=== PATIENT | female | born 1950 | race Caucasian/White ===

== ENCOUNTER 2017-11-25 16:44 | Inpatient (IN) | payer MEDICARE, SELFPAY ==
[2017-11-25] VITALS (12 sets, daily range): BP systolic 96–139; BP diastolic 40–98; PULSE 100–158; RESP 16–20; TEMP 36.6–36.9; O2SAT 94–100; BMI 34.4
[2017-11-25] MEDS: dilTIAZem 25 MG/5 ML SDV 10 MG IV (17:13)
--- NOTE | 2017-11-25 17:24 | DI.RAD.S_ITS ---
PROCEDURE: XR CHEST 1V INDICATIONS: chest pain TECHNIQUE: One view of the chest was acquired. COMPARISON: [facility], , CHEST 1 VIEW, 11/07/2014, 2:26. FINDINGS: Surgical changes and devices: None. Lungs and pleura: No pleural effusions or pneumothorax. Lungs are clear. Mediastinum: Mediastinal contours appear normal. Heart size is normal. Bones and chest wall: No suspicious bony lesions. Overlying soft tissues appear unremarkable. IMPRESSION: No acute process. Dictated by: Amira Dutta M.D. on 11/25/2017 at 17:48 Approved by: Amira Dutta M.D. on 11/25/2017 at 17:48
[2017-11-25 17:38] LABS: Add Manual Diff / Slide Review NO; Basophils Percent Auto 0.8 % (0-2); Eosinophils Percent Auto 1.9 % (2-4); Hemoglobin 13.6 g/dL (12.0-16.0); Lymphocytes Percent Auto 24.7 % (25-40); Mean Corpuscular HGB Conc 33.9 % (30-36); Mean Corpuscular Hemoglobin 35.2 PG (26-34); Mean Corpuscular Volume 103.8 fL (80-100); Monocytes Percent Auto 7.8 % (3-14); Neutrophils Absolute Auto 5100 /uL (3000-5900); Neutrophils Percent Auto 64.8 % (50-75); Platelet Count 304 X10^3/uL (150-400); Red Blood Cell Count 3.85 X10^6/uL (4.0-5.2); Red Cell Distribution Width 14.4 % (11.6-14.8); White Blood Cell Count 7.9 X10^3/uL (4.5-11.0)
[2017-11-25 17:39] LABS: Prothrombin Time 10.9 SECONDS (10.1-12.7)
[2017-11-25 17:41] LABS: PTT Partial Thromboplastin Tim 23 SECONDS (26.4-36.2)
[2017-11-25 17:44] LABS: Alanine Aminotransferase 37 IU/L (9-52); Albumin 4.6 g/dL (3.5-5.0); Albumin Globulin Ratio 1.4 (1.0-2.8); Alkaline Phosphatase 74 U/L (38-126); Aspartate Aminotransferase 37 IU/L (14-36); Bilirubin Total 0.6 mg/dL (0.2-1.3); Blood Urea Nitrogen 39 mg/dL (7-17); Carbon Dioxide 23 mmol/L (22-32); Chloride 104 mmol/L (98-107); Creatine Kinase 123 U/L (30-135); Estimated Glomerular Filt Rate 34.9 mL/min (>60); Globulin 3.3 g/dL (1.7-4.1); Glucose 101 mg/dL (80-110); HEMOLYSIS 32 (0-50); Potassium 4.4 mmol/L (3.4-5.1); Sodium 140 mmol/L (137-145); Total Protein 7.9 g/dL (6.3-8.2)
[2017-11-25 17:56] LABS: Troponin I 0.057 ng/mL (0.01-0.034)
--- NOTE | 2017-11-25 17:56 | PC.NURSE ---
Patient reports history of episodes of rapid heart rate and fluttering in chest over the last couple of years. She states it has always gone away on its own or gone away before I got to the doctor's office. Has never had an EKG showing what rhythm it is but knows it is rapid as she takes her pulse rate at home when it has happened. Today noted as she stepped onto her exercise bike that her heart rate was reading 150bpm. She did not exercise and came directly to the ER. No symptoms, states she does not know when it began but that yesterday when she was on her exercise bike her heart rate was normal.
[2017-11-25 17:59] LABS: CKMB % Relative Index 2.7 % (1.5-5.0); Creatine Kinase MB 3.36 ng/mL (<2.37)
--- NOTE | 2017-11-25 19:18 | PC.NURSE ---
Munira RN Offshore Diver sending Diltiazem drip to ICU after it is mixed.
--- NOTE | 2017-11-25 19:52 | PC.NURSE ---
Pt admitted to ICU with rapid a-fib at rate of 148 bpm. Diltiazem drip. ALert and oriented. VSS. Calm and cooperative.
--- NOTE | 2017-11-25 19:54 | ED_ITS ---
HPI - Arrhythmia/Palpitations General Chief Complaint: Arrhythmia/Palpitations Stated Complaint: BAD EKG Time Seen by Provider: 11/25/17 16:45 Source: patient and family Mode of arrival: ambulatory Limitations: no limitations History of Present Illness HPI narrative: Patient presents to the emergency department at the request of the walk-in clinic for evaluation of an abnormal EKG. Patient was getting on an exercise machine and it registered an elevated heart rate, at which point she went for evaluation. This had happened once before a few months ago and she was told to present for evaluation if it happened again. She denies other symptoms such as chest pain, shortness of breath, palpitations or other. Related Data Home Medications Medication Instructions Recorded Confirmed gabapentin 100 mg capsule 100 mg PO BID cap 11/25/17 11/25/17 levothyroxine 11/25/17 lisinopril 20 1 tab PO DAILY 11/25/17 11/25/17 mg-hydrochlorothiazide 12.5 mg tablet lisinopril-hydrochlorothiazide PO BID 11/25/17 simvastatin 40 mg tablet 40 mg PO QPM 11/25/17 11/25/17 Allergies Allergy/AdvReac Type Severity Reaction Status Date / Time ceftriaxone [CEFTRIAXONE] Allergy Unknown Verified 11/25/17 17:12 spironolactone Allergy Unknown Verified 11/25/17 17:12 [SPIRONOLACTONE] venom-honey bee Allergy Unknown Verified 11/25/17 17:12 [BEE VENOM (HONEY BEE)] Review of Systems Review of Systems All systems reviewed & are unremarkable except as noted in HPI and below Constitutional Denies chills, Denies fever(s), Denies lethargy and Denies weakness Eyes Denies change in vision, Denies eye discharge, Denies irritation and Denies loss of vision ENT Ears, Nose, Mouth, and Throat: Denies change in voice, Denies neck pain and Denies sore throat Cardiovascular Denies chest pain, Denies irregular heart rhythm, Denies lightheadedness, Denies palpitations, Denies dyspnea, Denies dyspnea on exertion and Denies orthopnea Respiratory Denies cough, Denies dyspnea, Denies dyspnea on exertion and Denies wheezing Gastrointestinal Gastrointestinal: Denies abdominal pain, Denies change in bowel habits, Denies diarrhea, Denies nausea and Denies vomiting Genitourinary Denies hematuria, Denies flank pain, Denies urinary incontinence and Denies urinary urgency Musculoskeletal Denies neck pain Integumentary/Breasts Denies pruritus, Denies erythema, Denies rash and Denies wounds Neurologic Denies confusion, Denies loss of vision and Denies weakness Psychiatric Denies anxiety, Denies confusion, Denies depression, Denies homicidal ideation and Denies suicidal ideation Endocrine Denies palpitations Hematologic/Lymphatic Denies easy bruising Allergic/Immunologic Denies wheezing PFSH Medical History Hypertension (Acute) Surgical History H/O total hysterectomy with bilateral salpingo-oophorectomy (BSO) (Acute) History of mastectomy (Acute) Social History household members: spouse Smoking Status: Never smoker alcohol intake: current Exam Narrative Exam Narrative: GENERAL: This is a well-nourished, well-developed patient, in mild distress. HEAD: Atraumatic. Normocephalic. No temporal or scalp tenderness. EYES: Pupils equal round and reactive. Extraocular motions intact. No scleral icterus. No injection or drainage. ENT: Nose without bleeding, purulent drainage or septal hematoma. Throat without erythema, tonsillar hypertrophy or exudate. Uvula midline. Airway patent. NECK: Trachea midline. No JVD or lymphadenopathy. Supple, nontender, no meningeal signs. CARDIOVASCULAR: regular tachycardic rhythm without murmurs, gallops, or rubs. RESPIRATORY: Clear to auscultation. Breath sounds equal bilaterally. No wheezes , rales, or rhonchi. GASTROINTESTINAL: Abdomen soft, non-tender, nondistended. No hepato-splenomegaly , or palpable masses. No guarding. EXTREMITIES: No clubbing, cyanosis, or edema. No joint tenderness, effusion, or edema noted. BACK: Nontender without deformity or crepitance. No flank tenderness. NEURO: AOx3. SKIN: No rash or erythema. Initial Vital Signs Initial Vital Signs: Vital Signs Temperature 98.4 F 11/25/17 16:56 Pulse Rate 158 H 11/25/17 16:56 Respiratory Rate 16 11/25/17 16:56 Blood Pressure 126/97 H 11/25/17 16:56 Pulse Oximetry 100 11/25/17 16:56 Course Orders Ordered: ED Orders 11/25/17 17:00 Complete Blood Count AUTO DIFF Stat Comprehensive Metabolic Panel Stat Partial Thromboplastin Time Stat Prothrombin Time INR Stat Troponin & CK Cardiac Panel Stat 11/25/17 17:24 XR chest 1V Stat EKG-12 Lead Stat 11/25/17 19:24 MRSA PCR Urgent Diltiazem HCl 125 mg/ Dextrose 125 mls @ 5 mls/hr IV TITRATE VENANCIO; Protocol Discontinued Medications Diltiazem HCl (Cardizem) 10 mg IV NOW ONE Stop: 11/25/17 17:06 Last Admin: 11/25/17 17:13 Dose: 10 mg Vital Signs - 8 hr 11/25/17 16:56 11/25/17 17:00 11/25/17 17:13 Temperature 98.4 F Pulse Rate 158 H 156 H 156 H Respiratory Rate 16 16 Blood Pressure 126/97 H 126/97 H Blood Pressure [Left Arm] 106/65 Pulse Oximetry 100 99 11/25/17 17:20 11/25/17 17:51 11/25/17 18:00 Temperature Pulse Rate 104 H 133 H 152 H Respiratory Rate 16 16 16 Blood Pressure Blood Pressure [Left Arm] 106/70 111/75 111/75 Pulse Oximetry 97 97 98 11/25/17 18:29 11/25/17 19:09 Temperature Pulse Rate 156 H 155 H Respiratory Rate 20 16 Blood Pressure 118/86 H Blood Pressure [Left Arm] 117/98 H Pulse Oximetry 96 99 MDM - Arrhythmia/Palpitations Differential Diagnosis Differential diagnosis: Likely palpitations, anxiety, sinus tachycardia, artial fibrillation, artial flutter, ventricular premature beats, supraventricular tachycardia and ventricular tachycardia Lab Data Result diagrams: 11/25/17 17:00 11/25/17 17:00 Lab Results 11/25/17 11/25/17 11/25/17 Range/Units 17:00 17:00 17:00 WBC 7.9 (4.5-11.0) X10^3/uL RBC 3.85 L (4.0-5.2) X10^6/uL Hgb 13.6 (12.0-16.0) g/dL Hct 40.0 (36-46) % MCV 103.8 H (80-100) fL MCH 35.2 H (26-34) PG MCHC 33.9 (30-36) % RDW 14.4 (11.6-14.8) % Plt Count 304 (150-400) X10^3/uL Neut % (Auto) 64.8 (50-75) % Lymph % (Auto) 24.7 L (25-40) % [place] % (Auto) 7.8 (3-14) % Eos % (Auto) 1.9 L (2-4) % Baso % (Auto) 0.8 (0-2) % Neut # (Auto) 5100 (9577-1420) /uL PT 10.9 (10.1-12.7) SECONDS INR 1.0 (0.9-1.3) APTT 23 L (26.4-36.2) SECONDS Sodium 140 (137-145) mmol/L Potassium 4.4 (3.4-5.1) mmol/L Chloride 104 (98-107) mmol/L Carbon Dioxide 23 (22-32) mmol/L BUN 39 H (7-17) mg/dL Creatinine 1.50 H (0.52-1.04) mg/dL Estimated GFR 34.9 L (>60) mL/min BUN/Creatinine Ratio 26.0 H (6-22) Glucose 101 (80-110) mg/dL Calcium 10.0 (8.4-10.2) mg/dL Total Bilirubin 0.6 (0.2-1.3) mg/dL AST 37 H (14-36) IU/L ALT 37 (9-52) IU/L Alkaline Phosphatase 74 (38-126) U/L Total Creatine Kinase 123 (30-135) U/L CK-MB (CK-2) 3.36 H (<2.37) ng/mL CK-MB (CK-2) Rel Index 2.7 (1.5-5.0) % Troponin I 0.057 H (0.01-0.034) ng/mL Total Protein 7.9 (6.3-8.2) g/dL Albumin 4.6 (3.5-5.0) g/dL Globulin 3.3 (1.7-4.1) g/dL Albumin/Globulin Ratio 1.4 (1.0-2.8) ABG Data Attestation: I personally reviewed and interpreted this ABG as follows: ECG Data Attestation: I personally reviewed and interpreted this ECG as follows: Discharge Plan Departure Patient Disposition: Admitted As Inpatient Clinical Impression: Atrial flutter with rapid ventricular response Discharge Date/Time: 11/25/17 19:18 Interventions: ED Discharge Assessment Last Done: 11/25/17 19:09 Admit Date/Time: 11/25/17 18:36 Admit Provider: Gilberto Quintero
[2017-11-25] MEDS: dilTIAZem 25 MG/5 ML SDV 15 MG IV (20:16)
[2017-11-25] MEDS: dilTIAZem 125 MG in DEXTROSE 5 % IN WATER 100 ML IV (20:33)
--- NOTE | 2017-11-25 20:52 | P.HP_ITS ---
History of Present Illness Date Patient Seen: 11/25/17 Time Patient Seen: 18:41 Chief complaint: BAD EKG Narrative: History of present illness Patient is a very pleasant 66 years of age female that notes before getting on her exercise machine she she noticed her pulse rate was running in the 150s on the monitoring device. Patient came to the emergency room for further evaluation. Patient has prior history of tachycardia episode such as this but by the time she gets seen by a physician she is back in a sinus rhythm. The causation of the arrhythmia was not identified. In this case however, patient has noted in rapid AFib by ER physician. Patient was not experiencing any palpitations prior to realizing her heart rate was 150 when getting on the exercise machine. She was having no associated shortness of breath nor chest pain at that time. No nausea. Patient History Medical History Hypertension (Acute) Surgical History H/O total hysterectomy with bilateral salpingo-oophorectomy (BSO) (Acute) History of mastectomy (Acute) Comment: History of hypertension Patient with history of breast cancer in 1993 status post mastectomy History of stem cell transplant and myelo dysplasia History of Graves disease with thyroid replacement therapy History of tachycardia with unclear etiology No history of the following: no history of CHF, diabetes, TIA or CVA, diagnosis of atrial fibrillation atrial fibrillation, congestive heart failure Family & Social History Family History: Reviewed 11/25/17 by Gilberto Quintero MD Family history unavailable: Yes (No history of cancer in first-degree relatives) Social History: household members spouse Prior Living Arrangements Patient is she is a nonsmoker nonalcohol abuser House Safety & Behavioral: Feels Safe in Current Yes Environment Been Physically Hurt or No Threatened By a Person Suicidal Ideation Description None Suicide Plan Description No Plan Tobacco & Substance use: Smoking Status Never smoker alcohol intake current alcohol intake frequency a few times a week Substance Use Type does not use Meds Home Medications Medication Instructions Recorded Confirmed Type allopurinol 300 mg PO QAM 11/25/17 11/25/17 History bupropion HCl 300 mg PO QAM 11/25/17 11/25/17 History gabapentin 100 mg capsule 100 mg PO BID cap 11/25/17 11/25/17 History lansoprazole 15 mg PO QAM 11/25/17 11/25/17 History levothyroxine 112 mcg PO QPM 11/25/17 11/25/17 History lisinopril 20 2 tab PO QAM 11/25/17 11/25/17 History mg-hydrochlorothiazide 12.5 mg tablet simvastatin 40 mg tablet 40 mg PO QPM 11/25/17 11/25/17 History Allergies Allergy/AdvReac Type Severity Reaction Status Date / Time ceftriaxone [CEFTRIAXONE] Allergy Unknown Verified 11/25/17 17:12 spironolactone Allergy Unknown Verified 11/25/17 17:12 [SPIRONOLACTONE] venom-honey bee Allergy Unknown Verified 11/25/17 17:12 [BEE VENOM (HONEY BEE)] Review of Systems Review of Systems All systems reviewed & are unremarkable except as noted in HPI and below Exam Vital Signs (past 8 hours): - 11/25/17 16:56 11/25/17 17:00 11/25/17 17:13 Temperature 98.4 F Pulse Rate 158 H 156 H 156 H Respiratory Rate 16 16 Blood Pressure 126/97 H 126/97 H Blood Pressure [Left Arm] 106/65 Pulse Oximetry 100 99 11/25/17 17:20 11/25/17 17:51 11/25/17 18:00 Temperature Pulse Rate 104 H 133 H 152 H Respiratory Rate 16 16 16 Blood Pressure Blood Pressure [Left Arm] 106/70 111/75 111/75 Pulse Oximetry 97 97 98 11/25/17 18:29 11/25/17 19:09 Temperature Pulse Rate 156 H 155 H Respiratory Rate 20 16 Blood Pressure 118/86 H Blood Pressure [Left Arm] 117/98 H Pulse Oximetry 96 99 Oxygen Delivery Method Room Air Narrative Exam Narrative: General appearance patient is not awake and alert no apparent distress at rest Psychiatric Patient is well oriented to time place and person. Mood is pleasant and cooperative. Affect is appropriate. Skin No rashes or lesions identified Respiratory No wheezes no crackles clear to auscultation with good air flow Eyes Pupils are equal round and reactive to light Ears nose and throat Hearing is intact nose septum to midline no bleeding no oropharyngeal lesions noted Cardiovascular Irregular regular rhythm rate of about 130 per minute. No murmurs noted. PMI nondisplaced. Pulses +3 to extremities Gastrointestinal Soft nontender positive bowel sounds no masses no distention no bruits Neurologic no focal neurologic changes cranial nerves 2-12 grossly intact Motor skeletal Motor strength 5/5 range of motion normal no clubbing noted Objective Labs Result Diagrams: 11/25/17 17:00 11/25/17 17:00 Labs: Laboratory Results - last 24 hr 11/25/17 11/25/17 11/25/17 17:00 17:00 17:00 WBC 7.9 RBC 3.85 L Hgb 13.6 Hct 40.0 MCV 103.8 H MCH 35.2 H MCHC 33.9 RDW 14.4 Plt Count 304 Neut % (Auto) 64.8 Lymph % (Auto) 24.7 L [place] % (Auto) 7.8 Eos % (Auto) 1.9 L Baso % (Auto) 0.8 Neut # (Auto) 5100 PT 10.9 INR 1.0 APTT 23 L Sodium 140 Potassium 4.4 Chloride 104 Carbon Dioxide 23 BUN 39 H Creatinine 1.50 H Estimated GFR 34.9 L BUN/Creatinine Ratio 26.0 H Glucose 101 Calcium 10.0 Total Bilirubin 0.6 AST 37 H ALT 37 Alkaline Phosphatase 74 Total Creatine Kinase 123 CK-MB (CK-2) 3.36 H CK-MB (CK-2) Rel Index 2.7 Troponin I 0.057 H Total Protein 7.9 Albumin 4.6 Globulin 3.3 Albumin/Globulin Ratio 1.4 Assessment & Plan Plan: Assessment/Plan Narrative: 1. Newly diagnosed atrial fibrillation with rapid ventricular response Patient was given a 10 mg IV bolus of diltiazem in the ER. Patient was started on a diltiazem IV infusion at 5 milligrams/hour to start titration for pulse less than 110. Patient still running are fairly notable ventricular response of 139 in the ICU. I requested for the ICU nurse to give the patient an additional 15 mg of diltiazem is an IV bolus. Her blood pressure is stable to permit such bolus. This diltiazem IV infusion to be continue and titrated upward as necessary to maintain pulse less than 110. Note patient has history of Graves disease and treated with Synthroid will check a TSH. Will also request for an Aqua echocardiogram 2D to evaluate for evidence of mitral valve disease also to identify the presence of atrial thrombus if present. A more definitive study would of course be the transesophageal echocardiogram. Patient with a chads Vasc score of 3/9 possible. This puts the puts the patient at risk with an unadjusted ischemic stroke rate of 3.2% per year. Please note the term unadjusted refers to whether the patient was on aspirin. Patient will be started on a anticoagulant medication by tomorrow morning that will be continued in outpatient setting. In the meantime will give patient a dose of Lovenox at 85 mg subcu b.i.d. as therapeutic treatment for the AFib. 2. History of Graves disease status post ablation therapy Continue patient's Synthroid medication. Note will be checking a TSH with a reflex T4 if indicated. 3. Elevated troponin level Will continue to monitor patient's troponin level and obtain a 12 lead EKG if she goes into a sinus rhythm to establish what her baseline EKG is. Time Spent With Patient Time with patient: Greater than 35 minutes (65 min)
[2017-11-25] MEDS: GABAPENTIN 100 MG CAPSULE PO (21:47)
[2017-11-25] MEDS: ENOXAPARIN 100 MG/ML SYRINGE 85 MG SUBCUT (21:47)
[2017-11-25 21:50] LABS: TSH w/ Reflex to FT4 0.39 uIU/mL (0.47-4.68)
[2017-11-25 22:25] LABS: Free T4, Direct Thyroxine 1.22 ng/dL (0.78-2.19)
[2017-11-26] VITALS (17 sets, daily range): BP systolic 78–116; BP diastolic 49–68; PULSE 70–99; RESP 13–19; TEMP 36.5–37.2; O2SAT 94–98
--- NOTE | 2017-11-26 00:55 | PC.NURSE ---
Addendum entered by Arlet Bowie R.N. 11/26/17 06:43: BP has remained somewhat low overnight. Pt remains asymptomatic. MAPs > 65. SR with HR in the 70's. No acute changes this shift. Original Note: Pt converted to SB with HR 54-60's. BP 82/46 (58) - pt asymptomatic without complaints. Remains A/O X 3. Diltiazem GTT turned off. Pt remains in SR currently at 71. Will monitor.
[2017-11-26] MEDS: PANTOPRAZOLE 40 MG TABLET PO (06:39)
[2017-11-26 07:53] LABS: Add Manual Diff / Slide Review NO; Basophils Percent Auto 0.8 % (0-2); Eosinophils Percent Auto 2.1 % (2-4); Hematocrit 33.8 % (36-46); Hemoglobin 11.5 g/dL (12.0-16.0); Lymphocytes Percent Auto 22.9 % (25-40); Mean Corpuscular HGB Conc 33.9 % (30-36); Mean Corpuscular Hemoglobin 35.3 PG (26-34); Mean Corpuscular Volume 104.2 fL (80-100); Monocytes Percent Auto 8.3 % (3-14); Neutrophils Absolute Auto 4800 /uL (3000-5900); Neutrophils Percent Auto 65.9 % (50-75); Platelet Count 234 X10^3/uL (150-400); Red Blood Cell Count 3.24 X10^6/uL (4.0-5.2); Red Cell Distribution Width 14.7 % (11.6-14.8); White Blood Cell Count 7.2 X10^3/uL (4.5-11.0)
[2017-11-26 08:02] LABS: Alanine Aminotransferase 32 IU/L (9-52); Albumin 3.6 g/dL (3.5-5.0); Albumin Globulin Ratio 1.4 (1.0-2.8); Alkaline Phosphatase 60 U/L (38-126); Aspartate Aminotransferase 25 IU/L (14-36); BUN Creatinine Ratio 27.3 (6-22); Bilirubin Total 0.4 mg/dL (0.2-1.3); Blood Urea Nitrogen 41 mg/dL (7-17); Calcium 9.2 mg/dL (8.4-10.2); Carbon Dioxide 26 mmol/L (22-32); Chloride 106 mmol/L (98-107); Creatine Kinase 71 U/L (30-135); Estimated Glomerular Filt Rate 34.9 mL/min (>60); Globulin 2.5 g/dL (1.7-4.1); Glucose 107 mg/dL (80-110); HEMOLYSIS < 15 (0-50); Potassium 4.4 mmol/L (3.4-5.1); Sodium 140 mmol/L (137-145); Total Protein 6.1 g/dL (6.3-8.2)
[2017-11-26 08:13] LABS: Troponin I 0.041 ng/mL (0.01-0.034)
[2017-11-26] MEDS: ENOXAPARIN 100 MG/ML SYRINGE 85 MG SUBCUT (08:46)
[2017-11-26] MEDS: dilTIAZem 30 MG TABLET 60 MG PO (08:46)
[2017-11-26] MEDS: ALLOPURINOL 300 MG TABLET PO (08:48)
[2017-11-26] MEDS: GABAPENTIN 100 MG CAPSULE PO (08:48)
[2017-11-26] MEDS: hydroCHLOROthiazide 25 MG TABLET PO (08:48)
[2017-11-26] MEDS: buPROPion XL 150 MG TAB 300 MG PO (08:51)
--- NOTE | 2017-11-26 13:18 | DI.ECHO.S_ITS ---
Echocardiogram Report + + :Name: ONEIL DE LOS SANTOS Study Date: 11/26/2017 Height: 61 in : :[facility] Weight: 182 lb: : Gender: Female BSA: 1.8 m2 : :: 1950 Age: 66 yrs BP: 95/37 mmHg: :Reason For Study: AFIB : : Performed By: Ami Andino : :Referring: UNSPECIFIED : + + Interpretation Summary Patient was in normal sinus rhythm during the study. Left ventricular wall thickness is mildly increased. The ejection fraction is estimated to be 60-65%. There is moderate mitral regurgitation, directly posteriorly secondary to restricted motion of the posterior mitral valve leaflet. The right ventricle is normal in size and function. Procedure: A two-dimensional transthoracic echocardiogram with color flow and Doppler was performed. The study quality was technically adequate. There is no prior echocardiogram noted for this patient. The heart rate ranged between 75-80 bpm during the study. Left Ventricle: Left ventricular wall thickness is mildly increased. The left ventricle is normal in size. A false chord is noted (normal variant). The ejection fraction is estimated to be 60-65%. Septal motion is consistent with conduction abnormality. Diastolic function could not be accurately assessed due to contradictory data. Right Ventricle: The right ventricle is normal in size and function. TAPSE 1.9 cm. Atria: Both atria are normal in size. There is no Doppler evidence for an interatrial shunt. The thickening of interatrial septum suggests lipomatous hypertrophy. Mitral Valve: There is mild to moderate mitral annular calcification. The mitral valve leaflets appear thickened, but open well. The mitral valve mean gradient is 3 mmHg. There is moderate mitral regurgitation. Aortic Valve: The aortic valve is not well visualized. The aortic valve opens well. Probably trileaflet. There is no hemodynamically significant valvular aortic stenosis. There is mild aortic regurgitation. Tricuspid Valve: The tricuspid valve is normal in structure and function. There is mild tricuspid regurgitation. The right ventricular systolic pressure is estimated at 30 mmHg assuming a right atrial pressure of 3 mm Hg. Pulmonic Valve: The pulmonic valve is normal in structure and function. There is a trace or physiologic amount of pulmonic regurgitation. Great Vessels: The aortic root is normal size. The ascending aorta is normal in size. The aortic arch is normal in size. The pulmonary artery is normal size. The IVC is of normal diameter and collapses greater than 50% with a sniff. This suggests a low right atrial pressure of 3 mm Hg. Pericardium/ Pleura There is a trivial pericardial effusion noted. There is no pleural effusion. MMode/2D Measurements & Calculations LVIDd: 3.7 cm LVOT diam: 1.9 cm LVIDs: 2.3 cm Ao root diam: 2.8 cm FS: 37.8 % asc Aorta Diam: 3.3 cm EPSS: 0.23 cm Ao Arch Diam (Prox Trans): 2.8 cm IVSd: 1.0 cm LVPWd: 1.2 cm LV babcock. diameter/BSA (cm/m^2): 2.0 LV sys. diameter/BSA (cm/m^2): 1.3 LA A2 area: 18.5 cm2 RA long axis: 3.7 cm LA A4 area: 20.2 cm2 RA area: 8.6 cm2 LA length (vol): 5.7 cm RA vol: 17.2 ml LA vol: 55.8 ml RA : 9.5 ml/m2 LA vol index: 30.8 ml/m2 IVC diam: 1.9 cm RVD1 (basal): 2.9 cm TAPSE: 1.9 cm Doppler Measurements & Calculations Ao V2 max: 187.2 cm/sec LVOT Max [place]: 107.3 cm/sec Ao V2 mean: 134.5 cm/sec LV V1 max P.6 mmHg Ao max P.0 mmHg LV V1 VTI: 21.9 cm Ao mean P.1 mmHg ALTAGRACIA(I,D): 1.8 cm2 Ao V2 VTI: 36.6 cm ALTAGRACIA(V,D): 1.7 cm2 sev ratio: 0.60 ALTAGRACIA indexed to BSA (cm^2/m^2): 0.97 MV E max rio: 133.4 cm/sec TR max rio: 258.4 cm/sec MV A max rio: 89.4 cm/sec TR max P.7 mmHg MV E/A: 1.5 Med Peak E' Rio: 6.0 cm/sec E/E' med: 22.2 Lat Peak E' Rio: 9.6 cm/sec E/E' lat: 13.9 E/e' average: 18.1 MV dec time: 0.26 sec MVA(VTI): 1.6 cm2 MV V2 mean: 82.3 cm/sec MV mean P.0 mmHg MV V2 VTI: 39.7 cm _ Reading Physician:01:18 PM
--- NOTE | 2017-11-26 13:25 | CM.DANOTE ---
Discharge Planning/Care Management CM Discharge Assessment Start: 11/26/17 13:22 Freq: Status: Active Protocol: Document 11/26/17 13:22 (Rec: 11/26/17 13:25 [id number]) Discharge Planning Assessment Assigned Naval Architect Specialist SIGNAL TESTER Advance Directives? Yes Advance Directives on File No History Provided By Patient Medical Record Has Patient been admitted in last 30 No days? Prior Living Arrangements House Household Members spouse Type of transporation used prior to Drives own vehicle admit Independent with ADL's Yes Is patient alert and oriented? Yes Caregiver for Another No Discharge Plan Home Referrals Initiated None needed Review Status In Process Met with patient: Notified patient of CM team role and patient understood. Patient does not have any concerns or discharge needs at this time. Patient currently researching medication options that fall under her Medicare Part D coverage. Patient to decide and notify MD of selection prior to discharge. Patient is hopeful to discharge today. Spouse/Umair to provide transportation home.
--- NOTE | 2017-11-26 14:08 | PC.NURSE ---
Called to Dr. Quintero [phone] to clarify medication orders for pt. Pts BP has ranged 80-110s systolic. Although she is asymptomatic of low blood pressure, she has not received her lisinopril this morning as per her home routine. She is scheduled to have diltiazem PO at 1200. Her BP is 100/66. Additionally she is concerned because diltiazem is not covered under her prescription formulary making this a very expensive medication for her to fill. The patient is wondering if there is a different medication that can be prescribed. I spoke with Dr. Quintero via telephone at [phone] who stated he would be down here to round soon and address these concerns.
[2017-11-26] MEDS: WARFARIN 2 MG TABLET 4 MG PO (17:03)
[2017-11-26] MEDS: LISINOPRIL 10 MG TABLET PO (17:03)
[2017-11-26] MEDS: CHLORTHALIDONE 25 MG TABLET PO (17:03)
[2017-11-26] MEDS: METOPROLOL 25 MG TABLET PO (17:17)
--- NOTE | 2017-11-26 18:21 | PC.NURSE ---
joe note pt denies chest discomfort, palpitations, SOB. Pt independent in room and with all ADLs. Dr. Quintero did extensive med teaching with pt and . IV removed, tele removed, pt taken to car in wheelchair.
--- NOTE | 2017-11-26 22:32 | PM.DS.1 ---
History of Present Illness Date Patient Seen: 11/26/17 Time Patient Seen: 12:32 Chief complaint: Rapid heart rate Narrative: History of present illness Patient is a very pleasant 66 years of age female that notes before getting on her exercise machine she she noticed her pulse rate was running in the 150s on the monitoring device. Patient came to the emergency room for further evaluation. Patient has prior history of tachycardia episode such as this but by the time she gets seen by a physician she is back in a sinus rhythm. The causation of the arrhythmia was not identified. In this case however, patient has noted in rapid AFib by ER physician. Patient was not experiencing any palpitations prior to realizing her heart rate was 150 when getting on the exercise machine. She was having no associated shortness of breath nor chest pain at that time. No nausea. Discharge Providers Date of admission: 11/25/17 18:36 Discharge provider: Gilberto Quintero MD Summary Discharge Diagnosis: 1. rapid atrial fibrillation 2. Hypertension 3. History of breast cancer with treatment 4. Myelodysplastic disorder Hospital Course: Patient was admitted to the hospital with rapid AFib initially. She was placed on a diltiazem IV infusion. The serum troponin was checked and negative. Patient notes in questioning that she has had episodes of tachycardia in the past but they were never identified for the arrhythmia that was causing the tachycardia. In this case the AFib was identified. Patient was noted to have a chads Vasc score of 3/9. Anticoagulant therapy is recommended for score of 2 or greater. Patient was in agreement to start on anticoagulant as we discussed. After checking with her insurance company she preferred Coumadin. Following morning the patient was in sinus rhythm. Patient notes that diltiazem was not covered by her insurance in the outpatient setting. Metoprolol was covered. I spoke to the patient's primary care physician Dr. Soni Lucas and she agreed to manage patient's coumdin in outpatient setting. Patient will be discharged today and her next INR will be in a.m. on MondayNovember 29. Patient to call her primary care physician's office to find where to have her blood drawn on Monday morning. Her PCP will direct her on her dosing of her Coumadin. In the meantime patient to be discharged on 2 mg tablets of Coumadin and taking 2 tablets daily equally 4 mg. In view of patient starting on metoprolol at 25 mg t.i.d. will reduce the dose of lisinopril from 40 mg daily down to 10 mg daily. Patient will check her blood pressure later in the day. She will take metoprolol tartrate 25 mg in the morning 1 after lunch and then check her blood pressure and her pulse in the evening. If her pulse rate is low less than 70 it may be prudent to hold the 3rd dose of the metoprolol. If the patient's blood pressure is elevated with a systolic greater than 170 for example or diastolic greater than 90 then she could take an additional dose of lisinopril 10 mg instead of metoprolol if her pulse is less than 70. This is directed on her prescription on discharge. The target INR for her AFib will be between 2 and 3. Will proceed to discharge Status at Discharge Functional status at discharge: independent ambulation Overall status at discharge: patient is back to baseline Time Spent with Patient Greater than 30 minutes (35 min) Exam Vital Signs (past 8 hours): - 11/26/17 15:16 Temperature 99.0 F Pulse Rate 76 Respiratory Rate 16 Blood Pressure 115/68 Oxygen Delivery Method Room Air Narrative Exam Narrative: General appearance Patient is awake and alert no apparent distress Psychiatric Well oriented mood is pleasant affect is appropriate Respiratory Clear to auscultation good airflow no wheezes crackles Cardiovascular Regular in rate and rhythm GI Soft benign nontender positive bowel sounds Objective Labs Result Diagrams: 11/26/17 07:45 11/26/17 07:45 Labs: Laboratory Results - last 24 hr 11/26/17 11/26/17 07:45 07:45 WBC 7.2 RBC 3.24 L Hgb 11.5 L Hct 33.8 L MCV 104.2 H MCH 35.3 H MCHC 33.9 RDW 14.7 Plt Count 234 Neut % (Auto) 65.9 Lymph % (Auto) 22.9 L [place] % (Auto) 8.3 Eos % (Auto) 2.1 Baso % (Auto) 0.8 Neut # (Auto) 4800 Sodium 140 Potassium 4.4 Chloride 106 Carbon Dioxide 26 BUN 41 H Creatinine 1.50 H Estimated GFR 34.9 L BUN/Creatinine Ratio 27.3 H Glucose 107 Calcium 9.2 Total Bilirubin 0.4 AST 25 ALT 32 Alkaline Phosphatase 60 Total Creatine Kinase 71 Troponin I 0.041 H Total Protein 6.1 L Albumin 3.6 Globulin 2.5 Albumin/Globulin Ratio 1.4 Discharge Plan Discharge Plan Patient Disposition: Home, Self-Care Discharge comment: patient's PCP Dr Soni Lucas [phone] will be managing patient's Coumadin dosing in outpatient setting. First INR might be in AM MondayNov 29 and will be designated by Dr Lucas's office early this week. Patient can call Dr Lucas's office to get instructions on where to go to have blood drawn for INR test. Provider Discharge Instructions Diet: Diet as Tolerated and Regular Activity: no exertion until cleared by your PCP. Skin/Wound/Dressing Care Report to your healthcare provider any signs of infection, such as:: chills, fever, increased pain and unusual drainage Discharge Data Attending Provider: Gilberto Quintero Admit Date/Time: 11/25/17 18:36 Discharges patient from system. Discharge Date/Time: 11/26/17 18:24
== END 2017-11-26 18:24 | disposition home or self-care (01) | DRG 309 ==
LOC: ED 18:17 → ICU 11-26 07:32
PROVIDERS: Admitting Provider Internal Medicine; Emergency Provider Emergency Medicine; Visit Provider Internal Medicine
DX: I48.91 Unspecified atrial fibrillation (principal); C94.6 Myelodysplastic disease, not elsewhere classified; I10 Essential (primary) hypertension; E05.00 Thyrotoxicosis with diffuse goiter without thyrotoxic crisis or storm
CPT/HCPCS: 36415; 36591; 71045; 80053; 82550; 82553; 84439; 84443; 84484; 85025; 85610; 85730; 87797; 93005; 93010; 93041; 93306; 96374; 99283; 99285; J1650

== ENCOUNTER → 2017-11-28 11:08 | Outpatient (CLI) | payer MEDICARE, SELFPAY ==
[2017-11-25 19:21] VITALS: BMI 34.4
[2017-11-28 12:27] LABS: INR 1.1 (0.9-1.3); Prothrombin Time 12.3 SECONDS (10.1-12.7)
== END ==
PROVIDERS: PCP Internal Medicine; Visit Provider Internal Medicine
DX: I48.91 Unspecified atrial fibrillation (principal); I48.92 Unspecified atrial flutter; Z79.01 Long term (current) use of anticoagulants
CPT/HCPCS: 36415; 85610

== ENCOUNTER → 2017-12-05 11:31 | Outpatient (CLI) | payer MEDICARE, SELFPAY ==
[2017-11-25 19:21] VITALS: BMI 34.4
[2017-12-05 12:08] LABS: INR 2.8 (0.9-1.3); Prothrombin Time 31.6 SECONDS (10.1-12.7)
== END ==
PROVIDERS: PCP Internal Medicine; Visit Provider Internal Medicine
DX: I48.91 Unspecified atrial fibrillation (principal); I48.92 Unspecified atrial flutter; Z79.01 Long term (current) use of anticoagulants
CPT/HCPCS: 36415; 85610

== ENCOUNTER → 2017-12-12 14:20 | Outpatient (CLI) | payer MEDICARE, SELFPAY ==
[2017-11-25 19:21] VITALS: BMI 34.4
[2017-12-12 14:48] LABS: INR 4.2 (0.9-1.3); Prothrombin Time 46.7 SECONDS (10.1-12.7)
== END ==
PROVIDERS: PCP Internal Medicine; Visit Provider Internal Medicine
DX: I48.91 Unspecified atrial fibrillation (principal); I48.92 Unspecified atrial flutter; Z79.01 Long term (current) use of anticoagulants
CPT/HCPCS: 36415; 85610

== ENCOUNTER → 2017-12-15 14:31 | Outpatient (CLI) | payer MEDICARE, SELFPAY ==
[2017-11-25 19:21] VITALS: BMI 34.4
[2017-12-15 14:54] LABS: Prothrombin Time 21.4 SECONDS (10.1-12.7)
== END ==
PROVIDERS: PCP Internal Medicine; Visit Provider Internal Medicine
DX: I48.92 Unspecified atrial flutter (principal); Z79.01 Long term (current) use of anticoagulants
CPT/HCPCS: 36415; 85610

== ENCOUNTER → 2017-12-21 08:41 | Outpatient (CLI) | payer MEDICARE, SELFPAY ==
[2017-11-25 19:21] VITALS: BMI 34.4
[2017-12-21 10:45] LABS: INR 1.8 (0.9-1.3); Prothrombin Time 19.9 SECONDS (10.1-12.7)
== END ==
PROVIDERS: PCP Internal Medicine; Visit Provider Internal Medicine
DX: I48.91 Unspecified atrial fibrillation (principal); I48.92 Unspecified atrial flutter; Z79.01 Long term (current) use of anticoagulants
CPT/HCPCS: 36415; 85610

== ENCOUNTER → 2017-12-28 08:30 | Outpatient (CLI) | payer MEDICARE, SELFPAY ==
[2017-11-25 19:21] VITALS: BMI 34.4
[2017-12-28 09:50] LABS: INR 3.1 (0.9-1.3); Prothrombin Time 34.5 SECONDS (10.1-12.7)
== END ==
PROVIDERS: PCP Internal Medicine; Visit Provider Internal Medicine
DX: I48.91 Unspecified atrial fibrillation (principal); I48.92 Unspecified atrial flutter; Z79.01 Long term (current) use of anticoagulants
CPT/HCPCS: 36415; 85610

== ENCOUNTER → 2018-01-17 12:15 | Outpatient (CLI) | payer MEDICARE, SELFPAY ==
[2017-11-25 19:21] VITALS: BMI 34.4
[2018-01-17 14:26] LABS: INR 3.3 (0.9-1.3); Prothrombin Time 36.3 SECONDS (10.1-12.7)
== END ==
PROVIDERS: PCP Internal Medicine; Visit Provider Internal Medicine
DX: I48.91 Unspecified atrial fibrillation (principal); I48.92 Unspecified atrial flutter; Z79.01 Long term (current) use of anticoagulants
CPT/HCPCS: 36415; 85610

== ENCOUNTER → 2018-01-22 09:00 | Outpatient (CLI) | payer MEDICARE, SELFPAY ==
[2017-11-25 19:21] VITALS: BMI 34.4
== END ==
PROVIDERS: PCP Internal Medicine
DX: Z23 Encounter for immunization (principal)
CPT/HCPCS: 90471; 90662

== ENCOUNTER → 2018-01-31 10:00 | Outpatient (CLI) | payer MEDICARE, SELFPAY ==
[2017-11-25 19:21] VITALS: BMI 34.4
[2018-01-31 10:53] LABS: INR 2.6 (0.9-1.3); Prothrombin Time 28.4 SECONDS (10.1-12.7)
== END ==
PROVIDERS: PCP Internal Medicine; Visit Provider Internal Medicine
DX: I48.91 Unspecified atrial fibrillation (principal); I48.92 Unspecified atrial flutter; Z79.01 Long term (current) use of anticoagulants
CPT/HCPCS: 36415; 85610

== ENCOUNTER → 2018-02-28 13:54 | Outpatient (CLI) | payer MEDICARE, SELFPAY ==
[2017-11-25 19:21] VITALS: BMI 34.4
[2018-02-28 15:07] LABS: INR 2.7 (0.9-1.3)
== END ==
PROVIDERS: PCP Internal Medicine; Visit Provider Internal Medicine
DX: I48.91 Unspecified atrial fibrillation (principal); I48.92 Unspecified atrial flutter; Z79.01 Long term (current) use of anticoagulants
CPT/HCPCS: 36415; 85610

== ENCOUNTER → 2018-04-02 08:36 | Outpatient (CLI) | payer MEDICARE, SELFPAY ==
[2017-11-25 19:21] VITALS: BMI 34.4
[2018-04-02 09:38] LABS: INR 2.8 (0.9-1.3); Prothrombin Time 33.7 SECONDS (10.1-12.7)
== END ==
PROVIDERS: PCP Internal Medicine; Visit Provider Internal Medicine
DX: I48.91 Unspecified atrial fibrillation (principal); I48.92 Unspecified atrial flutter; Z79.01 Long term (current) use of anticoagulants
CPT/HCPCS: 36415; 85610

== ENCOUNTER → 2018-05-30 12:46 | Outpatient (CLI) | payer MEDICARE, SELFPAY ==
[2017-11-25 19:21] VITALS: BMI 34.4
[2018-05-30 13:19] LABS: INR 2.9 (0.9-1.3); Prothrombin Time 34.2 SECONDS (10.1-12.7)
== END ==
PROVIDERS: PCP Internal Medicine; Visit Provider Internal Medicine
DX: I48.91 Unspecified atrial fibrillation (principal); I48.92 Unspecified atrial flutter; Z79.01 Long term (current) use of anticoagulants
CPT/HCPCS: 36415; 85610

== ENCOUNTER → 2018-07-02 11:23 | Outpatient (CLI) | payer MEDICARE, SELFPAY ==
[2017-11-25 19:21] VITALS: BMI 34.4
[2018-07-02 12:09] LABS: INR 2.7 (0.9-1.3); Prothrombin Time 31.3 SECONDS (10.1-12.7)
== END ==
PROVIDERS: PCP Internal Medicine; Visit Provider Internal Medicine
DX: I48.91 Unspecified atrial fibrillation (principal); I48.92 Unspecified atrial flutter; Z79.01 Long term (current) use of anticoagulants
CPT/HCPCS: 36415; 85610

== ENCOUNTER → 2018-08-01 10:24 | Outpatient (CLI) | payer MEDICARE, SELFPAY ==
[2017-11-25 19:21] VITALS: BMI 34.4
[2018-08-01 11:07] LABS: INR 1.5 (0.9-1.3)
== END ==
PROVIDERS: PCP Internal Medicine; Visit Provider Internal Medicine
DX: I48.91 Unspecified atrial fibrillation (principal); I48.92 Unspecified atrial flutter; Z79.01 Long term (current) use of anticoagulants
CPT/HCPCS: 36415; 85610

== ENCOUNTER → 2018-08-20 08:25 | Outpatient (CLI) | payer MEDICARE, SELFPAY ==
[2017-11-25 19:21] VITALS: BMI 34.4
[2018-08-20 10:28] LABS: INR 3.8 (0.9-1.3); Prothrombin Time 45.1 SECONDS (10.1-12.7)
== END ==
PROVIDERS: PCP Internal Medicine; Visit Provider Internal Medicine
DX: I48.91 Unspecified atrial fibrillation (principal); I48.92 Unspecified atrial flutter; Z79.01 Long term (current) use of anticoagulants
CPT/HCPCS: 36415; 85610

== ENCOUNTER → 2018-08-24 10:27 | Outpatient (CLI) | payer MEDICARE, SELFPAY ==
[2017-11-25 19:21] VITALS: BMI 34.4
[2018-08-24 11:58] LABS: Prothrombin Time 23.6 SECONDS (10.1-12.7)
== END ==
PROVIDERS: PCP Internal Medicine; Visit Provider Internal Medicine
DX: I48.91 Unspecified atrial fibrillation (principal); I48.92 Unspecified atrial flutter; Z79.01 Long term (current) use of anticoagulants
CPT/HCPCS: 36415; 85610

== ENCOUNTER → 2018-09-06 12:46 | Outpatient (CLI) | payer MEDICARE, SELFPAY ==
[2017-11-25 19:21] VITALS: BMI 34.4
[2018-09-06 13:16] LABS: INR 2.5 (0.9-1.3); Prothrombin Time 29.5 SECONDS (10.1-12.7)
== END ==
PROVIDERS: PCP Internal Medicine; Visit Provider Internal Medicine
DX: I48.91 Unspecified atrial fibrillation (principal); I48.92 Unspecified atrial flutter; Z79.01 Long term (current) use of anticoagulants
CPT/HCPCS: 36415; 85610

== ENCOUNTER → 2018-09-20 12:44 | Outpatient (CLI) | payer MEDICARE, SELFPAY ==
[2017-11-25 19:21] VITALS: BMI 34.4
[2018-09-20 13:19] LABS: INR 3.1 (0.9-1.3); Prothrombin Time 36.8 SECONDS (10.1-12.7)
== END ==
PROVIDERS: PCP Internal Medicine; Visit Provider Internal Medicine
DX: I48.91 Unspecified atrial fibrillation (principal); I48.92 Unspecified atrial flutter; Z79.01 Long term (current) use of anticoagulants
CPT/HCPCS: 36415; 85610

== ENCOUNTER → 2018-10-25 12:24 | Outpatient (CLI) | payer MEDICARE, SELFPAY ==
[2017-11-25 19:21] VITALS: BMI 34.4
[2018-10-25 13:24] LABS: Prothrombin Time 23.2 SECONDS (10.1-12.7)
== END ==
PROVIDERS: PCP Internal Medicine; Visit Provider Internal Medicine
DX: I48.91 Unspecified atrial fibrillation (principal); I48.92 Unspecified atrial flutter; Z79.01 Long term (current) use of anticoagulants
CPT/HCPCS: 36415; 85610

== ENCOUNTER → 2018-12-05 10:51 | Outpatient (CLI) | payer MEDICARE, SELFPAY ==
[2017-11-25 19:21] VITALS: BMI 34.4
[2018-12-05 11:42] LABS: INR 3.9 (0.9-1.3); Prothrombin Time 45.8 SECONDS (10.1-12.7)
== END ==
PROVIDERS: PCP Internal Medicine; Visit Provider Internal Medicine
DX: I48.91 Unspecified atrial fibrillation (principal); I48.92 Unspecified atrial flutter; Z79.01 Long term (current) use of anticoagulants
CPT/HCPCS: 36415; 85610

== ENCOUNTER → 2019-03-29 11:55 | Outpatient (CLI) | payer MEDICARE, SELFPAY ==
[2017-11-25 19:21] VITALS: BMI 34.4
[2019-03-29 12:28] LABS: INR 2.1 (0.9-1.3); Prothrombin Time 24.1 SECONDS (10.1-12.7)
== END ==
PROVIDERS: PCP Internal Medicine; Visit Provider Internal Medicine
DX: I48.91 Unspecified atrial fibrillation (principal); I48.92 Unspecified atrial flutter; Z79.01 Long term (current) use of anticoagulants
CPT/HCPCS: 36415; 85610

== ENCOUNTER → 2020-09-21 13:12 | Outpatient (CLI) | payer MEDICARE, SELFPAY ==
[2017-11-25 19:21] VITALS: BMI 34.4
[2020-09-21 16:17] LABS: COVID-19 CEPHEID PCR (VTM/NP) Negative (Negative)
== END ==
PROVIDERS: PCP Internal Medicine; Visit Provider Physician Assistant
DX: Z20.822 Contact with and (suspected) exposure to COVID-19 (principal); Z01.812 Encounter for preprocedural laboratory examination
CPT/HCPCS: C9803; U0003

== ENCOUNTER 2023-07-17 14:00 | Outpatient (RCR) | payer MEDICARE, SELFPAY ==
[2017-11-25 19:21] VITALS: BMI 34.4
--- NOTE | 2023-06-13 14:06 | PT.OIE ---
Current Diagnoses Parkinsonism, unspecified (06/13/23) Other specified disorders of brain (06/13/23) Unspecified disorder of binocular movement (06/13/23) Other abnormalities of gait and mobility (06/13/23) Apraxia (06/13/23) Unspecified fall, sequela (06/13/23) Dependence on wheelchair (06/13/23) Past Medical History (Last Reviewed 11/25/17 @ 20:37 by Gilberto Quintero MD) Hypertension Past Surgical History (Last Reviewed 11/25/17 @ 20:37 by Gilberto Quintero MD) H/O total hysterectomy with bilateral salpingo-oophorectomy (BSO) History of mastectomy Visit Care Team Role Provider Type Soni Lucas MD Family Provider Non-Staff Primary Care Provider Specialty: Internal Medicine Address: [address] [place] [address] [address], [place], [address] Email: Beka Marx MD Attending Provider Non-Staff Referring Provider Specialty: Psychiatry Address: [address] [place] [address], [address], [place], [place], [facility] Email: Physical Therapy Initial Evaluation PT-OP-A Visit Information Start: 06/13/23 10:44 Freq: Status: Active Protocol: Document 06/13/23 10:54 MB (Rec: 06/13/23 11:44 MB [id number]) Out-Patient Physical Therapy Visit Information Visit Information Visit Type Initial Evaluation Visit Note 04/26 before progress note Visit Start Time 11:00 Visit Stop Time 12:00 Visit Number 1 Number of FINISHED GARMENT INSPECTOR Visits 0 Evaluation Information Evaluation Date 06/13/23 PT-OP-B Current Condition Start: 06/13/23 10:44 Freq: Status: Active Protocol: Document 06/13/23 10:54 MB (Rec: 06/13/23 11:44 MB [id number]) Current Condition History of Current Condition Onset Date 2018 Current Complaints Weakness and unsteady walking History of Current Condition Pt, Farhana, and spouse, Donavan, arrive to the appointment and pt transported in the w/c. Pt was diagnosed with supranuclear palsy in April of 2023. Pt saw neurologist in 2019 d/t trouble with walking. She had a small tremor at the time. The movement specialist did a test with her eyes and did not see any tracking/a normal response with an eye exam and she sees neuro opthalmologist in August of 2023. Pt is a furniture walker at home. She uses transfer walker chair in the house as well as as pushes it. She uses a power chair for longer walks. She has a ramp to enter her home and they are starting to use it. She is showering I. She is standing in the shower and has does not have grab bars. She is interested in the OT who does home assessments. She is sitting to do her dressing. Pt has been doing a lot of rigorous exercises in the bed with weights. Kvng states that pt does get more challenged with fatigue. A little bit of extra stress increases the freezing. Treatment Goals Patient/Caregiver Goals To do better with her walking and to slow the progression PT-OP-C Subjective Start: 06/13/23 10:44 Freq: Status: Active Protocol: Document 06/13/23 10:54 MB (Rec: 06/13/23 11:44 MB [id number]) OP-PT Subjective Patient Comments Patient Comments See above Patient Questionnaires Other Questionnaire Name and Score FES score is 55/69 reflecting high concern for falling PT-OP-D Balance Start: 06/13/23 10:44 Freq: Status: Active Protocol: Document 06/13/23 10:54 MB (Rec: 06/13/23 14:03 MB [id number]) OP-PT Balance Assessment Sitting Balance Static Sitting Balance Ability Good Dynamic Sitting Balance Ability Fair Standing Balance Static Standing Balance Ability Fair Dynamic Standing Balance Ability Poor Device Used CGA from PT or wall or w/c walker Balance Tests Other Other Balance Tests Performed Pt must use wall and requires increased time to get into Romberg and she holds position for 20 sec. LOB with Romberg with EC. 3 sec SLS on right leg and 0 sec on left leg. Pinto Fall Scale Copyright Permission PT-OP-G Mobility & Gait Start: 06/13/23 10:44 Freq: Status: Active Protocol: Document 06/13/23 10:54 MB (Rec: 06/13/23 14:03 MB [id number]) OP Gait Assessment Comments Gait Comments Pt requires CGA to gait train with her w/c walker and she requires cues to step closer to it. It is too tall for her and her states it is at that height so that he can use it to push her when it is being used as a w/c. Ed pt and in benefits of a rollator from [employer] to allow a smaller AD for gait at home and in the PT clinic and they are open to going to look for a device PT-OP-H Neuro Start: 06/13/23 10:44 Freq: Status: Active Protocol: Document 06/13/23 10:54 MB (Rec: 06/13/23 14:03 MB [id number]) Coordination Evaluation Upper Extremity Tests Left Finger to Nose Test Minimal Impairment Pronation/Supination Test Minimal Impairment Right Finger to Nose Test Minimal Impairment Pronation/Supination Test Minimal Impairment Lower Extremity Tests Left Alternate Heel to Knee; Heel to Toe Test Minimal Impairment Foot Tapping Test Moderate Impairment Right Alternate Heel to Knee; Heel to Toe Test Minimal Impairment Foot Tapping Test Minimal Impairment Vital Signs Comments Vital Signs Comments Pt denies light-headedness when getting up and so did not check orthostatics PT-OP-J Posture/Palpation/Skin Start: 06/13/23 10:44 Freq: Status: Active Protocol: Document 06/13/23 10:54 MB (Rec: 06/13/23 14:03 MB [id number]) Posture Evaluation Comments Posture Comments Severe scoliotic posture in standing with flexed posture at hips and SB and rotation to the right PT-OP-K Range of Motion Start: 06/13/23 10:44 Freq: Status: Active Protocol: Document 06/13/23 10:54 MB (Rec: 06/13/23 14:03 MB [id number]) Shoulder Goniometric Range of Motion Shoulder Left Shoulder ROM WFL No Testing Position Sitting Flexion 120 Right Shoulder ROM WFL Yes Testing Position Sitting PT-OP-M Strength Start: 06/13/23 10:44 Freq: Status: Active Protocol: Document 06/13/23 10:54 MB (Rec: 06/13/23 14:03 MB [id number]) Shoulder Strength Shoulder Manual Muscle Testing Left Flexion 4 Good Abduction (C5) 4 Good Right Flexion 4+ Good+ Abduction (C5) 4+ Good+ Hip Strength Hip Manual Muscle Testing Bilateral Flexion (L2) 4+ Good+ Knee Strength Knee Manual Muscle Testing Bilateral Flexion (S2) 4+ Good+ Extension (L3) 4+ Good+ Ankle/Foot Strength Ankle and Foot Manual Muscle Testing Bilateral Dorsiflexion (L4) 4+ Good+ PT-OP-Q Treatments Start: 06/13/23 10:44 Freq: Status: Active Protocol: Document 06/13/23 10:54 MB (Rec: 06/13/23 14:03 MB [id number]) Neuro Re-Education Treatment Balance Activities Balance testing Comments Romberg, Romberg EC and SLS all performed and see findings above 30 sec STS Comments Tried twice: once from gold soft chair with arms and pt cannot perform one rep. Second trial from BIG chair and pt can perform 5 reps in 30 sec with decreased controlled descent TUG Comments 26 sec with use of her w/c walker Self-Care/Home Management Treatment Education Other Education Ed pt and in dosage and structure of LSVT, ed in functional task hiearchy form and how to pick activities that she would like to work on with PT, ed in benefits of a small LRAD to use for gait in the home rather than the w/c walker or furniture cruising and for the benefit of gait in the clinic and they are agreeable to go to [employer] to look at ADs/DME PT-OP-T Assessment and Plan Start: 06/13/23 10:44 Freq: Status: Active Protocol: Document 06/13/23 10:54 MB (Rec: 06/13/23 11:44 MB [id number]) Physical Therapy Assessment Rehab Potential Rehabilitation Potential Fair Evaluation Complexity Number of Personal Factors/Comorbidities 1-2 Number of Body Systems Impaired 3 Clinical Presentation at Evaluation Evolving Impairments Impairments Activity Tolerance,Balance, Coordination,Functional Activities,Functional Mobility ,Gait,Posture,ROM,Strength, Transfers Goals 4 Impairment FES score is 55/69 Intermediate Goal (LTG) Pt will present with score of no more than 45/64 on Falls Efficacy Scale to decrease perception of falls and fall risk. LTG Duration 5 weeks 3 Impairment Lack of PD specific HEP Intermediate Goal (LTG) Pt will perform BIG exercises and functional activities with no more than cues from to improve amplitude of movement, balance and strength. LTG Duration 5 weeks 2 Impairment TUG in 26 sec with use of her w/c walker [employer] Goal (LTG) Pt will perform TUG in no more than 15 sec with use of LRAD to decrease fall risk. LTG Duration 5 weeks 1 Impairment 5 reps STS in 30 sec in BIG chair Intermediate Goal (LTG) Pt will perform at least 12 reps STS in BIG chair in 30 sec to improve functional balance with transfers. LTG Duration 5 weeks Assessment Summary Assessment Pt is a 72 y/o female presenting to the clinic via use of w/c and support of her , Kvng. They report she has a working diagnosis of supranuclear palsy and that she has one more dopamine uptake test and a neuro opthamologist visit that will confirm diagnosis versus corticobasilar syndrome. Pt has mild coordination changes, greater on the left, with testing. She has decreased left shoulder range and strength compared to the right . She has significant scoliosis which alters standing posture and this may affect shoulder range as well as balance. Transfers, balance and gait seem to be pt's biggest challenges during PT assessment and she also verbalizes these as her biggest challenges. Her is very supportive and appears in good health and so LSVT BIG trial to improve transfers, gait and balance in a patient with neurodegenerative disease is appropriate. Physical Therapy Plan Frequency and Duration Frequency of Treatment 4x/Week Duration of treatment (weeks) 5 Plan of Care Start Date 06/13/23 Plan of Care End Date 07/24/23 Therapeutic Interventions Therapeutic Interventions Balance Training,Canalithic Repositioning,Coordination Training,Gait Training,Home Exercise Program,Neuromuscular Re-education,Patient/ Caregiver Education,Self-Care/ Home Management,Therapeutic Activities,Therapeutic Exercises Modalities Cold Pack/Ice Massage,Hot Packs Other Referrals/Consults Referrals/Consults Recommended [facility] for home assessment per pt request Next Visit Focus/Plan Next Note Type Treatment Note Next Visit Plan Initiate BIG exercises. Funtional tasks to include buttoning, handwriting and getting in and out of the car.
--- NOTE | 2023-06-13 14:06 | PT.OPPOC ---
Physical, Occupational & Speech Therapy At [facility] Current Diagnoses Parkinsonism, unspecified (06/13/23) Other specified disorders of brain (06/13/23) Unspecified disorder of binocular movement (06/13/23) Other abnormalities of gait and mobility (06/13/23) Apraxia (06/13/23) Unspecified fall, sequela (06/13/23) Dependence on wheelchair (06/13/23) Visit Care Team Role Provider Type Soni Lucas MD Family Provider Non-Staff Primary Care Provider Specialty: Internal Medicine Address: [address] [place] [address] [address], [place], [address] Email: Beka Marx MD Attending Provider Non-Staff Referring Provider Specialty: Psychiatry Address: [address] [place] [address], [address], [place], [address] Email: Plan Of Care PT-OP-T Assessment and Plan Start: 06/13/23 10:44 Freq: Status: Active Protocol: Document 06/13/23 10:54 MB (Rec: 06/13/23 11:44 MB [id number]) Physical Therapy Assessment Rehab Potential Rehabilitation Potential Fair Evaluation Complexity Number of Personal Factors/Comorbidities 1-2 Number of Body Systems Impaired 3 Clinical Presentation at Evaluation Evolving Impairments Impairments Activity Tolerance,Balance, Coordination,Functional Activities,Functional Mobility ,Gait,Posture,ROM,Strength, Transfers Goals 4 Impairment FES score is 55/69 Senior Care Goal (LTG) Pt will present with score of no more than 45/64 on Falls Efficacy Scale to decrease perception of falls and fall risk. LTG Duration 5 weeks 3 Impairment Lack of PD specific HEP Senior Care Goal (LTG) Pt will perform BIG exercises and functional activities with no more than cues from to improve amplitude of movement, balance and strength. LTG Duration 5 weeks 2 Impairment TUG in 26 sec with use of her w/c walker Sports Psychologist Goal (LTG) Pt will perform TUG in no more than 15 sec with use of LRAD to decrease fall risk. LTG Duration 5 weeks 1 Impairment 5 reps STS in 30 sec in BIG chair Sports Psychologist Goal (LTG) Pt will perform at least 12 reps STS in BIG chair in 30 sec to improve functional balance with transfers. LTG Duration 5 weeks Assessment Summary Assessment Pt is a 72 y/o female presenting to the clinic via use of w/c and support of her , Kvng. They report she has a working diagnosis of supranuclear palsy and that she has one more dopamine uptake test and a neuro opthamologist visit that will confirm diagnosis versus corticobasilar syndrome. Pt has mild coordination changes, greater on the left, with testing. She has decreased left shoulder range and strength compared to the right . She has significant scoliosis which alters standing posture and this may affect shoulder range as well as balance. Transfers, balance and gait seem to be pt's biggest challenges during PT assessment and she also verbalizes these as her biggest challenges. Her is very supportive and appears in good health and so LSVT BIG trial to improve transfers, gait and balance in a patient with neurodegenerative disease is appropriate. Physical Therapy Plan Frequency and Duration Frequency of Treatment 4x/Week Duration of treatment (weeks) 5 Plan of Care Start Date 06/13/23 Plan of Care End Date 07/24/23 Therapeutic Interventions Therapeutic Interventions Balance Training,Canalithic Repositioning,Coordination Training,Gait Training,Home Exercise Program,Neuromuscular Re-education,Patient/ Caregiver Education,Self-Care/ Home Management,Therapeutic Activities,Therapeutic Exercises Modalities Cold Pack/Ice Massage,Hot Packs Other Referrals/Consults Referrals/Consults Recommended [facility] for home assessment per pt request Next Visit Focus/Plan Next Note Type Treatment Note Next Visit Plan Initiate BIG exercises. Funtional tasks to include buttoning, handwriting and getting in and out of the car. Plan of Care Dates Plan of Care Start Date 06/13/23 Plan of Care End Date 07/24/23 Electronically Signed by: Samina James, PT 06/13/23 4239 If you are in agreement with this Plan of Care, please return a signed and dated copy. I have reviewed this Plan of Care and certify that the skilled therapy services above are required to meet the patient?s needs. Physician Signature Date Printed Name and Credentials Clinical Instructor Signature Printed Name and Credentials
--- NOTE | 2023-06-20 13:38 | PT.OTN ---
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) Other abnormalities of gait and mobility (06/20/23) Apraxia (06/20/23) Unspecified fall, sequela (06/20/23) Dependence on wheelchair (06/20/23) Physical Therapy Treatment Note PT-OP-A Visit Information Start: 06/13/23 10:44 Freq: Status: Active Protocol: Document 06/20/23 11:18 MB (Rec: 06/20/23 13:38 MB [id number]) Out-Patient Physical Therapy Visit Information Visit Information Visit Type Treatment Note Visit Note 05/27 before progress note Visit Start Time 11:18 Visit Stop Time 12:15 Visit Number 2 Number of CALL CENTER RECRUITER Visits 0 PT-OP-B Current Condition Start: 06/13/23 10:44 Freq: Status: Active Protocol: Document 06/13/23 10:54 MB (Rec: 06/13/23 11:44 MB [id number]) Current Condition History of Current Condition Onset Date 2018 Current Complaints Weakness and unsteady walking History of Current Condition Pt, Farhana, and spouse, Donavan, arrive to the appointment and pt transported in the w/c. Pt was diagnosed with supranuclear palsy in April of 2023. Pt saw neurologist in 2019 d/t trouble with walking. She had a small tremor at the time. The movement specialist did a test with her eyes and did not see any tracking/a normal response with an eye exam and she sees neuro opthalmologist in August of 2023. Pt is a furniture walker at home. She uses transfer walker chair in the house as well as as pushes it. She uses a power chair for longer walks. She has a ramp to enter her home and they are starting to use it. She is showering I. She is standing in the shower and has does not have grab bars. She is interested in the OT who does home assessments. She is sitting to do her dressing. Pt has been doing a lot of rigorous exercises in the bed with weights. Kvng states that pt does get more challenged with fatigue. A little bit of extra stress increases the freezing. Treatment Goals Patient/Caregiver Goals To do better with her walking and to slow the progression PT-OP-C Subjective Start: 06/13/23 10:44 Freq: Status: Active Protocol: Document 06/20/23 11:18 MB (Rec: 06/20/23 13:38 MB [id number]) OP-PT Subjective Patient Comments Patient Comments Pt and , Kvng, reviewed the functional task sheet and a lot of the activities are similar. She would like to work on hand writing, buttoning, pill mobility, getting in and out of low and deep seats and would like to work on car transfer. PT-OP-D Balance Start: 06/13/23 10:44 Freq: Status: Active Protocol: Document 06/13/23 10:54 MB (Rec: 06/13/23 14:03 MB [id number]) OP-PT Balance Assessment Sitting Balance Static Sitting Balance Ability Good Dynamic Sitting Balance Ability Fair Standing Balance Static Standing Balance Ability Fair Dynamic Standing Balance Ability Poor Device Used CGA from PT or wall or w/c walker Balance Tests Other Other Balance Tests Performed Pt must use wall and requires increased time to get into Romberg and she holds position for 20 sec. LOB with Romberg with EC. 3 sec SLS on right leg and 0 sec on left leg. Pinto Fall Scale Copyright Permission PT-OP-G Mobility & Gait Start: 06/13/23 10:44 Freq: Status: Active Protocol: Document 06/13/23 10:54 MB (Rec: 06/13/23 14:03 MB [id number]) OP Gait Assessment Comments Gait Comments Pt requires CGA to gait train with her w/c walker and she requires cues to step closer to it. It is too tall for her and her states it is at that height so that he can use it to push her when it is being used as a w/c. Ed pt and in benefits of a rollator from [employer] to allow a smaller AD for gait at home and in the PT clinic and they are open to going to look for a device PT-OP-H Neuro Start: 06/13/23 10:44 Freq: Status: Active Protocol: Document 06/13/23 10:54 MB (Rec: 06/13/23 14:03 MB [id number]) Coordination Evaluation Upper Extremity Tests Left Finger to Nose Test Minimal Impairment Pronation/Supination Test Minimal Impairment Right Finger to Nose Test Minimal Impairment Pronation/Supination Test Minimal Impairment Lower Extremity Tests Left Alternate Heel to Knee; Heel to Toe Test Minimal Impairment Foot Tapping Test Moderate Impairment Right Alternate Heel to Knee; Heel to Toe Test Minimal Impairment Foot Tapping Test Minimal Impairment Vital Signs Comments Vital Signs Comments Pt denies light-headedness when getting up and so did not check orthostatics PT-OP-J Posture/Palpation/Skin Start: 06/13/23 10:44 Freq: Status: Active Protocol: Document 06/13/23 10:54 MB (Rec: 06/13/23 14:03 MB [id number]) Posture Evaluation Comments Posture Comments Severe scoliotic posture in standing with flexed posture at hips and SB and rotation to the right PT-OP-K Range of Motion Start: 06/13/23 10:44 Freq: Status: Active Protocol: Document 06/13/23 10:54 MB (Rec: 06/13/23 14:03 MB [id number]) Shoulder Goniometric Range of Motion Shoulder Left Shoulder ROM WFL No Testing Position Sitting Flexion 120 Right Shoulder ROM WFL Yes Testing Position Sitting PT-OP-M Strength Start: 06/13/23 10:44 Freq: Status: Active Protocol: Document 06/13/23 10:54 MB (Rec: 06/13/23 14:03 MB [id number]) Shoulder Strength Shoulder Manual Muscle Testing Left Flexion 4 Good Abduction (C5) 4 Good Right Flexion 4+ Good+ Abduction (C5) 4+ Good+ Hip Strength Hip Manual Muscle Testing Bilateral Flexion (L2) 4+ Good+ Knee Strength Knee Manual Muscle Testing Bilateral Flexion (S2) 4+ Good+ Extension (L3) 4+ Good+ Ankle/Foot Strength Ankle and Foot Manual Muscle Testing Bilateral Dorsiflexion (L4) 4+ Good+ PT-OP-Q Treatments Start: 06/13/23 10:44 Freq: Status: Active Protocol: Document 06/20/23 11:18 MB (Rec: 06/20/23 13:38 MB [id number]) Therapeutic Exercises Sitting Exercises Side to side Equipment Used BIG chair Reps/Minutes 5 to each side Comments Cues for form, counting, BIG movement and arm and leg movement Floor to ceiling Equipment Used BIG chair Reps/Minutes 5 Comments Cues for moving BIG, making and effort, for counting and arm movement Standing Exercises Adapted side rock and reach Equipment Used BIG chair in front Reps/Minutes 10 Comments Cues to start in start position, palm up, pivot on back toe and reach Adapted forward rock and reach Equipment Used BIG chair at side Reps/Minutes 10 Comments Cues and demo for foot stagger , BIG front toe and BIG back heel Adapted backwards step Equipment Used BIG chair at side Reps/Minutes 10 each side Comments Cues for BIG hand, BIG step back, BIG front toe, weigh shift Adapted side step Equipment Used BIG chair in front Reps/Minutes 10 each side Comments Cues to look to side as stepping to side and to step foot back Adapted forward stepping Equipment Used BIG chair at side Reps/Minutes 10 each side Comments Cues for form and especially to step fully back and to increase effort Therapeutic Activity Therapeutic Activity BIG transfer into passenger seat Comments First training to back up to seat, lock rollator, to sit back BIG and then to bring one leg in BIG and then the other leg in BIG BIG STS Reps/Minutes 5 Comments Cues to shift weight forward using arms to unweight hips and then cues for final hand position with palms forward and arms lower and at side Gait Training Gait Activity Gait training with rollator Comments Pt and got rollator from [employer]. PT raises arms 1 hole height. Ed pt in BIG stepping and stepping closer to the walker, ed pt in proper STS using rollator, backing up with it, locking it and then reaching back for the seat and cues to push up from the seat. Also practiced transfers from locked rollator with it backed against the wall. Gait inside clinic and out to car with ongoing cues to walk BIG, step close, walk younger PT-OP-T Assessment and Plan Start: 06/13/23 10:44 Freq: Status: Active Protocol: Document 06/20/23 11:18 MB (Rec: 06/20/23 13:38 MB [id number]) Physical Therapy Assessment Rehab Potential Rehabilitation Potential Fair Evaluation Complexity Number of Personal Factors/Comorbidities 1-2 Number of Body Systems Impaired 3 Clinical Presentation at Evaluation Evolving Impairments Impairments Activity Tolerance,Balance, Coordination,Functional Activities,Functional Mobility ,Gait,Posture,ROM,Strength, Transfers Goals 4 Impairment FES score is 55/69 Long-Term Goal (LTG) Pt will present with score of no more than 45/64 on Falls Efficacy Scale to decrease perception of falls and fall risk. LTG Duration 5 weeks 3 Impairment Lack of PD specific HEP Almond Pan Finisher Goal (LTG) Pt will perform BIG exercises and functional activities with no more than cues from to improve amplitude of movement, balance and strength. LTG Duration 5 weeks 2 Impairment TUG in 26 sec with use of her w/c walker Long-Term Goal (LTG) Pt will perform TUG in no more than 15 sec with use of LRAD to decrease fall risk. LTG Duration 5 weeks 1 Impairment 5 reps STS in 30 sec in BIG chair Almond Pan Finisher Goal (LTG) Pt will perform at least 12 reps STS in BIG chair in 30 sec to improve functional balance with transfers. LTG Duration 5 weeks Assessment Summary Assessment Initiated BIG exercises today and pt tends to make smaller movements and occ questionable effort vs very poor endurance . Ongoing cues to increase effort and to make movement BIG, cues to shift weight for stepping and to bring foot back. Also initiated BIG gait training with rollator today. Spouse, Kvng, is very supportive. Physical Therapy Plan Frequency and Duration Frequency of Treatment 4x/Week Duration of treatment (weeks) 5 Plan of Care Start Date 06/13/23 Plan of Care End Date 07/24/23 Therapeutic Interventions Therapeutic Interventions Balance Training,Canalithic Repositioning,Coordination Training,Gait Training,Home Exercise Program,Neuromuscular Re-education,Patient/ Caregiver Education,Self-Care/ Home Management,Therapeutic Activities,Therapeutic Exercises Modalities Cold Pack/Ice Massage,Hot Packs Other Referrals/Consults Referrals/Consults Recommended [facility] for home assessment per pt request Next Visit Focus/Plan Next Note Type Treatment Note Next Visit Plan Review adapted BIG exercises. Funtional tasks to include buttoning, handwriting, pill moving, getting in and out of low and deep seats and getting in and out of the car.
--- NOTE | 2023-06-21 11:42 | PT.OTN ---
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) Other abnormalities of gait and mobility (06/21/23) Apraxia (06/21/23) Unspecified fall, sequela (06/21/23) Dependence on wheelchair (06/21/23) Physical Therapy Treatment Note PT-OP-A Visit Information Start: 06/13/23 10:44 Freq: Status: Active Protocol: Document 06/21/23 10:34 MB (Rec: 06/21/23 11:42 MB [id number]) Out-Patient Physical Therapy Visit Information Visit Information Visit Type Treatment Note Visit Note 06/24 before progress note Visit Start Time 10:34 Visit Stop Time 11:30 Visit Number 3 Number of MARKETING OPERATIONS CONSULTANT Visits 0 PT-OP-B Current Condition Start: 06/13/23 10:44 Freq: Status: Active Protocol: Document 06/13/23 10:54 MB (Rec: 06/13/23 11:44 MB [id number]) Current Condition History of Current Condition Onset Date 2018 Current Complaints Weakness and unsteady walking History of Current Condition Pt, Farhana, and spouse, Donavan, arrive to the appointment and pt transported in the w/c. Pt was diagnosed with supranuclear palsy in April of 2023. Pt saw neurologist in 2019 d/t trouble with walking. She had a small tremor at the time. The movement specialist did a test with her eyes and did not see any tracking/a normal response with an eye exam and she sees neuro opthalmologist in August of 2023. Pt is a furniture walker at home. She uses transfer walker chair in the house as well as as pushes it. She uses a power chair for longer walks. She has a ramp to enter her home and they are starting to use it. She is showering I. She is standing in the shower and has does not have grab bars. She is interested in the OT who does home assessments. She is sitting to do her dressing. Pt has been doing a lot of rigorous exercises in the bed with weights. Kvng states that pt does get more challenged with fatigue. A little bit of extra stress increases the freezing. Treatment Goals Patient/Caregiver Goals To do better with her walking and to slow the progression PT-OP-C Subjective Start: 06/13/23 10:44 Freq: Status: Active Protocol: Document 06/21/23 10:34 MB (Rec: 06/21/23 11:42 MB [id number]) OP-PT Subjective Patient Comments Patient Comments Pt asks if the exercises have an order and she reports being tired at the end of exercises at home. They would like a video of the PT performing exercises. PT-OP-D Balance Start: 06/13/23 10:44 Freq: Status: Active Protocol: Document 06/13/23 10:54 MB (Rec: 06/13/23 14:03 MB [id number]) OP-PT Balance Assessment Sitting Balance Static Sitting Balance Ability Good Dynamic Sitting Balance Ability Fair Standing Balance Static Standing Balance Ability Fair Dynamic Standing Balance Ability Poor Device Used CGA from PT or wall or w/c walker Balance Tests Other Other Balance Tests Performed Pt must use wall and requires increased time to get into Romberg and she holds position for 20 sec. LOB with Romberg with EC. 3 sec SLS on right leg and 0 sec on left leg. Pinto Fall Scale Copyright Permission PT-OP-G Mobility & Gait Start: 06/13/23 10:44 Freq: Status: Active Protocol: Document 06/13/23 10:54 MB (Rec: 06/13/23 14:03 MB [id number]) OP Gait Assessment Comments Gait Comments Pt requires CGA to gait train with her w/c walker and she requires cues to step closer to it. It is too tall for her and her states it is at that height so that he can use it to push her when it is being used as a w/c. Ed pt and in benefits of a rollator from [employer] to allow a smaller AD for gait at home and in the PT clinic and they are open to going to look for a device PT-OP-H Neuro Start: 06/13/23 10:44 Freq: Status: Active Protocol: Document 06/13/23 10:54 MB (Rec: 06/13/23 14:03 MB [id number]) Coordination Evaluation Upper Extremity Tests Left Finger to Nose Test Minimal Impairment Pronation/Supination Test Minimal Impairment Right Finger to Nose Test Minimal Impairment Pronation/Supination Test Minimal Impairment Lower Extremity Tests Left Alternate Heel to Knee; Heel to Toe Test Minimal Impairment Foot Tapping Test Moderate Impairment Right Alternate Heel to Knee; Heel to Toe Test Minimal Impairment Foot Tapping Test Minimal Impairment Vital Signs Comments Vital Signs Comments Pt denies light-headedness when getting up and so did not check orthostatics PT-OP-J Posture/Palpation/Skin Start: 06/13/23 10:44 Freq: Status: Active Protocol: Document 06/13/23 10:54 MB (Rec: 06/13/23 14:03 MB [id number]) Posture Evaluation Comments Posture Comments Severe scoliotic posture in standing with flexed posture at hips and SB and rotation to the right PT-OP-K Range of Motion Start: 06/13/23 10:44 Freq: Status: Active Protocol: Document 06/13/23 10:54 MB (Rec: 06/13/23 14:03 MB [id number]) Shoulder Goniometric Range of Motion Shoulder Left Shoulder ROM WFL No Testing Position Sitting Flexion 120 Right Shoulder ROM WFL Yes Testing Position Sitting PT-OP-M Strength Start: 06/13/23 10:44 Freq: Status: Active Protocol: Document 06/13/23 10:54 MB (Rec: 06/13/23 14:03 MB [id number]) Shoulder Strength Shoulder Manual Muscle Testing Left Flexion 4 Good Abduction (C5) 4 Good Right Flexion 4+ Good+ Abduction (C5) 4+ Good+ Hip Strength Hip Manual Muscle Testing Bilateral Flexion (L2) 4+ Good+ Knee Strength Knee Manual Muscle Testing Bilateral Flexion (S2) 4+ Good+ Extension (L3) 4+ Good+ Ankle/Foot Strength Ankle and Foot Manual Muscle Testing Bilateral Dorsiflexion (L4) 4+ Good+ PT-OP-Q Treatments Start: 06/13/23 10:44 Freq: Status: Active Protocol: Document 06/21/23 10:34 MB (Rec: 06/21/23 11:42 MB [id number]) Therapeutic Exercises Sitting Exercises Side to side Sitting Exercise Name Trouble moving moving leg back back and forth Equipment Used BIG chair Reps/Minutes 5 to each side Comments Cues for form, counting, BIG movement and arm and leg movement Floor to ceiling Equipment Used BIG chair Reps/Minutes 5 Comments Cues for moving BIG, making and effort, for counting and arm movement Standing Exercises Adapted side rock and reach Equipment Used BIG chair in front Reps/Minutes 10 Comments Cues to pivot on the toe to get arm and spine to move, slap leg at end Adapted forward rock and reach Equipment Used BIG chair at side Reps/Minutes 10 Comments Cues for counting and better weight shift today Adapted backwards step Equipment Used BIG chair at side Reps/Minutes 10 each side Comments Cues to count Adapted side step Equipment Used BIG chair in front Reps/Minutes 10 each side Comments Cues to look to side as stepping to side and to step foot back Adapted forward stepping Standing Exercise Name Keep and eye on pt bringing her foot back Equipment Used BIG chair at side Reps/Minutes 10 each side Comments Cues for form and especially to step fully back and to increase effort Therapeutic Activity Therapeutic Activity BIG transfer into passenger seat Comments Performed this as well as STS from five varied surfaces in the gym area with use of rollator BIG STS Reps/Minutes 5 Comments Cues to count and for hand placement, PT demo Gait Training Gait Activity Gait training with rollator Comments BIG walking with cues to step bigger and closer to walker for many minutes in gym and out of clinic to car today PT-OP-T Assessment and Plan Start: 06/13/23 10:44 Freq: Status: Active Protocol: Document 06/21/23 10:34 MB (Rec: 06/21/23 11:42 MB [id number]) Physical Therapy Assessment Rehab Potential Rehabilitation Potential Fair Evaluation Complexity Number of Personal Factors/Comorbidities 1-2 Number of Body Systems Impaired 3 Clinical Presentation at Evaluation Evolving Impairments Impairments Activity Tolerance,Balance, Coordination,Functional Activities,Functional Mobility ,Gait,Posture,ROM,Strength, Transfers Goals 4 Impairment FES score is 55/69 Dispatcher Service Chief Goal (LTG) Pt will present with score of no more than 45/64 on Falls Efficacy Scale to decrease perception of falls and fall risk. LTG Duration 5 weeks 3 Impairment Lack of PD specific HEP [facility] Goal (LTG) Pt will perform BIG exercises and functional activities with no more than cues from to improve amplitude of movement, balance and strength. LTG Duration 5 weeks 2 Impairment TUG in 26 sec with use of her w/c walker Dispatcher Service Chief Goal (LTG) Pt will perform TUG in no more than 15 sec with use of LRAD to decrease fall risk. LTG Duration 5 weeks 1 Impairment 5 reps STS in 30 sec in BIG chair Dispatcher Service Chief Goal (LTG) Pt will perform at least 12 reps STS in BIG chair in 30 sec to improve functional balance with transfers. LTG Duration 5 weeks Assessment Summary Assessment Improvement with exercises today. Physical Therapy Plan Frequency and Duration Frequency of Treatment 4x/Week Duration of treatment (weeks) 5 Plan of Care Start Date 06/13/23 Plan of Care End Date 07/24/23 Therapeutic Interventions Therapeutic Interventions Balance Training,Canalithic Repositioning,Coordination Training,Gait Training,Home Exercise Program,Neuromuscular Re-education,Patient/ Caregiver Education,Self-Care/ Home Management,Therapeutic Activities,Therapeutic Exercises Modalities Cold Pack/Ice Massage,Hot Packs Other Referrals/Consults Referrals/Consults Recommended [facility] for home assessment per pt request Next Visit Focus/Plan Next Note Type Treatment Note Next Visit Plan Review adapted BIG exercises. Funtional tasks to include buttoning, handwriting, pill moving, getting in and out of low and deep seats and getting in and out of the car.
--- NOTE | 2023-06-22 12:18 | PT.OTN ---
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) Other abnormalities of gait and mobility (06/22/23) Apraxia (06/22/23) Unspecified fall, sequela (06/22/23) Dependence on wheelchair (06/22/23) Physical Therapy Treatment Note PT-OP-A Visit Information Start: 06/13/23 10:44 Freq: Status: Active Protocol: Document 06/22/23 11:18 SP (Rec: 06/22/23 12:44 SP [id number]) Out-Patient Physical Therapy Visit Information Visit Information Visit Type Treatment Note Visit Note 07/25 before progress note Visit Start Time 11:18 Visit Stop Time 1218 Visit Number 3 Number of DATA SECURITY ADMINISTRATOR Visits 1 Evaluation Information Evaluation Date 06/13/23 PT-OP-B Current Condition Start: 06/13/23 10:44 Freq: Status: Active Protocol: Document 06/13/23 10:54 MB (Rec: 06/13/23 11:44 MB [id number]) Current Condition History of Current Condition Onset Date 2018 Current Complaints Weakness and unsteady walking History of Current Condition Pt, Farhana, and spouse, Donavan, arrive to the appointment and pt transported in the w/c. Pt was diagnosed with supranuclear palsy in April of 2023. Pt saw neurologist in 2019 d/t trouble with walking. She had a small tremor at the time. The movement specialist did a test with her eyes and did not see any tracking/a normal response with an eye exam and she sees neuro opthalmologist in August of 2023. Pt is a furniture walker at home. She uses transfer walker chair in the house as well as as pushes it. She uses a power chair for longer walks. She has a ramp to enter her home and they are starting to use it. She is showering I. She is standing in the shower and has does not have grab bars. She is interested in the OT who does home assessments. She is sitting to do her dressing. Pt has been doing a lot of rigorous exercises in the bed with weights. Kvng states that pt does get more challenged with fatigue. A little bit of extra stress increases the freezing. Treatment Goals Patient/Caregiver Goals To do better with her walking and to slow the progression PT-OP-C Subjective Start: 06/13/23 10:44 Freq: Status: Active Protocol: Document 06/22/23 11:18 SP (Rec: 06/22/23 12:44 SP [id number]) OP-PT Subjective Patient Comments Patient Comments Pt reports tired after last tx and did again in pm. PT-OP-D Balance Start: 06/13/23 10:44 Freq: Status: Active Protocol: Document 06/13/23 10:54 MB (Rec: 06/13/23 14:03 MB [id number]) OP-PT Balance Assessment Sitting Balance Static Sitting Balance Ability Good Dynamic Sitting Balance Ability Fair Standing Balance Static Standing Balance Ability Fair Dynamic Standing Balance Ability Poor Device Used CGA from PT or wall or w/c walker Balance Tests Other Other Balance Tests Performed Pt must use wall and requires increased time to get into Romberg and she holds position for 20 sec. LOB with Romberg with EC. 3 sec SLS on right leg and 0 sec on left leg. Pinto Fall Scale Copyright Permission PT-OP-G Mobility & Gait Start: 06/13/23 10:44 Freq: Status: Active Protocol: Document 06/13/23 10:54 MB (Rec: 06/13/23 14:03 MB [id number]) OP Gait Assessment Comments Gait Comments Pt requires CGA to gait train with her w/c walker and she requires cues to step closer to it. It is too tall for her and her states it is at that height so that he can use it to push her when it is being used as a w/c. Ed pt and in benefits of a rollator from [employer] to allow a smaller AD for gait at home and in the PT clinic and they are open to going to look for a device PT-OP-H Neuro Start: 06/13/23 10:44 Freq: Status: Active Protocol: Document 06/13/23 10:54 MB (Rec: 06/13/23 14:03 MB [id number]) Coordination Evaluation Upper Extremity Tests Left Finger to Nose Test Minimal Impairment Pronation/Supination Test Minimal Impairment Right Finger to Nose Test Minimal Impairment Pronation/Supination Test Minimal Impairment Lower Extremity Tests Left Alternate Heel to Knee; Heel to Toe Test Minimal Impairment Foot Tapping Test Moderate Impairment Right Alternate Heel to Knee; Heel to Toe Test Minimal Impairment Foot Tapping Test Minimal Impairment Vital Signs Comments Vital Signs Comments Pt denies light-headedness when getting up and so did not check orthostatics PT-OP-J Posture/Palpation/Skin Start: 06/13/23 10:44 Freq: Status: Active Protocol: Document 06/13/23 10:54 MB (Rec: 06/13/23 14:03 MB [id number]) Posture Evaluation Comments Posture Comments Severe scoliotic posture in standing with flexed posture at hips and SB and rotation to the right PT-OP-K Range of Motion Start: 06/13/23 10:44 Freq: Status: Active Protocol: Document 06/13/23 10:54 MB (Rec: 06/13/23 14:03 MB [id number]) Shoulder Goniometric Range of Motion Shoulder Left Shoulder ROM WFL No Testing Position Sitting Flexion 120 Right Shoulder ROM WFL Yes Testing Position Sitting PT-OP-M Strength Start: 06/13/23 10:44 Freq: Status: Active Protocol: Document 06/13/23 10:54 MB (Rec: 06/13/23 14:03 MB [id number]) Shoulder Strength Shoulder Manual Muscle Testing Left Flexion 4 Good Abduction (C5) 4 Good Right Flexion 4+ Good+ Abduction (C5) 4+ Good+ Hip Strength Hip Manual Muscle Testing Bilateral Flexion (L2) 4+ Good+ Knee Strength Knee Manual Muscle Testing Bilateral Flexion (S2) 4+ Good+ Extension (L3) 4+ Good+ Ankle/Foot Strength Ankle and Foot Manual Muscle Testing Bilateral Dorsiflexion (L4) 4+ Good+ PT-OP-Q Treatments Start: 06/13/23 10:44 Freq: Status: Active Protocol: Document 06/22/23 11:18 SP (Rec: 06/22/23 12:44 SP [id number]) Therapeutic Exercises Sitting Exercises Side to side Equipment Used BIG chair Reps/Minutes 5 to each side Comments Cues for form, counting, BIG movement leg back/occ arm lift Floor to ceiling Equipment Used BIG chair Reps/Minutes x10 Comments Cues for moving BIG, making and effort, occ counting, palm up Standing Exercises Adapted side rock and reach Equipment Used BIG chair in front Reps/Minutes 10 Comments Cues to pivot on the toe, ft return, slap leg at end Adapted forward rock and reach Equipment Used BIG chair at side Reps/Minutes 10 Comments Cues for counting weight shift tall fwd/bk foot Adapted backwards step Equipment Used BIG chair at side Reps/Minutes 10 each side Comments Cues to count and arm lift back, occ toe up front Adapted side step Equipment Used BIG chair in front Reps/Minutes 10 each side Comments Cues tall look to side as stepping to side and ft step return L more thanR Adapted forward stepping Standing Exercise Name Keep and eye on pt bringing her foot back Equipment Used BIG chair at side Reps/Minutes 10 each side Comments Cues for form UE elevated, posture, slap lap return Therapeutic Activity Therapeutic Activity hand writing. Name ABCs, signature, THINK BIG MOVE BIG Reps/Minutes 5 min Comments cued full top/bottom line capital letters then lower case middle/bottom line, maintaing spacing bwtn letters . BIG transfer into passenger seat Comments Improved carryover marching step pivot turns & back step to car /c 4WW. STS from five varied surfaces in the gym area with use of rollator BIG STS Reps/Minutes 10 Comments Cues to count and for hand placement, PT demo- improve rise with reps >5 Gait Training Gait Activity Gait training with rollator Device Used 4WW Distance/Duration 340 ft total: lap 1.5 before sit rest on 4WW, then .5 lap, clinic to car Comments BIG walking with cues to step bigger R passing L, center between back wheels, closer to walker in gym/clinic to car, self corrections when questioned how can look better when 4WW to fwd. PT-OP-T Assessment and Plan Start: 06/13/23 10:44 Freq: Status: Active Protocol: Document 06/22/23 11:18 SP (Rec: 06/22/23 12:44 SP [id number]) Physical Therapy Assessment Goals 4 Impairment FES score is 55/69 Panelboard Tank Pumper Goal (LTG) Pt will present with score of no more than 45/64 on Falls Efficacy Scale to decrease perception of falls and fall risk. LTG Duration 5 weeks 3 Impairment Lack of PD specific HEP Panelboard Tank Pumper Goal (LTG) Pt will perform BIG exercises and functional activities with no more than cues from to improve amplitude of movement, balance and strength. LTG Duration 5 weeks 2 Impairment TUG in 26 sec with use of her w/c walker Shelter Goal (LTG) Pt will perform TUG in no more than 15 sec with use of LRAD to decrease fall risk. LTG Duration 5 weeks 1 Impairment 5 reps STS in 30 sec in BIG chair Shelter Goal (LTG) Pt will perform at least 12 reps STS in BIG chair in 30 sec to improve functional balance with transfers. LTG Duration 5 weeks Assessment Summary Assessment Pt improved postural / proximity /c 4WW corrections during gait during 1/2 lap of gym, before start tires needing more cuing. Improved self correcting centering gait carryover to car. Improved progress back leg side reach mobility self correction during modeling awareness. Physical Therapy Plan Frequency and Duration Frequency of Treatment 4x/Week Duration of treatment (weeks) 5 Plan of Care Start Date 06/13/23 Plan of Care End Date 07/24/23 Therapeutic Interventions Therapeutic Interventions Balance Training,Canalithic Repositioning,Coordination Training,Gait Training,Home Exercise Program,Neuromuscular Re-education,Patient/ Caregiver Education,Self-Care/ Home Management,Therapeutic Activities,Therapeutic Exercises Modalities Cold Pack/Ice Massage,Hot Packs Other Referrals/Consults Referrals/Consults Recommended [facility] for home assessment per pt request Next Visit Focus/Plan Next Note Type Treatment Note Next Visit Plan HW BIG letters & spacing/gave 2 HO. Bring button shirt next. POC: Review adapted BIG exercises. Funtional tasks to include buttoning, handwriting , pill moving, getting in and out of low and deep seats and getting in and out of the car.
--- NOTE | 2023-06-26 12:24 | PT.OTN ---
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) Other abnormalities of gait and mobility (06/26/23) Apraxia (06/26/23) Unspecified fall, sequela (06/26/23) Dependence on wheelchair (06/26/23) Physical Therapy Treatment Note PT-OP-A Visit Information Start: 06/13/23 10:44 Freq: Status: Active Protocol: Document 06/26/23 11:24 SP (Rec: 06/26/23 12:38 SP [id number]) Out-Patient Physical Therapy Visit Information Visit Information Visit Type Treatment Note Visit Note 08/24 before progress note SURVEY RESEARCH MANAGER late getting pt Visit Start Time Visit Stop Time 12: Visit Number 4 Number of SURVEY RESEARCH MANAGER Visits 2 Evaluation Information Evaluation Date 06/13/23 PT-OP-B Current Condition Start: 06/13/23 10:44 Freq: Status: Active Protocol: Document 06/13/23 10:54 MB (Rec: 06/13/23 11:44 MB [id number]) Current Condition History of Current Condition Onset Date 2018 Current Complaints Weakness and unsteady walking History of Current Condition Pt, Farhana, and spouse, Donavan, arrive to the appointment and pt transported in the w/c. Pt was diagnosed with supranuclear palsy in April of 2023. Pt saw neurologist in 2019 d/t trouble with walking. She had a small tremor at the time. The movement specialist did a test with her eyes and did not see any tracking/a normal response with an eye exam and she sees neuro opthalmologist in August of 2023. Pt is a furniture walker at home. She uses transfer walker chair in the house as well as as pushes it. She uses a power chair for longer walks. She has a ramp to enter her home and they are starting to use it. She is showering I. She is standing in the shower and has does not have grab bars. She is interested in the OT who does home assessments. She is sitting to do her dressing. Pt has been doing a lot of rigorous exercises in the bed with weights. Kvng states that pt does get more challenged with fatigue. A little bit of extra stress increases the freezing. Treatment Goals Patient/Caregiver Goals To do better with her walking and to slow the progression PT-OP-C Subjective Start: 06/13/23 10:44 Freq: Status: Active Protocol: Document 06/26/23 11:24 SP (Rec: 06/26/23 12:38 SP [id number]) OP-PT Subjective Patient Comments Patient Comments Pt reports only did exercises 1xday Sat and Sun due to little grandkids visiting. She reports alot more tired today , may need more rest breaks btn exercises. PT-OP-D Balance Start: 06/13/23 10:44 Freq: Status: Active Protocol: Document 06/13/23 10:54 MB (Rec: 06/13/23 14:03 MB [id number]) OP-PT Balance Assessment Sitting Balance Static Sitting Balance Ability Good Dynamic Sitting Balance Ability Fair Standing Balance Static Standing Balance Ability Fair Dynamic Standing Balance Ability Poor Device Used CGA from PT or wall or w/c walker Balance Tests Other Other Balance Tests Performed Pt must use wall and requires increased time to get into Romberg and she holds position for 20 sec. LOB with Romberg with EC. 3 sec SLS on right leg and 0 sec on left leg. Pinto Fall Scale Copyright Permission PT-OP-G Mobility & Gait Start: 06/13/23 10:44 Freq: Status: Active Protocol: Document 06/13/23 10:54 MB (Rec: 06/13/23 14:03 MB [id number]) OP Gait Assessment Comments Gait Comments Pt requires CGA to gait train with her w/c walker and she requires cues to step closer to it. It is too tall for her and her states it is at that height so that he can use it to push her when it is being used as a w/c. Ed pt and in benefits of a rollator from [employer] to allow a smaller AD for gait at home and in the PT clinic and they are open to going to look for a device PT-OP-H Neuro Start: 06/13/23 10:44 Freq: Status: Active Protocol: Document 06/13/23 10:54 MB (Rec: 06/13/23 14:03 MB [id number]) Coordination Evaluation Upper Extremity Tests Left Finger to Nose Test Minimal Impairment Pronation/Supination Test Minimal Impairment Right Finger to Nose Test Minimal Impairment Pronation/Supination Test Minimal Impairment Lower Extremity Tests Left Alternate Heel to Knee; Heel to Toe Test Minimal Impairment Foot Tapping Test Moderate Impairment Right Alternate Heel to Knee; Heel to Toe Test Minimal Impairment Foot Tapping Test Minimal Impairment Vital Signs Comments Vital Signs Comments Pt denies light-headedness when getting up and so did not check orthostatics PT-OP-J Posture/Palpation/Skin Start: 06/13/23 10:44 Freq: Status: Active Protocol: Document 06/13/23 10:54 MB (Rec: 06/13/23 14:03 MB [id number]) Posture Evaluation Comments Posture Comments Severe scoliotic posture in standing with flexed posture at hips and SB and rotation to the right PT-OP-K Range of Motion Start: 06/13/23 10:44 Freq: Status: Active Protocol: Document 06/13/23 10:54 MB (Rec: 06/13/23 14:03 MB [id number]) Shoulder Goniometric Range of Motion Shoulder Left Shoulder ROM WFL No Testing Position Sitting Flexion 120 Right Shoulder ROM WFL Yes Testing Position Sitting PT-OP-M Strength Start: 06/13/23 10:44 Freq: Status: Active Protocol: Document 06/13/23 10:54 MB (Rec: 06/13/23 14:03 MB [id number]) Shoulder Strength Shoulder Manual Muscle Testing Left Flexion 4 Good Abduction (C5) 4 Good Right Flexion 4+ Good+ Abduction (C5) 4+ Good+ Hip Strength Hip Manual Muscle Testing Bilateral Flexion (L2) 4+ Good+ Knee Strength Knee Manual Muscle Testing Bilateral Flexion (S2) 4+ Good+ Extension (L3) 4+ Good+ Ankle/Foot Strength Ankle and Foot Manual Muscle Testing Bilateral Dorsiflexion (L4) 4+ Good+ PT-OP-Q Treatments Start: 06/13/23 10:44 Freq: Status: Active Protocol: Document 06/26/23 11:24 SP (Rec: 06/26/23 12:38 SP [id number]) Therapeutic Exercises Sitting Exercises Side to side Equipment Used BIG chair Reps/Minutes 5 to each side Comments Cued move legs back, BIG movement leg back/occ arm lift , added flicks Floor to ceiling Equipment Used BIG chair Reps/Minutes x10 Comments Cues for moving BIG, making and effort, occ counting, palm up, added flicks Standing Exercises Adapted side rock and reach Equipment Used BIG chair in front Reps/Minutes 10 Comments Cues to pivot on the back toe, ft return, slap leg at end, Adapted forward rock and reach Equipment Used BIG chair at side Reps/Minutes 10 Comments Cues for counting weight shift tall fwd LE/bk foot heel lift Adapted backwards step Equipment Used BIG chair at side Reps/Minutes 10 each side Comments Cues to count and arm lift back, occ toe up front Adapted side step Equipment Used BIG chair in front Reps/Minutes 10 each side Comments Cues tall look to side as stepping to side, ft return, slap leg Adapted forward stepping Standing Exercise Name Keep and eye on pt bringing her foot back Equipment Used BIG chair at side Reps/Minutes 10 each side Comments Cues for form UE elevated, posture, slap lap return Therapeutic Activity Therapeutic Activity hand writing. Name ABCs, signature, THINK BIG MOVE BIG, writing check Reps/Minutes 5 min Comments Improved full top/bottom line capital letters then lower case middle/bottom line, maintaining spacing bwtn letters. BIG transfer into passenger seat Name last activity Reps/Minutes 5- between chair 06/26/23 Comments Improved june then step over step during pivot turns & back step to chair /c 4WW post modeling. Ed encourage BIG STS from every surface. Tiriing needed UE support end tx BIG STS Reps/Minutes 10 Comments Cues to count and for hand placement, PT demo- improve rise and arms BIG side with reps last 2 Gait Training Gait Activity Gait training with rollator Device Used 4WW Distance/Duration 140 ft , 1 stop rest needed Comments BIG walking with cues to step bigger R passing L, closer to walker, self corrections when questioned how can look better . PT-OP-T Assessment and Plan Start: 06/13/23 10:44 Freq: Status: Active Protocol: Document 06/26/23 11:24 SP (Rec: 06/26/23 12:38 SP [id number]) Physical Therapy Assessment Goals 4 Impairment FES score is 55/69 Clinic Director Goal (LTG) Pt will present with score of no more than 45/64 on Falls Efficacy Scale to decrease perception of falls and fall risk. LTG Duration 5 weeks 3 Impairment Lack of PD specific HEP [facility] Goal (LTG) Pt will perform BIG exercises and functional activities with no more than cues from to improve amplitude of movement, balance and strength. LTG Duration 5 weeks 2 Impairment TUG in 26 sec with use of her w/c walker Clinic Director Goal (LTG) Pt will perform TUG in no more than 15 sec with use of LRAD to decrease fall risk. LTG Duration 5 weeks 1 Impairment 5 reps STS in 30 sec in BIG chair Clinic Director Goal (LTG) Pt will perform at least 12 reps STS in BIG chair in 30 sec to improve functional balance with transfers. LTG Duration 5 weeks Assessment Summary Assessment Pt tired quicker today, required seated rests between standing exercises and 3/4 lap around clinic on 4WW. Requires lessening of cues for proximity to 4WW and maintaining R step pass L by 50%. Provided crane element note card on 4WW for BIG step over step, closer, march step backing up to sit with noted improved only 1 small decrease clearance and no freezing with BIG transfer reps. Pt improved hand and arm positioning with added flicks during seated exercises today. BIG flowing letters with significant improvement in spacing and writing almost no shakiness this tx. Physical Therapy Plan Frequency and Duration Frequency of Treatment 4x/Week Duration of treatment (weeks) 5 Plan of Care Start Date 06/13/23 Plan of Care End Date 07/24/23 Therapeutic Interventions Therapeutic Interventions Balance Training,Canalithic Repositioning,Coordination Training,Gait Training,Home Exercise Program,Neuromuscular Re-education,Patient/ Caregiver Education,Self-Care/ Home Management,Therapeutic Activities,Therapeutic Exercises Modalities Cold Pack/Ice Massage,Hot Packs Other Referrals/Consults Referrals/Consults Recommended [facility] for home assessment per pt request Next Visit Focus/Plan Next Note Type Treatment Note Next Visit Plan HW BIG letters & flow BIG stepping during transfers. Start button shirt next. POC: Review adapted BIG exercises. Funtional tasks to include buttoning, handwriting , pill moving, getting in and out of low and deep seats and getting in and out of the car.
--- NOTE | 2023-06-27 12:38 | PT.OTN ---
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) Other abnormalities of gait and mobility (06/27/23) Apraxia (06/27/23) Unspecified fall, sequela (06/27/23) Dependence on wheelchair (06/27/23) Physical Therapy Treatment Note PT-OP-A Visit Information Start: 06/13/23 10:44 Freq: Status: Active Protocol: Document 06/27/23 11:16 MB (Rec: 06/27/23 12:37 MB [id number]) Out-Patient Physical Therapy Visit Information Visit Information Visit Type Treatment Note Visit Note 09/24 before progress note Visit Start Time 11:16 Visit Stop Time 12:15 Visit Number 5 Number of JUTE BAG CUTTING MACHINE OPERATOR Visits 0 PT-OP-B Current Condition Start: 06/13/23 10:44 Freq: Status: Active Protocol: Document 06/13/23 10:54 MB (Rec: 06/13/23 11:44 MB [id number]) Current Condition History of Current Condition Onset Date 2018 Current Complaints Weakness and unsteady walking History of Current Condition Pt, Farhana, and spouse, Donavan, arrive to the appointment and pt transported in the w/c. Pt was diagnosed with supranuclear palsy in April of 2023. Pt saw neurologist in 2019 d/t trouble with walking. She had a small tremor at the time. The movement specialist did a test with her eyes and did not see any tracking/a normal response with an eye exam and she sees neuro opthalmologist in August of 2023. Pt is a furniture walker at home. She uses transfer walker chair in the house as well as as pushes it. She uses a power chair for longer walks. She has a ramp to enter her home and they are starting to use it. She is showering I. She is standing in the shower and has does not have grab bars. She is interested in the OT who does home assessments. She is sitting to do her dressing. Pt has been doing a lot of rigorous exercises in the bed with weights. Kvng states that pt does get more challenged with fatigue. A little bit of extra stress increases the freezing. Treatment Goals Patient/Caregiver Goals To do better with her walking and to slow the progression PT-OP-C Subjective Start: 06/13/23 10:44 Freq: Status: Active Protocol: Document 06/27/23 11:16 MB (Rec: 06/27/23 12:37 MB [id number]) OP-PT Subjective Patient Comments Patient Comments Pt is feeling better today compared to yesterday. She is doing exercises twice a day except for the weekend when the grandkids were visiting. She reports that it is possible that she has multi- system atrophy rather than supranuclear palsy. PT-OP-D Balance Start: 06/13/23 10:44 Freq: Status: Active Protocol: Document 06/13/23 10:54 MB (Rec: 06/13/23 14:03 MB [id number]) OP-PT Balance Assessment Sitting Balance Static Sitting Balance Ability Good Dynamic Sitting Balance Ability Fair Standing Balance Static Standing Balance Ability Fair Dynamic Standing Balance Ability Poor Device Used CGA from PT or wall or w/c walker Balance Tests Other Other Balance Tests Performed Pt must use wall and requires increased time to get into Romberg and she holds position for 20 sec. LOB with Romberg with EC. 3 sec SLS on right leg and 0 sec on left leg. Pinto Fall Scale Copyright Permission PT-OP-G Mobility & Gait Start: 06/13/23 10:44 Freq: Status: Active Protocol: Document 06/13/23 10:54 MB (Rec: 06/13/23 14:03 MB [id number]) OP Gait Assessment Comments Gait Comments Pt requires CGA to gait train with her w/c walker and she requires cues to step closer to it. It is too tall for her and her states it is at that height so that he can use it to push her when it is being used as a w/c. Ed pt and in benefits of a rollator from [employer] to allow a smaller AD for gait at home and in the PT clinic and they are open to going to look for a device PT-OP-H Neuro Start: 06/13/23 10:44 Freq: Status: Active Protocol: Document 06/13/23 10:54 MB (Rec: 06/13/23 14:03 MB [id number]) Coordination Evaluation Upper Extremity Tests Left Finger to Nose Test Minimal Impairment Pronation/Supination Test Minimal Impairment Right Finger to Nose Test Minimal Impairment Pronation/Supination Test Minimal Impairment Lower Extremity Tests Left Alternate Heel to Knee; Heel to Toe Test Minimal Impairment Foot Tapping Test Moderate Impairment Right Alternate Heel to Knee; Heel to Toe Test Minimal Impairment Foot Tapping Test Minimal Impairment Vital Signs Comments Vital Signs Comments Pt denies light-headedness when getting up and so did not check orthostatics PT-OP-J Posture/Palpation/Skin Start: 06/13/23 10:44 Freq: Status: Active Protocol: Document 06/13/23 10:54 MB (Rec: 06/13/23 14:03 MB [id number]) Posture Evaluation Comments Posture Comments Severe scoliotic posture in standing with flexed posture at hips and SB and rotation to the right PT-OP-K Range of Motion Start: 06/13/23 10:44 Freq: Status: Active Protocol: Document 06/13/23 10:54 MB (Rec: 06/13/23 14:03 MB [id number]) Shoulder Goniometric Range of Motion Shoulder Left Shoulder ROM WFL No Testing Position Sitting Flexion 120 Right Shoulder ROM WFL Yes Testing Position Sitting PT-OP-M Strength Start: 06/13/23 10:44 Freq: Status: Active Protocol: Document 06/13/23 10:54 MB (Rec: 06/13/23 14:03 MB [id number]) Shoulder Strength Shoulder Manual Muscle Testing Left Flexion 4 Good Abduction (C5) 4 Good Right Flexion 4+ Good+ Abduction (C5) 4+ Good+ Hip Strength Hip Manual Muscle Testing Bilateral Flexion (L2) 4+ Good+ Knee Strength Knee Manual Muscle Testing Bilateral Flexion (S2) 4+ Good+ Extension (L3) 4+ Good+ Ankle/Foot Strength Ankle and Foot Manual Muscle Testing Bilateral Dorsiflexion (L4) 4+ Good+ PT-OP-Q Treatments Start: 06/13/23 10:44 Freq: Status: Active Protocol: Document 06/27/23 11:16 MB (Rec: 06/27/23 12:37 MB [id number]) Therapeutic Exercises Sitting Exercises Side to side Equipment Used BIG chair Reps/Minutes 5 to each side Comments Cues for hand position and flicks Floor to ceiling Equipment Used BIG chair Reps/Minutes 5 reps Comments Cues for hand position and flicks Standing Exercises Adapted side rock and reach Equipment Used BIG chair behind Reps/Minutes 10 Comments Cues for pivot Adapted forward rock and reach Equipment Used BIG chair at side Reps/Minutes 10 Comments Better performanc Adapted backwards step Equipment Used BIG chair at side Reps/Minutes 10 each side Comments Cues for big front toe Adapted side step Equipment Used BIG chair in front Reps/Minutes 10 each side Comments Cues to bring foot back Adapted forward stepping Equipment Used BIG chair at side Reps/Minutes 10 each side Comments Cues to bring foot all the way back Therapeutic Activity Therapeutic Activity BIG buttoning Comments Pt standing in front of chair and buttoning dress shirt don and button first rep 1:39; unbutton and take off: right arm sleeve caught on watch: 59 sec; 2nd don and button cues to put right arm in first 1:26 ; 2nd doff and button: 37 sec: pt fatigues with the standing and does a good effort. Final don and button: timer did not start, good movement; doff and unbutton: 29 sec BIG transfer into passenger seat Comments Cues to step big back with rollator, to sit back big, to move leg into car big BIG STS Reps/Minutes 10 Comments Pt occ tends to plop in the chair and she readjusts feet position Gait Training Gait Activity Gait training with rollator Comments Pt gait trains with rollator in clinic and outside to car and cues to step closer to the walker, to keep stepping through and stepping BIG PT-OP-T Assessment and Plan Start: 06/13/23 10:44 Freq: Status: Active Protocol: Document 06/27/23 11:16 MB (Rec: 06/27/23 12:37 MB [id number]) Physical Therapy Assessment Rehab Potential Rehabilitation Potential Fair Evaluation Complexity Number of Personal Factors/Comorbidities 1-2 Number of Body Systems Impaired 3 Clinical Presentation at Evaluation Evolving Impairments Impairments Activity Tolerance,Balance, Coordination,Functional Activities,Functional Mobility ,Gait,Posture,ROM,Strength, Transfers Goals 4 Impairment FES score is 55/69 [place] Burner Operator Goal (LTG) Pt will present with score of no more than 45/64 on Falls Efficacy Scale to decrease perception of falls and fall risk. LTG Duration 5 weeks 3 Impairment Lack of PD specific HEP Fpc Goal (LTG) Pt will perform BIG exercises and functional activities with no more than cues from to improve amplitude of movement, balance and strength. LTG Duration 5 weeks 2 Impairment TUG in 26 sec with use of her w/c walker [place] Burner Operator Goal (LTG) Pt will perform TUG in no more than 15 sec with use of LRAD to decrease fall risk. LTG Duration 5 weeks 1 Impairment 5 reps STS in 30 sec in BIG chair [place] Burner Operator Goal (LTG) Pt will perform at least 12 reps STS in BIG chair in 30 sec to improve functional balance with transfers. LTG Duration 5 weeks Assessment Summary Assessment Pt is slowly progressing with BIG exercises and con't to require sitting rest breaks with exercises and gait. Initiated buttoning today and pt performs in standing. Physical Therapy Plan Frequency and Duration Frequency of Treatment 4x/Week Duration of treatment (weeks) 5 Plan of Care Start Date 06/13/23 Plan of Care End Date 07/24/23 Therapeutic Interventions Therapeutic Interventions Balance Training,Canalithic Repositioning,Coordination Training,Gait Training,Home Exercise Program,Neuromuscular Re-education,Patient/ Caregiver Education,Self-Care/ Home Management,Therapeutic Activities,Therapeutic Exercises Modalities Cold Pack/Ice Massage,Hot Packs Next Visit Focus/Plan Next Note Type Treatment Note Next Visit Plan Encourage pt to add buttoning and handwriting into HEP for therapeutic activity Review adapted BIG exercises. Funtional tasks to include buttoning, handwriting, getting in and out of low and deep seats and getting in and out of the car.
--- NOTE | 2023-06-28 11:27 | PT.OTN ---
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) Other abnormalities of gait and mobility (06/28/23) Apraxia (06/28/23) Unspecified fall, sequela (06/28/23) Dependence on wheelchair (06/28/23) Physical Therapy Treatment Note PT-OP-A Visit Information Start: 06/13/23 10:44 Freq: Status: Active Protocol: Document 06/28/23 10:30 MB (Rec: 06/28/23 11:27 MB [id number]) Out-Patient Physical Therapy Visit Information Visit Information Visit Type Treatment Note Visit Note 10/24 before progress note Visit Start Time 10:30 Visit Stop Time 11:23 Visit Number 6 Number of POWER ORIGINATOR Visits 0 PT-OP-B Current Condition Start: 06/13/23 10:44 Freq: Status: Active Protocol: Document 06/13/23 10:54 MB (Rec: 06/13/23 11:44 MB [id number]) Current Condition History of Current Condition Onset Date 2018 Current Complaints Weakness and unsteady walking History of Current Condition Pt, Farhana, and spouse, Donavan, arrive to the appointment and pt transported in the w/c. Pt was diagnosed with supranuclear palsy in April of 2023. Pt saw neurologist in 2019 d/t trouble with walking. She had a small tremor at the time. The movement specialist did a test with her eyes and did not see any tracking/a normal response with an eye exam and she sees neuro opthalmologist in August of 2023. Pt is a furniture walker at home. She uses transfer walker chair in the house as well as as pushes it. She uses a power chair for longer walks. She has a ramp to enter her home and they are starting to use it. She is showering I. She is standing in the shower and has does not have grab bars. She is interested in the OT who does home assessments. She is sitting to do her dressing. Pt has been doing a lot of rigorous exercises in the bed with weights. Kvng states that pt does get more challenged with fatigue. A little bit of extra stress increases the freezing. Treatment Goals Patient/Caregiver Goals To do better with her walking and to slow the progression PT-OP-C Subjective Start: 06/13/23 10:44 Freq: Status: Active Protocol: Document 06/28/23 10:30 MB (Rec: 06/28/23 11:27 MB [id number]) OP-PT Subjective Patient Comments Patient Comments Pt had a cold nail her last night. She arrives in N-95 and states she will do what she can. PT-OP-D Balance Start: 06/13/23 10:44 Freq: Status: Active Protocol: Document 06/13/23 10:54 MB (Rec: 06/13/23 14:03 MB [id number]) OP-PT Balance Assessment Sitting Balance Static Sitting Balance Ability Good Dynamic Sitting Balance Ability Fair Standing Balance Static Standing Balance Ability Fair Dynamic Standing Balance Ability Poor Device Used CGA from PT or wall or w/c walker Balance Tests Other Other Balance Tests Performed Pt must use wall and requires increased time to get into Romberg and she holds position for 20 sec. LOB with Romberg with EC. 3 sec SLS on right leg and 0 sec on left leg. Pinto Fall Scale Copyright Permission PT-OP-G Mobility & Gait Start: 06/13/23 10:44 Freq: Status: Active Protocol: Document 06/13/23 10:54 MB (Rec: 06/13/23 14:03 MB [id number]) OP Gait Assessment Comments Gait Comments Pt requires CGA to gait train with her w/c walker and she requires cues to step closer to it. It is too tall for her and her states it is at that height so that he can use it to push her when it is being used as a w/c. Ed pt and in benefits of a rollator from [employer] to allow a smaller AD for gait at home and in the PT clinic and they are open to going to look for a device PT-OP-H Neuro Start: 06/13/23 10:44 Freq: Status: Active Protocol: Document 06/13/23 10:54 MB (Rec: 06/13/23 14:03 MB [id number]) Coordination Evaluation Upper Extremity Tests Left Finger to Nose Test Minimal Impairment Pronation/Supination Test Minimal Impairment Right Finger to Nose Test Minimal Impairment Pronation/Supination Test Minimal Impairment Lower Extremity Tests Left Alternate Heel to Knee; Heel to Toe Test Minimal Impairment Foot Tapping Test Moderate Impairment Right Alternate Heel to Knee; Heel to Toe Test Minimal Impairment Foot Tapping Test Minimal Impairment Vital Signs Comments Vital Signs Comments Pt denies light-headedness when getting up and so did not check orthostatics PT-OP-J Posture/Palpation/Skin Start: 06/13/23 10:44 Freq: Status: Active Protocol: Document 06/13/23 10:54 MB (Rec: 06/13/23 14:03 MB [id number]) Posture Evaluation Comments Posture Comments Severe scoliotic posture in standing with flexed posture at hips and SB and rotation to the right PT-OP-K Range of Motion Start: 06/13/23 10:44 Freq: Status: Active Protocol: Document 06/13/23 10:54 MB (Rec: 06/13/23 14:03 MB [id number]) Shoulder Goniometric Range of Motion Shoulder Left Shoulder ROM WFL No Testing Position Sitting Flexion 120 Right Shoulder ROM WFL Yes Testing Position Sitting PT-OP-M Strength Start: 06/13/23 10:44 Freq: Status: Active Protocol: Document 06/13/23 10:54 MB (Rec: 06/13/23 14:03 MB [id number]) Shoulder Strength Shoulder Manual Muscle Testing Left Flexion 4 Good Abduction (C5) 4 Good Right Flexion 4+ Good+ Abduction (C5) 4+ Good+ Hip Strength Hip Manual Muscle Testing Bilateral Flexion (L2) 4+ Good+ Knee Strength Knee Manual Muscle Testing Bilateral Flexion (S2) 4+ Good+ Extension (L3) 4+ Good+ Ankle/Foot Strength Ankle and Foot Manual Muscle Testing Bilateral Dorsiflexion (L4) 4+ Good+ PT-OP-Q Treatments Start: 06/13/23 10:44 Freq: Status: Active Protocol: Document 06/28/23 10:30 MB (Rec: 06/28/23 11:27 MB [id number]) Therapeutic Activity Therapeutic Activity BIG buttoning Comments Pt standing in front of chair: don and button: 2:43; doff and unbutton: 36 sec. Sitting break. 2nd rep: pt misses a button and has to start again: 3:48; doff and unbutton: 41 sec. Pt with WEISS with N-95 on today hand writing. Name ABCs, signature, THINK BIG MOVE BIG, writing check Reps/Minutes 15' Comments Improved full top/bottom line capital letters then lower case middle/bottom line, maintaining spacing bwtn letters. BIG transfer into passenger seat Comments Pt has trouble staying close to the rollator today and cues to step BIG, stay close and take BIG steps back BIG STS Reps/Minutes 5x1, then 1 more rep Comments Pt tends to move arms up rather than forward to weight shift weight off hips Gait Training Gait Activity Gait training with rollator Comments Gait training in clinic, clinic hallway, and outside to car. Pt with more festinating gait today and staying further from walker and cues to try to correct with BIG walking and stepping up and close to rollator PT-OP-T Assessment and Plan Start: 06/13/23 10:44 Freq: Status: Active Protocol: Document 06/28/23 10:30 MB (Rec: 06/28/23 11:27 MB [id number]) Physical Therapy Assessment Rehab Potential Rehabilitation Potential Fair Evaluation Complexity Number of Personal Factors/Comorbidities 1-2 Number of Body Systems Impaired 3 Clinical Presentation at Evaluation Evolving Impairments Impairments Activity Tolerance,Balance, Coordination,Functional Activities,Functional Mobility ,Gait,Posture,ROM,Strength, Transfers Goals 4 Impairment FES score is 55/69 Appeals Rn Goal (LTG) Pt will present with score of no more than 45/64 on Falls Efficacy Scale to decrease perception of falls and fall risk. LTG Duration 5 weeks 3 Impairment Lack of PD specific HEP Appeals Rn Goal (LTG) Pt will perform BIG exercises and functional activities with no more than cues from to improve amplitude of movement, balance and strength. LTG Duration 5 weeks 2 Impairment TUG in 26 sec with use of her w/c walker Appeals Rn Goal (LTG) Pt will perform TUG in no more than 15 sec with use of LRAD to decrease fall risk. LTG Duration 5 weeks 1 Impairment 5 reps STS in 30 sec in BIG chair Appeals Rn Goal (LTG) Pt will perform at least 12 reps STS in BIG chair in 30 sec to improve functional balance with transfers. LTG Duration 5 weeks Assessment Summary Assessment Pt with a cold today and she wears a N-95 to treatment. She states she doesn't think she can work on exercises and treatment is also ended a little early. Therapeutic activities take a long time today d/t pt fatigue and rest breaks d/t cold symptoms and WEISS with N-95. Good effort when not feeling well. Physical Therapy Plan Frequency and Duration Frequency of Treatment 4x/Week Duration of treatment (weeks) 5 Plan of Care Start Date 06/13/23 Plan of Care End Date 07/24/23 Therapeutic Interventions Therapeutic Interventions Balance Training,Canalithic Repositioning,Coordination Training,Gait Training,Home Exercise Program,Neuromuscular Re-education,Patient/ Caregiver Education,Self-Care/ Home Management,Therapeutic Activities,Therapeutic Exercises Modalities Cold Pack/Ice Massage,Hot Packs Next Visit Focus/Plan Next Note Type Treatment Note Next Visit Plan Review adapted BIG exercises. Funtional tasks include buttoning, handwriting, getting in and out of low and deep seats and getting in and out of the car.
--- NOTE | 2023-06-29 12:24 | PT.OTN ---
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) Other abnormalities of gait and mobility (06/29/23) Apraxia (06/29/23) Unspecified fall, sequela (06/29/23) Dependence on wheelchair (06/29/23) Physical Therapy Treatment Note PT-OP-A Visit Information Start: 06/13/23 10:44 Freq: Status: Active Protocol: Document 06/29/23 11:24 SP (Rec: 06/29/23 12:44 SP [id number]) Out-Patient Physical Therapy Visit Information Visit Information Visit Type Treatment Note Visit Note 11/24 before progress note Visit Start Time 11:24 Visit Stop Time 12: Visit Number 6 Number of LIVING MANAGER Visits 1 PT-OP-B Current Condition Start: 06/13/23 10:44 Freq: Status: Active Protocol: Document 06/13/23 10:54 MB (Rec: 06/13/23 11:44 MB [id number]) Current Condition History of Current Condition Onset Date 2018 Current Complaints Weakness and unsteady walking History of Current Condition Pt, Farhana, and spouse, Donavan, arrive to the appointment and pt transported in the w/c. Pt was diagnosed with supranuclear palsy in April of 2023. Pt saw neurologist in 2019 d/t trouble with walking. She had a small tremor at the time. The movement specialist did a test with her eyes and did not see any tracking/a normal response with an eye exam and she sees neuro opthalmologist in August of 2023. Pt is a furniture walker at home. She uses transfer walker chair in the house as well as as pushes it. She uses a power chair for longer walks. She has a ramp to enter her home and they are starting to use it. She is showering I. She is standing in the shower and has does not have grab bars. She is interested in the OT who does home assessments. She is sitting to do her dressing. Pt has been doing a lot of rigorous exercises in the bed with weights. Kvng states that pt does get more challenged with fatigue. A little bit of extra stress increases the freezing. Treatment Goals Patient/Caregiver Goals To do better with her walking and to slow the progression PT-OP-C Subjective Start: 06/13/23 10:44 Freq: Status: Active Protocol: Document 06/29/23 11:24 SP (Rec: 06/29/23 12:44 SP [id number]) OP-PT Subjective Patient Comments Patient Comments Pt as a cold N95 mask donned, need rests decrease endurance, couldnt' walk at all last night, able come to stand but froze and unable to move. Nervous diddn't know how to get her into another chair and use bathroom nervous no handles at the moment. PT-OP-D Balance Start: 06/13/23 10:44 Freq: Status: Active Protocol: Document 06/13/23 10:54 MB (Rec: 06/13/23 14:03 MB [id number]) OP-PT Balance Assessment Sitting Balance Static Sitting Balance Ability Good Dynamic Sitting Balance Ability Fair Standing Balance Static Standing Balance Ability Fair Dynamic Standing Balance Ability Poor Device Used CGA from PT or wall or w/c walker Balance Tests Other Other Balance Tests Performed Pt must use wall and requires increased time to get into Romberg and she holds position for 20 sec. LOB with Romberg with EC. 3 sec SLS on right leg and 0 sec on left leg. Pinto Fall Scale Copyright Permission PT-OP-G Mobility & Gait Start: 06/13/23 10:44 Freq: Status: Active Protocol: Document 06/13/23 10:54 MB (Rec: 06/13/23 14:03 MB [id number]) OP Gait Assessment Comments Gait Comments Pt requires CGA to gait train with her w/c walker and she requires cues to step closer to it. It is too tall for her and her states it is at that height so that he can use it to push her when it is being used as a w/c. Ed pt and in benefits of a rollator from [employer] to allow a smaller AD for gait at home and in the PT clinic and they are open to going to look for a device PT-OP-H Neuro Start: 06/13/23 10:44 Freq: Status: Active Protocol: Document 06/13/23 10:54 MB (Rec: 06/13/23 14:03 MB [id number]) Coordination Evaluation Upper Extremity Tests Left Finger to Nose Test Minimal Impairment Pronation/Supination Test Minimal Impairment Right Finger to Nose Test Minimal Impairment Pronation/Supination Test Minimal Impairment Lower Extremity Tests Left Alternate Heel to Knee; Heel to Toe Test Minimal Impairment Foot Tapping Test Moderate Impairment Right Alternate Heel to Knee; Heel to Toe Test Minimal Impairment Foot Tapping Test Minimal Impairment Vital Signs Comments Vital Signs Comments Pt denies light-headedness when getting up and so did not check orthostatics PT-OP-J Posture/Palpation/Skin Start: 06/13/23 10:44 Freq: Status: Active Protocol: Document 06/13/23 10:54 MB (Rec: 06/13/23 14:03 MB [id number]) Posture Evaluation Comments Posture Comments Severe scoliotic posture in standing with flexed posture at hips and SB and rotation to the right PT-OP-K Range of Motion Start: 06/13/23 10:44 Freq: Status: Active Protocol: Document 06/13/23 10:54 MB (Rec: 06/13/23 14:03 MB [id number]) Shoulder Goniometric Range of Motion Shoulder Left Shoulder ROM WFL No Testing Position Sitting Flexion 120 Right Shoulder ROM WFL Yes Testing Position Sitting PT-OP-M Strength Start: 06/13/23 10:44 Freq: Status: Active Protocol: Document 06/13/23 10:54 MB (Rec: 06/13/23 14:03 MB [id number]) Shoulder Strength Shoulder Manual Muscle Testing Left Flexion 4 Good Abduction (C5) 4 Good Right Flexion 4+ Good+ Abduction (C5) 4+ Good+ Hip Strength Hip Manual Muscle Testing Bilateral Flexion (L2) 4+ Good+ Knee Strength Knee Manual Muscle Testing Bilateral Flexion (S2) 4+ Good+ Extension (L3) 4+ Good+ Ankle/Foot Strength Ankle and Foot Manual Muscle Testing Bilateral Dorsiflexion (L4) 4+ Good+ PT-OP-Q Treatments Start: 06/13/23 10:44 Freq: Status: Active Protocol: Document 06/29/23 11:24 SP (Rec: 06/29/23 12:44 SP [id number]) Therapeutic Exercises Sitting Exercises Side to side Equipment Used BIG chair Reps/Minutes 5 to each side Comments Cues for hand position /c flicks, side turn, leg back in - impr RLE back ROM Floor to ceiling Equipment Used BIG chair Reps/Minutes 5 reps Comments Cues for hand position and flicks, feedback model arm up/ out Standing Exercises Adapted side rock and reach Equipment Used BIG chair behind Reps/Minutes 10 Comments Cues for pivot on back ft, impr L trunk turn >R, model arm up L>R Adapted forward rock and reach Equipment Used BIG chair at side Reps/Minutes 10 Comments Better performance BIG arms swing, 4>7 scale Adapted backwards step Equipment Used BIG chair at side Reps/Minutes 10 each side Comments Cues for big front toe Adapted side step Equipment Used BIG chair in front Reps/Minutes 10 each side Comments Cues to bring foot back //, hand to lap, added 1 flick out Adapted forward stepping Equipment Used BIG chair at side Reps/Minutes 10 each side Comments Cues to bring foot all the way back Therapeutic Activity Therapeutic Activity safety transfers squat pivot Name CGA and pt trng Reps/Minutes 5min Comments ed chairs close 45 deg, close ft fwd toward chair, 1 UE on chair arm sitting in and other opp far arm rest, use gait belt on pt /c his good squat body mechanics, support pt wt shift her 1 surface to another through gait belt support. That does fellt more supportive vs holding her hands when can't come to stand . LIVING MANAGER ed use of 4WW brake for WB on, wt shift and marching step before move, use gait belt from side to assist wt shift and potential facilitatae stepping. Also carryover bathroom and acquiirng BSC for support bathroom if needed ( [employer]). SUggested installing grab bars for safety. BIG buttoning Name challenge base long sleeve shirt catching don shirt sleeve & behind back Comments Pt sitting front of chair: don and button: 1:40 (40 sec don) ; unbutton and doff: 1:33, brief rest sit. 2nd rep: start again don (38sec)/button : 1: 30; unbutton (24sec)/doff: 53sec 3rd rep: don/button 1:37, unbutton/doff 37sec Pt with WEISS with N-95 on today BIG transfer into passenger seat Comments Pt has trouble staying close to the rollator today and cues to step BIG, stay close and take BIG steps back, big step in/out/back in for better performance. BIG STS Reps/Minutes 10 Comments Modeled arms fwd coming stand then side, improved with reps Gait Training Gait Activity Gait training with rollator Comments Gait training in clinic, clinic hallway, and outside to car. Pt with more festinating gait 40% time today and staying further from walker demetri over royce transition and turns, cues stop reset to try to correct with BIG walking and stepping up and close to rollator step over step PT-OP-T Assessment and Plan Start: 06/13/23 10:44 Freq: Status: Active Protocol: Document 06/29/23 11:24 SP (Rec: 06/29/23 12:44 SP [id number]) Physical Therapy Assessment Goals 4 Impairment FES score is 55/69 Group Home Goal (LTG) Pt will present with score of no more than 45/64 on Falls Efficacy Scale to decrease perception of falls and fall risk. LTG Duration 5 weeks 3 Impairment Lack of PD specific HEP Group Home Goal (LTG) Pt will perform BIG exercises and functional activities with no more than cues from to improve amplitude of movement, balance and strength. LTG Duration 5 weeks 2 Impairment TUG in 26 sec with use of her w/c walker Group Home Goal (LTG) Pt will perform TUG in no more than 15 sec with use of LRAD to decrease fall risk. LTG Duration 5 weeks 1 Impairment 5 reps STS in 30 sec in BIG chair Group Home Goal (LTG) Pt will perform at least 12 reps STS in BIG chair in 30 sec to improve functional balance with transfers. LTG Duration 5 weeks Assessment Summary Assessment Pt Continues need rest break between each side exercises due to low endurance, challenge breath /c N95 mask donned. Cues for arm and hand flick positioning. Time spent safety education on spouse proper mechanics, set up and sequencing pt during squat pivot transfer /c use GB for times freeze, unstead in standing to take steps. Pt and felt more confident on safety and increase I with strategies needed at that moment. Still requries Mod cueing for proximity and step over step stride over surfaces and turns . Improved BIG LEs in/out car with ed shaping and self feel bigger post performance. Physical Therapy Plan Frequency and Duration Frequency of Treatment 4x/Week Duration of treatment (weeks) 5 Plan of Care Start Date 06/13/23 Plan of Care End Date 07/24/23 Therapeutic Interventions Therapeutic Interventions Balance Training,Canalithic Repositioning,Coordination Training,Gait Training,Home Exercise Program,Neuromuscular Re-education,Patient/ Caregiver Education,Self-Care/ Home Management,Therapeutic Activities,Therapeutic Exercises Modalities Cold Pack/Ice Massage,Hot Packs Other Referrals/Consults Referrals/Consults Recommended [facility] for home assessment per pt request Next Visit Focus/Plan Next Note Type Treatment Note Next Visit Plan HW: BIG LEs in/out car. CHeck in safety strategies transfers . Review adapted BIG exercises. Funtional tasks include buttoning, handwriting, getting in and out of low and deep seats and getting in and out of the car.
--- NOTE | 2023-07-03 12:17 | PT.OTN ---
Current Diagnoses Parkinsonism, unspecified (07/03/23) Other specified disorders of brain (07/03/23) Unspecified disorder of binocular movement (07/03/23) Other abnormalities of gait and mobility (07/03/23) Apraxia (07/03/23) Unspecified fall, sequela (07/03/23) Dependence on wheelchair (07/03/23) Physical Therapy Treatment Note PT-OP-A Visit Information Start: 06/13/23 10:44 Freq: Status: Active Protocol: Document 07/03/23 11:17 SP (Rec: 07/03/23 12:32 SP [id number]) Out-Patient Physical Therapy Visit Information Visit Information Visit Type Treatment Note Visit Note 12/25 before progress note Visit Start Time 11:17 Visit Stop Time 12:17 Visit Number 8 Number of SOAP CHIPPER Visits 2 Evaluation Information Evaluation Date 06/13/23 PT-OP-B Current Condition Start: 06/13/23 10:44 Freq: Status: Active Protocol: Document 06/13/23 10:54 MB (Rec: 06/13/23 11:44 MB [id number]) Current Condition History of Current Condition Onset Date 2018 Current Complaints Weakness and unsteady walking History of Current Condition Pt, Farhana, and spouse, Donavan, arrive to the appointment and pt transported in the w/c. Pt was diagnosed with supranuclear palsy in April of 2023. Pt saw neurologist in 2019 d/t trouble with walking. She had a small tremor at the time. The movement specialist did a test with her eyes and did not see any tracking/a normal response with an eye exam and she sees neuro opthalmologist in August of 2023. Pt is a furniture walker at home. She uses transfer walker chair in the house as well as as pushes it. She uses a power chair for longer walks. She has a ramp to enter her home and they are starting to use it. She is showering I. She is standing in the shower and has does not have grab bars. She is interested in the OT who does home assessments. She is sitting to do her dressing. Pt has been doing a lot of rigorous exercises in the bed with weights. Kvng states that pt does get more challenged with fatigue. A little bit of extra stress increases the freezing. Treatment Goals Patient/Caregiver Goals To do better with her walking and to slow the progression PT-OP-C Subjective Start: 06/13/23 10:44 Freq: Status: Active Protocol: Document 07/03/23 11:17 SP (Rec: 07/03/23 12:32 SP [id number]) OP-PT Subjective Patient Comments Patient Comments Pt reports had hard time with her breath and tiring only did ex 1xday. Hasnt' had the freezing episode like before last tx. PT-OP-D Balance Start: 06/13/23 10:44 Freq: Status: Active Protocol: Document 06/13/23 10:54 MB (Rec: 06/13/23 14:03 MB [id number]) OP-PT Balance Assessment Sitting Balance Static Sitting Balance Ability Good Dynamic Sitting Balance Ability Fair Standing Balance Static Standing Balance Ability Fair Dynamic Standing Balance Ability Poor Device Used CGA from PT or wall or w/c walker Balance Tests Other Other Balance Tests Performed Pt must use wall and requires increased time to get into Romberg and she holds position for 20 sec. LOB with Romberg with EC. 3 sec SLS on right leg and 0 sec on left leg. Pinto Fall Scale Copyright Permission PT-OP-G Mobility & Gait Start: 06/13/23 10:44 Freq: Status: Active Protocol: Document 06/13/23 10:54 MB (Rec: 06/13/23 14:03 MB [id number]) OP Gait Assessment Comments Gait Comments Pt requires CGA to gait train with her w/c walker and she requires cues to step closer to it. It is too tall for her and her states it is at that height so that he can use it to push her when it is being used as a w/c. Ed pt and in benefits of a rollator from [employer] to allow a smaller AD for gait at home and in the PT clinic and they are open to going to look for a device PT-OP-H Neuro Start: 06/13/23 10:44 Freq: Status: Active Protocol: Document 06/13/23 10:54 MB (Rec: 06/13/23 14:03 MB [id number]) Coordination Evaluation Upper Extremity Tests Left Finger to Nose Test Minimal Impairment Pronation/Supination Test Minimal Impairment Right Finger to Nose Test Minimal Impairment Pronation/Supination Test Minimal Impairment Lower Extremity Tests Left Alternate Heel to Knee; Heel to Toe Test Minimal Impairment Foot Tapping Test Moderate Impairment Right Alternate Heel to Knee; Heel to Toe Test Minimal Impairment Foot Tapping Test Minimal Impairment Vital Signs Comments Vital Signs Comments Pt denies light-headedness when getting up and so did not check orthostatics PT-OP-J Posture/Palpation/Skin Start: 06/13/23 10:44 Freq: Status: Active Protocol: Document 06/13/23 10:54 MB (Rec: 06/13/23 14:03 MB [id number]) Posture Evaluation Comments Posture Comments Severe scoliotic posture in standing with flexed posture at hips and SB and rotation to the right PT-OP-K Range of Motion Start: 06/13/23 10:44 Freq: Status: Active Protocol: Document 06/13/23 10:54 MB (Rec: 06/13/23 14:03 MB [id number]) Shoulder Goniometric Range of Motion Shoulder Left Shoulder ROM WFL No Testing Position Sitting Flexion 120 Right Shoulder ROM WFL Yes Testing Position Sitting PT-OP-M Strength Start: 06/13/23 10:44 Freq: Status: Active Protocol: Document 06/13/23 10:54 MB (Rec: 06/13/23 14:03 MB [id number]) Shoulder Strength Shoulder Manual Muscle Testing Left Flexion 4 Good Abduction (C5) 4 Good Right Flexion 4+ Good+ Abduction (C5) 4+ Good+ Hip Strength Hip Manual Muscle Testing Bilateral Flexion (L2) 4+ Good+ Knee Strength Knee Manual Muscle Testing Bilateral Flexion (S2) 4+ Good+ Extension (L3) 4+ Good+ Ankle/Foot Strength Ankle and Foot Manual Muscle Testing Bilateral Dorsiflexion (L4) 4+ Good+ PT-OP-Q Treatments Start: 06/13/23 10:44 Freq: Status: Active Protocol: Document 07/03/23 11:17 SP (Rec: 07/03/23 12:32 SP [id number]) Therapeutic Exercises Sitting Exercises Side to side Equipment Used BIG chair Reps/Minutes 10 to each side Comments Cues for hand position /c flicks, side turn, leg back in - impr RLE back ROM Floor to ceiling Equipment Used BIG chair Reps/Minutes 10 Comments improved arm pos Standing Exercises Adapted side rock and reach Equipment Used BIG chair behind Reps/Minutes 10 Comments Cues for pivot on back ft, challenge L trunk turn, model arm up R Adapted forward rock and reach Equipment Used BIG chair at side Reps/Minutes 10 Comments Cued BIG arms 4>7 scale Adapted side step Equipment Used BIG chair in front Reps/Minutes 10 each side Comments Cues to bring foot back //, arm elevated , hand to lap, flick Adapted forward stepping Equipment Used BIG chair at side Reps/Minutes 10 each side Comments Cues each hand on lap, R UE on reach side Therapeutic Activity Therapeutic Activity BIG buttoning Name challenge base long sleeve shirt catching don shirt sleeve & behind back Comments Pt standing front of chair: don (34 sec)and button: 1:28 ( 34 sec don); unbutton 16 sec and doff: 24:51 sec. 2nd rep: start again don (23sec)/button 1:29; unbutton (sec)/doff: 28sec 3rd rep: don/button 1:10, unbutton/doff 22sec Pt with WEISS with N-95 on today , brief seated rest after 2nd rep. hand writing. Name ABCs, signature, writing check Reps/Minutes 10' Comments Improved full top/bottom line capital letters little shaky then lower case middle/bottom line, maintaining spacing bwtn letters. BIG transfer into passenger seat Name use metronome 82 BPM during pivot Reps/Minutes 3 Comments improved BIG steps pivot, back step to car. Improved BIG legs in/out with reps and use handle RUE OH. Self BIG Scale 6>8, SOAP CHIPPER agreed. BIG STS Reps/Minutes 10 Comments Modeled arms fwd coming stand then side, fwd sit, improved with reps Gait Training Gait Activity Gait training with rollator Description Metronome 82 SPM Comments Gait training in clinic, clinic hallway, and outside to car. Pt improved corrections 40% time with metronome and staying further from walker demetri over royce transition and turns, cues x2 stop reset to try to correct with BIG walking and stepping up and close to rollator step over step PT-OP-T Assessment and Plan Start: 06/13/23 10:44 Freq: Status: Active Protocol: Document 07/03/23 11:17 SP (Rec: 07/03/23 12:32 SP [id number]) Physical Therapy Assessment Goals 4 Impairment FES score is 55/69 [place] Burn[employer] Goal (LTG) Pt will present with score of no more than 45/64 on Falls Efficacy Scale to decrease perception of falls and fall risk. LTG Duration 5 weeks 3 Impairment Lack of PD specific HEP Nursing Home Goal (LTG) Pt will perform BIG exercises and functional activities with no more than cues from to improve amplitude of movement, balance and strength. LTG Duration 5 weeks 2 Impairment TUG in 26 sec with use of her w/c walker Nursing Home Goal (LTG) Pt will perform TUG in no more than 15 sec with use of LRAD to decrease fall risk. LTG Duration 5 weeks 1 Impairment 5 reps STS in 30 sec in BIG chair Nursing Home Goal (LTG) Pt will perform at least 12 reps STS in BIG chair in 30 sec to improve functional balance with transfers. LTG Duration 5 weeks Assessment Summary Assessment Pt making gains in shirt mgt don 2:43 to 1:10/doff 36sec to 22sec. She improved by 60% self correction in gait proximity and stride receiprocal stepping with use of metronome 82BPM. downloaded a metronome pratima for carryover support to pt at home to allow her self awareness. Improved BIG awareness LEs in/outcar 6>8 scale rating. Physical Therapy Plan Frequency and Duration Frequency of Treatment 4x/Week Duration of treatment (weeks) 5 Plan of Care Start Date 06/13/23 Plan of Care End Date 07/24/23 Therapeutic Interventions Therapeutic Interventions Balance Training,Canalithic Repositioning,Coordination Training,Gait Training,Home Exercise Program,Neuromuscular Re-education,Patient/ Caregiver Education,Self-Care/ Home Management,Therapeutic Activities,Therapeutic Exercises Modalities Cold Pack/Ice Massage,Hot Packs Other Referrals/Consults Referrals/Consults Recommended [facility] for home assessment per pt request Next Visit Focus/Plan Next Note Type Treatment Note Next Visit Plan HW: use metronome 82BPM gait/ pivots, stop reset if needed. Review adapted BIG exercises. Funtional tasks include buttoning, handwriting, getting in and out of low and deep seats and getting in and out of the car.
--- NOTE | 2023-07-04 12:30 | PT.OTN ---
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) Other abnormalities of gait and mobility (07/04/23) Apraxia (07/04/23) Unspecified fall, sequela (07/04/23) Dependence on wheelchair (07/04/23) Physical Therapy Treatment Note PT-OP-A Visit Information Start: 06/13/23 10:44 Freq: Status: Active Protocol: Document 07/04/23 11:16 MB (Rec: 07/04/23 12:29 MB [id number]) Out-Patient Physical Therapy Visit Information Visit Information Visit Type Progress Note Visit Start Time 11:16 Visit Stop Time 12:10 Visit Number 9 Number of PROJECT CONTROL OFFICER Visits 0 PT-OP-B Current Condition Start: 06/13/23 10:44 Freq: Status: Active Protocol: Document 06/13/23 10:54 MB (Rec: 06/13/23 11:44 MB [id number]) Current Condition History of Current Condition Onset Date 2018 Current Complaints Weakness and unsteady walking History of Current Condition Pt, Farhana, and spouse, Donavan, arrive to the appointment and pt transported in the w/c. Pt was diagnosed with supranuclear palsy in April of 2023. Pt saw neurologist in 2019 d/t trouble with walking. She had a small tremor at the time. The movement specialist did a test with her eyes and did not see any tracking/a normal response with an eye exam and she sees neuro opthalmologist in August of 2023. Pt is a furniture walker at home. She uses transfer walker chair in the house as well as as pushes it. She uses a power chair for longer walks. She has a ramp to enter her home and they are starting to use it. She is showering I. She is standing in the shower and has does not have grab bars. She is interested in the OT who does home assessments. She is sitting to do her dressing. Pt has been doing a lot of rigorous exercises in the bed with weights. Kvng states that pt does get more challenged with fatigue. A little bit of extra stress increases the freezing. Treatment Goals Patient/Caregiver Goals To do better with her walking and to slow the progression PT-OP-C Subjective Start: 06/13/23 10:44 Freq: Status: Active Protocol: Document 07/04/23 11:16 MB (Rec: 07/04/23 12:29 MB [id number]) OP-PT Subjective Patient Comments Patient Comments Pt states that she is faster at the buttoning since starting therapy. She doesn't feel as stiff since starting therapy. Having the virus has caused a little set back. She is walking better with rollator when she uses it. She has been furniture walking at home. PT-OP-D Balance Start: 06/13/23 10:44 Freq: Status: Active Protocol: Document 06/13/23 10:54 MB (Rec: 06/13/23 14:03 MB [id number]) OP-PT Balance Assessment Sitting Balance Static Sitting Balance Ability Good Dynamic Sitting Balance Ability Fair Standing Balance Static Standing Balance Ability Fair Dynamic Standing Balance Ability Poor Device Used CGA from PT or wall or w/c walker Balance Tests Other Other Balance Tests Performed Pt must use wall and requires increased time to get into Romberg and she holds position for 20 sec. LOB with Romberg with EC. 3 sec SLS on right leg and 0 sec on left leg. Pinto Fall Scale Copyright Permission PT-OP-G Mobility & Gait Start: 06/13/23 10:44 Freq: Status: Active Protocol: Document 06/13/23 10:54 MB (Rec: 06/13/23 14:03 MB [id number]) OP Gait Assessment Comments Gait Comments Pt requires CGA to gait train with her w/c walker and she requires cues to step closer to it. It is too tall for her and her states it is at that height so that he can use it to push her when it is being used as a w/c. Ed pt and in benefits of a rollator from [employer] to allow a smaller AD for gait at home and in the PT clinic and they are open to going to look for a device PT-OP-H Neuro Start: 06/13/23 10:44 Freq: Status: Active Protocol: Document 06/13/23 10:54 MB (Rec: 06/13/23 14:03 MB [id number]) Coordination Evaluation Upper Extremity Tests Left Finger to Nose Test Minimal Impairment Pronation/Supination Test Minimal Impairment Right Finger to Nose Test Minimal Impairment Pronation/Supination Test Minimal Impairment Lower Extremity Tests Left Alternate Heel to Knee; Heel to Toe Test Minimal Impairment Foot Tapping Test Moderate Impairment Right Alternate Heel to Knee; Heel to Toe Test Minimal Impairment Foot Tapping Test Minimal Impairment Vital Signs Comments Vital Signs Comments Pt denies light-headedness when getting up and so did not check orthostatics PT-OP-J Posture/Palpation/Skin Start: 06/13/23 10:44 Freq: Status: Active Protocol: Document 06/13/23 10:54 MB (Rec: 06/13/23 14:03 MB [id number]) Posture Evaluation Comments Posture Comments Severe scoliotic posture in standing with flexed posture at hips and SB and rotation to the right PT-OP-K Range of Motion Start: 06/13/23 10:44 Freq: Status: Active Protocol: Document 06/13/23 10:54 MB (Rec: 06/13/23 14:03 MB [id number]) Shoulder Goniometric Range of Motion Shoulder Left Shoulder ROM WFL No Testing Position Sitting Flexion 120 Right Shoulder ROM WFL Yes Testing Position Sitting PT-OP-M Strength Start: 06/13/23 10:44 Freq: Status: Active Protocol: Document 06/13/23 10:54 MB (Rec: 06/13/23 14:03 MB [id number]) Shoulder Strength Shoulder Manual Muscle Testing Left Flexion 4 Good Abduction (C5) 4 Good Right Flexion 4+ Good+ Abduction (C5) 4+ Good+ Hip Strength Hip Manual Muscle Testing Bilateral Flexion (L2) 4+ Good+ Knee Strength Knee Manual Muscle Testing Bilateral Flexion (S2) 4+ Good+ Extension (L3) 4+ Good+ Ankle/Foot Strength Ankle and Foot Manual Muscle Testing Bilateral Dorsiflexion (L4) 4+ Good+ PT-OP-Q Treatments Start: 06/13/23 10:44 Freq: Status: Active Protocol: Document 07/04/23 11:16 MB (Rec: 07/04/23 12:29 MB [id number]) Therapeutic Exercises Sitting Exercises Sit to stands Comments See in goals pt's 30 sec STS today Therapeutic Activity Therapeutic Activity Pill moving/containers Comments Pt brings her pill boxes and PT and pt and review best ways/work around for loading pill boxes and pt has good strategies to perform and will not perform further during PT hand writing. Name Jhoan nielsen Comments Cues to write big in the small spaces BIG transfer into passenger seat Comments Performed today getting into the car with cues to step back BIG with rollator and to sit back big and lift leg big into the car Gait Training Gait Activity Gait training with rollator Comments Multiple gait training trials in the clinic and outside using rollator and cues to step big and stay closer to the walker and step back big when moving back to chair Neuro Re-Education Treatment Balance Activities 30 sec STS Comments See goals below today TUG Comments Performed today and see goals for findings today, performed many times PT-OP-T Assessment and Plan Start: 06/13/23 10:44 Freq: Status: Active Protocol: Document 07/04/23 11:16 MB (Rec: 07/04/23 12:29 MB [id number]) Physical Therapy Assessment Rehab Potential Rehabilitation Potential Fair Evaluation Complexity Number of Personal Factors/Comorbidities 1-2 Number of Body Systems Impaired 3 Clinical Presentation at Evaluation Evolving Impairments Impairments Activity Tolerance,Balance, Coordination,Functional Activities,Functional Mobility ,Gait,Posture,ROM,Strength, Transfers Goals 4 Impairment FES score is 55/69 Snf Goal (LTG) Pt will present with score of no more than 45/64 on Falls Efficacy Scale to decrease perception of falls and fall risk. 07/04/23: Progress as FES score is 44/64 LTG Duration 5 weeks 3 Impairment Lack of PD specific HEP Financial Operations Consultant Goal (LTG) Pt will perform BIG exercises and functional activities with no more than cues from to improve amplitude of movement, balance and strength. 07/04/23: Pt is performing exercises at home when she is feeling well. She is doing buttoning, handwriting and getting in and out of car as well LTG Duration 5 weeks 2 Impairment TUG in 26 sec with use of her w/c walker Financial Operations Consultant Goal (LTG) Pt will perform TUG in no more than 15 sec with use of LRAD to decrease fall risk. 07/04/23: First rep, 25 sec; 2nd rep, 24 sec; 3rd rep 23 sec; 4th rep: 23 sec; 5th rep: 22 sec LTG Duration 5 weeks 1 Impairment 5 reps STS in 30 sec in BIG chair Snf Goal (LTG) Pt will perform at least 12 reps STS in BIG chair in 30 sec to improve functional balance with transfers. 07/04/23: First set 5 reps; second set 7 reps with better weight shift and use of arms similar to BIG exercises LTG Duration 5 weeks Assessment Summary Assessment Progress note today and pt is progressing slowly towards PT goals and she is able to perform 2 more STS in 30 sec than she could on the eval date and her TUG is a few seconds shorter. Pt and are doing exercises at home when she is feeling okay . Her c/o respiratory virus in the past week have decreased her feeling like she can do exercises. She has con't to furniture walk at home and firm education today to walk with rollator in the house. Physical Therapy Plan Frequency and Duration Frequency of Treatment 4x/Week Duration of treatment (weeks) 5 Plan of Care Start Date 06/13/23 Plan of Care End Date 07/24/23 Therapeutic Interventions Therapeutic Interventions Balance Training,Canalithic Repositioning,Coordination Training,Gait Training,Home Exercise Program,Neuromuscular Re-education,Patient/ Caregiver Education,Self-Care/ Home Management,Therapeutic Activities,Therapeutic Exercises Modalities Cold Pack/Ice Massage,Hot Packs Next Visit Focus/Plan Next Note Type Treatment Note Next Visit Plan HW: use metronome 82BPM gait/ pivots, stop reset if needed. Review adapted BIG exercises. Funtional tasks include buttoning, handwriting, getting in and out of low and deep seats and getting in and out of the car.
--- NOTE | 2023-07-05 11:31 | PT.OTN ---
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) Other abnormalities of gait and mobility (07/05/23) Apraxia (07/05/23) Unspecified fall, sequela (07/05/23) Dependence on wheelchair (07/05/23) Physical Therapy Treatment Note PT-OP-A Visit Information Start: 06/13/23 10:44 Freq: Status: Active Protocol: Document 07/05/23 10:34 MB (Rec: 07/05/23 11:31 MB [id number]) Out-Patient Physical Therapy Visit Information Visit Information Visit Type Treatment Note Visit Start Time 10:34 Visit Stop Time 11:28 Visit Number 10 Number of ACT TUTOR Visits 0 PT-OP-B Current Condition Start: 06/13/23 10:44 Freq: Status: Active Protocol: Document 06/13/23 10:54 MB (Rec: 06/13/23 11:44 MB [id number]) Current Condition History of Current Condition Onset Date 2018 Current Complaints Weakness and unsteady walking History of Current Condition Pt, Farhana, and spouse, Donavan, arrive to the appointment and pt transported in the w/c. Pt was diagnosed with supranuclear palsy in April of 2023. Pt saw neurologist in 2019 d/t trouble with walking. She had a small tremor at the time. The movement specialist did a test with her eyes and did not see any tracking/a normal response with an eye exam and she sees neuro opthalmologist in August of 2023. Pt is a furniture walker at home. She uses transfer walker chair in the house as well as as pushes it. She uses a power chair for longer walks. She has a ramp to enter her home and they are starting to use it. She is showering I. She is standing in the shower and has does not have grab bars. She is interested in the OT who does home assessments. She is sitting to do her dressing. Pt has been doing a lot of rigorous exercises in the bed with weights. Kvng states that pt does get more challenged with fatigue. A little bit of extra stress increases the freezing. Treatment Goals Patient/Caregiver Goals To do better with her walking and to slow the progression PT-OP-C Subjective Start: 06/13/23 10:44 Freq: Status: Active Protocol: Document 07/05/23 10:34 MB (Rec: 07/05/23 11:31 MB [id number]) OP-PT Subjective Patient Comments Patient Comments Pt states that her back is hurting from doing the side rock and reach in standing earlier in the week. She talks to her movement specialist later about her testing findings. They met with [employer] sales representative, Arturo, and it was a great experience. PT-OP-D Balance Start: 06/13/23 10:44 Freq: Status: Active Protocol: Document 06/13/23 10:54 MB (Rec: 06/13/23 14:03 MB [id number]) OP-PT Balance Assessment Sitting Balance Static Sitting Balance Ability Good Dynamic Sitting Balance Ability Fair Standing Balance Static Standing Balance Ability Fair Dynamic Standing Balance Ability Poor Device Used CGA from PT or wall or w/c walker Balance Tests Other Other Balance Tests Performed Pt must use wall and requires increased time to get into Romberg and she holds position for 20 sec. LOB with Romberg with EC. 3 sec SLS on right leg and 0 sec on left leg. Pinto Fall Scale Copyright Permission PT-OP-G Mobility & Gait Start: 06/13/23 10:44 Freq: Status: Active Protocol: Document 06/13/23 10:54 MB (Rec: 06/13/23 14:03 MB [id number]) OP Gait Assessment Comments Gait Comments Pt requires CGA to gait train with her w/c walker and she requires cues to step closer to it. It is too tall for her and her states it is at that height so that he can use it to push her when it is being used as a w/c. Ed pt and in benefits of a rollator from [employer] to allow a smaller AD for gait at home and in the PT clinic and they are open to going to look for a device PT-OP-H Neuro Start: 06/13/23 10:44 Freq: Status: Active Protocol: Document 06/13/23 10:54 MB (Rec: 06/13/23 14:03 MB [id number]) Coordination Evaluation Upper Extremity Tests Left Finger to Nose Test Minimal Impairment Pronation/Supination Test Minimal Impairment Right Finger to Nose Test Minimal Impairment Pronation/Supination Test Minimal Impairment Lower Extremity Tests Left Alternate Heel to Knee; Heel to Toe Test Minimal Impairment Foot Tapping Test Moderate Impairment Right Alternate Heel to Knee; Heel to Toe Test Minimal Impairment Foot Tapping Test Minimal Impairment Vital Signs Comments Vital Signs Comments Pt denies light-headedness when getting up and so did not check orthostatics PT-OP-J Posture/Palpation/Skin Start: 06/13/23 10:44 Freq: Status: Active Protocol: Document 06/13/23 10:54 MB (Rec: 06/13/23 14:03 MB [id number]) Posture Evaluation Comments Posture Comments Severe scoliotic posture in standing with flexed posture at hips and SB and rotation to the right PT-OP-K Range of Motion Start: 06/13/23 10:44 Freq: Status: Active Protocol: Document 06/13/23 10:54 MB (Rec: 06/13/23 14:03 MB [id number]) Shoulder Goniometric Range of Motion Shoulder Left Shoulder ROM WFL No Testing Position Sitting Flexion 120 Right Shoulder ROM WFL Yes Testing Position Sitting PT-OP-M Strength Start: 06/13/23 10:44 Freq: Status: Active Protocol: Document 06/13/23 10:54 MB (Rec: 06/13/23 14:03 MB [id number]) Shoulder Strength Shoulder Manual Muscle Testing Left Flexion 4 Good Abduction (C5) 4 Good Right Flexion 4+ Good+ Abduction (C5) 4+ Good+ Hip Strength Hip Manual Muscle Testing Bilateral Flexion (L2) 4+ Good+ Knee Strength Knee Manual Muscle Testing Bilateral Flexion (S2) 4+ Good+ Extension (L3) 4+ Good+ Ankle/Foot Strength Ankle and Foot Manual Muscle Testing Bilateral Dorsiflexion (L4) 4+ Good+ PT-OP-Q Treatments Start: 06/13/23 10:44 Freq: Status: Active Protocol: Document 07/05/23 10:34 MB (Rec: 07/05/23 11:31 MB [id number]) Therapeutic Exercises Sitting Exercises Side to side Equipment Used BIG chair Reps/Minutes 10 to each side Comments Flicks Floor to ceiling Equipment Used BIG chair Reps/Minutes 10 Standing Exercises Adapted side rock and reach Standing Exercise Name PT assist to move foot Equipment Used BIG chair behind Reps/Minutes 10 Comments Pt reports back pains after ex at home, does not pivot on toe Adapted forward rock and reach Equipment Used BIG chair at side Reps/Minutes 10 Comments Cues for arm swing and weight shift Adapted backwards step Equipment Used Ballet Reps/Minutes 10 each side Comments Cues for big front toe Adapted side step Equipment Used Ballet bar Reps/Minutes 10 each side Comments Cues to bring foot back Adapted forward stepping Equipment Used Ballet bar Reps/Minutes 10 each side Comments Cues to bring hand back to side and foot back Therapeutic Activity Therapeutic Activity hand writing. Name Jhoan nielsen Comments and PT give short words to allow pt to write big in smaller spaces BIG transfer into passenger seat Comments Performed today getting into the car with cues to step back BIG with rollator and to sit back big and lift leg big into the car BIG STS Reps/Minutes 10 Comments No trouble standing on first two reps today and that is improvement Gait Training Gait Activity Gait training with rollator Comments Multiple gait training trials in the clinic and outside using rollator and cues to step big and stay closer to the walker PT-OP-T Assessment and Plan Start: 06/13/23 10:44 Freq: Status: Active Protocol: Document 07/05/23 10:34 MB (Rec: 07/05/23 11:31 MB [id number]) Physical Therapy Assessment Rehab Potential Rehabilitation Potential Fair Evaluation Complexity Number of Personal Factors/Comorbidities 1-2 Number of Body Systems Impaired 3 Clinical Presentation at Evaluation Evolving Impairments Impairments Activity Tolerance,Balance, Coordination,Functional Activities,Functional Mobility ,Gait,Posture,ROM,Strength, Transfers Goals 4 Impairment FES score is 55/69 Fci Goal (LTG) Pt will present with score of no more than 45/64 on Falls Efficacy Scale to decrease perception of falls and fall risk. 07/04/23: Progress as FES score is 44/64 LTG Duration 5 weeks 3 Impairment Lack of PD specific HEP [facility]ci Goal (LTG) Pt will perform BIG exercises and functional activities with no more than cues from to improve amplitude of movement, balance and strength. 07/04/23: Pt is performing exercises at home when she is feeling well. She is doing buttoning, handwriting and getting in and out of car as well LTG Duration 5 weeks 2 Impairment TUG in 26 sec with use of her w/c walker Fci Goal (LTG) Pt will perform TUG in no more than 15 sec with use of LRAD to decrease fall risk. 07/04/23: First rep, 25 sec; 2nd rep, 24 sec; 3rd rep 23 sec; 4th rep: 23 sec; 5th rep: 22 sec LTG Duration 5 weeks 1 Impairment 5 reps STS in 30 sec in BIG chair Fci Goal (LTG) Pt will perform at least 12 reps STS in BIG chair in 30 sec to improve functional balance with transfers. 07/04/23: First set 5 reps; second set 7 reps with better weight shift and use of arms similar to BIG exercises LTG Duration 5 weeks Assessment Summary Assessment Pt is doing much better with all exercises except side rock and reach. She is fatigued today and shorter treatment by a couple of minutes. Physical Therapy Plan Frequency and Duration Frequency of Treatment 4x/Week Duration of treatment (weeks) 5 Plan of Care Start Date 06/13/23 Plan of Care End Date 07/24/23 Therapeutic Interventions Therapeutic Interventions Balance Training,Canalithic Repositioning,Coordination Training,Gait Training,Home Exercise Program,Neuromuscular Re-education,Patient/ Caregiver Education,Self-Care/ Home Management,Therapeutic Activities,Therapeutic Exercises Modalities Cold Pack/Ice Massage,Hot Packs Next Visit Focus/Plan Next Note Type Treatment Note Next Visit Plan HW: use metronome 82BPM gait/ pivots, stop reset if needed. Review adapted BIG exercises. Funtional tasks include buttoning, handwriting, getting in and out of low and deep seats and getting in and out of the car.
--- NOTE | 2023-07-06 12:18 | PT.OTN ---
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) Other abnormalities of gait and mobility (07/06/23) Apraxia (07/06/23) Unspecified fall, sequela (07/06/23) Dependence on wheelchair (07/06/23) Physical Therapy Treatment Note PT-OP-A Visit Information Start: 06/13/23 10:44 Freq: Status: Active Protocol: Document 07/06/23 11:18 SP (Rec: 07/06/23 12:34 SP [id number]) Out-Patient Physical Therapy Visit Information Visit Information Visit Type Treatment Note Visit Note 05/27 post PN Visit Start Time 11:18 Visit Stop Time 12:18 Visit Number 11 Number of INTEGRATION DIRECTOR Visits 1 Evaluation Information Evaluation Date 06/13/23 PT-OP-B Current Condition Start: 06/13/23 10:44 Freq: Status: Active Protocol: Document 06/13/23 10:54 MB (Rec: 06/13/23 11:44 MB [id number]) Current Condition History of Current Condition Onset Date 2018 Current Complaints Weakness and unsteady walking History of Current Condition Pt, Farhana, and spouse, Donavan, arrive to the appointment and pt transported in the w/c. Pt was diagnosed with supranuclear palsy in April of 2023. Pt saw neurologist in 2019 d/t trouble with walking. She had a small tremor at the time. The movement specialist did a test with her eyes and did not see any tracking/a normal response with an eye exam and she sees neuro opthalmologist in August of 2023. Pt is a furniture walker at home. She uses transfer walker chair in the house as well as as pushes it. She uses a power chair for longer walks. She has a ramp to enter her home and they are starting to use it. She is showering I. She is standing in the shower and has does not have grab bars. She is interested in the OT who does home assessments. She is sitting to do her dressing. Pt has been doing a lot of rigorous exercises in the bed with weights. Kvng states that pt does get more challenged with fatigue. A little bit of extra stress increases the freezing. Treatment Goals Patient/Caregiver Goals To do better with her walking and to slow the progression PT-OP-C Subjective Start: 06/13/23 10:44 Freq: Status: Active Protocol: Document 07/06/23 11:18 SP (Rec: 07/06/23 12:34 SP [id number]) OP-PT Subjective Patient Comments Patient Comments Pt reports felt didn't think doing as much as have been doing effort but seeing overall gains. PT-OP-D Balance Start: 06/13/23 10:44 Freq: Status: Active Protocol: Document 06/13/23 10:54 MB (Rec: 06/13/23 14:03 MB [id number]) OP-PT Balance Assessment Sitting Balance Static Sitting Balance Ability Good Dynamic Sitting Balance Ability Fair Standing Balance Static Standing Balance Ability Fair Dynamic Standing Balance Ability Poor Device Used CGA from PT or wall or w/c walker Balance Tests Other Other Balance Tests Performed Pt must use wall and requires increased time to get into Romberg and she holds position for 20 sec. LOB with Romberg with EC. 3 sec SLS on right leg and 0 sec on left leg. Pinto Fall Scale Copyright Permission PT-OP-G Mobility & Gait Start: 06/13/23 10:44 Freq: Status: Active Protocol: Document 06/13/23 10:54 MB (Rec: 06/13/23 14:03 MB [id number]) OP Gait Assessment Comments Gait Comments Pt requires CGA to gait train with her w/c walker and she requires cues to step closer to it. It is too tall for her and her states it is at that height so that he can use it to push her when it is being used as a w/c. Ed pt and in benefits of a rollator from [employer] to allow a smaller AD for gait at home and in the PT clinic and they are open to going to look for a device PT-OP-H Neuro Start: 06/13/23 10:44 Freq: Status: Active Protocol: Document 06/13/23 10:54 MB (Rec: 06/13/23 14:03 MB [id number]) Coordination Evaluation Upper Extremity Tests Left Finger to Nose Test Minimal Impairment Pronation/Supination Test Minimal Impairment Right Finger to Nose Test Minimal Impairment Pronation/Supination Test Minimal Impairment Lower Extremity Tests Left Alternate Heel to Knee; Heel to Toe Test Minimal Impairment Foot Tapping Test Moderate Impairment Right Alternate Heel to Knee; Heel to Toe Test Minimal Impairment Foot Tapping Test Minimal Impairment Vital Signs Comments Vital Signs Comments Pt denies light-headedness when getting up and so did not check orthostatics PT-OP-J Posture/Palpation/Skin Start: 06/13/23 10:44 Freq: Status: Active Protocol: Document 06/13/23 10:54 MB (Rec: 06/13/23 14:03 MB [id number]) Posture Evaluation Comments Posture Comments Severe scoliotic posture in standing with flexed posture at hips and SB and rotation to the right PT-OP-K Range of Motion Start: 06/13/23 10:44 Freq: Status: Active Protocol: Document 06/13/23 10:54 MB (Rec: 06/13/23 14:03 MB [id number]) Shoulder Goniometric Range of Motion Shoulder Left Shoulder ROM WFL No Testing Position Sitting Flexion 120 Right Shoulder ROM WFL Yes Testing Position Sitting PT-OP-M Strength Start: 06/13/23 10:44 Freq: Status: Active Protocol: Document 06/13/23 10:54 MB (Rec: 06/13/23 14:03 MB [id number]) Shoulder Strength Shoulder Manual Muscle Testing Left Flexion 4 Good Abduction (C5) 4 Good Right Flexion 4+ Good+ Abduction (C5) 4+ Good+ Hip Strength Hip Manual Muscle Testing Bilateral Flexion (L2) 4+ Good+ Knee Strength Knee Manual Muscle Testing Bilateral Flexion (S2) 4+ Good+ Extension (L3) 4+ Good+ Ankle/Foot Strength Ankle and Foot Manual Muscle Testing Bilateral Dorsiflexion (L4) 4+ Good+ PT-OP-Q Treatments Start: 06/13/23 10:44 Freq: Status: Active Protocol: Document 07/06/23 11:18 SP (Rec: 07/06/23 12:34 SP [id number]) Therapeutic Exercises Sitting Exercises Side to side Equipment Used BIG chair Reps/Minutes 10 to each side Comments Flicks, better R leg back, still limited L Floor to ceiling Equipment Used BIG chair Reps/Minutes 10 Comments Model/shape up, then out, not arching- hold /c flicks Standing Exercises Adapted side rock and reach Standing Exercise Name PT assist to move foot Equipment Used BIG chair behind Reps/Minutes 10 Comments Limited trunk going to L, better on R, cued pivot on back toe Adapted forward rock and reach Equipment Used BIG chair at side Reps/Minutes 10 Comments Cues for arm swing Adapted backwards step Equipment Used Ballet Reps/Minutes 10 each side Comments Cues for big front toe Adapted side step Equipment Used Ballet bar Reps/Minutes 10 each side Comments Cues to bring foot back, lift UE higher Adapted forward stepping Equipment Used Ballet bar Reps/Minutes 10 each side Comments Cues to bring hand back to side and foot back together Therapeutic Activity Therapeutic Activity Pill moving/containers Name spoke to PT- not problem updated her strategies Comments Pt reported found a strategy put pills in bowl and pick out bowl easier than trying pick out of bottle. PT told pt then sounds good, no need to include in PT- DC BIG buttoning Name challenge black shirt holes smaller & little more snug shirt & behind back Comments Pt standing front of chair: don (22 sec) and button: 2:42; unbutton 1:26 sec and doff: 1 :37 sec. 2nd rep: start again don (17sec)/button 1:57; unbutton (sec)/doff: 1:04 hand writing. Name Jhoan nielsen Comments and PT give some longer words work ok writing pt big in smaller spaces, squirrel. BIG transfer into passenger seat Reps/Minutes 2 Comments Performed today getting into the car with cues to step back BIG with rollator and to sit back big and lift leg big into the car BIG STS Reps/Minutes 10 Comments trouble standing on first reps today, improvement wt shift to come stand arms fwd rest reps. Modeled full upright stand last 2 reps improved. Gait Training Gait Activity Gait training with rollator Description 82>80 BPM metronome Comments Multiple gait training trials in the clinic and outside using rollator and cues to step big /c DF foot clearance and stay closer to the walker- challenged /c metronome 82 BP > 80 BPM. 4 total need stop reset closer to 4WW. PT-OP-T Assessment and Plan Start: 06/13/23 10:44 Freq: Status: Active Protocol: Document 07/06/23 11:18 SP (Rec: 07/06/23 12:34 SP [id number]) Physical Therapy Assessment Goals 4 Impairment FES score is 55/69 Combat Systems Operator Goal (LTG) Pt will present with score of no more than 45/64 on Falls Efficacy Scale to decrease perception of falls and fall risk. 07/04/23: Progress as FES score is 44/64 LTG Duration 5 weeks 3 Impairment Lack of PD specific HEP Senior Living Goal (LTG) Pt will perform BIG exercises and functional activities with no more than cues from to improve amplitude of movement, balance and strength. 07/04/23: Pt is performing exercises at home when she is feeling well. She is doing buttoning, handwriting and getting in and out of car as well LTG Duration 5 weeks 2 Impairment TUG in 26 sec with use of her w/c walker Combat Systems Operator Goal (LTG) Pt will perform TUG in no more than 15 sec with use of LRAD to decrease fall risk. 07/04/23: First rep, 25 sec; 2nd rep, 24 sec; 3rd rep 23 sec; 4th rep: 23 sec; 5th rep: 22 sec LTG Duration 5 weeks 1 Impairment 5 reps STS in 30 sec in BIG chair Combat Systems Operator Goal (LTG) Pt will perform at least 12 reps STS in BIG chair in 30 sec to improve functional balance with transfers. 07/04/23: First set 5 reps; second set 7 reps with better weight shift and use of arms similar to BIG exercises LTG Duration 5 weeks Assessment Summary Assessment Pt required cued arm elevated and step return during side reach, toe up back step. CHallenged 82bpm metronome improved decreased to 80 bpm, continued cues BIG Step with extra DF foot clearnace, proximityto 4WW with slower pacing control use brakes. Improved big legs into car 2nd rep. Physical Therapy Plan Frequency and Duration Frequency of Treatment 4x/Week Duration of treatment (weeks) 5 Plan of Care Start Date 06/13/23 Plan of Care End Date 07/24/23 Therapeutic Interventions Therapeutic Interventions Balance Training,Canalithic Repositioning,Coordination Training,Gait Training,Home Exercise Program,Neuromuscular Re-education,Patient/ Caregiver Education,Self-Care/ Home Management,Therapeutic Activities,Therapeutic Exercises Modalities Cold Pack/Ice Massage,Hot Packs Other Referrals/Consults Referrals/Consults Recommended [facility] for home assessment per pt request Next Visit Focus/Plan Next Note Type Treatment Note Next Visit Plan HW: use metronome 80-822BPM gait/ pivots, stop reset if needed. Review adapted BIG exercises. Funtional tasks include buttoning, handwriting, getting in and out of low and deep seats and getting in and out of the car.
--- NOTE | 2023-07-10 12:12 | PT.OTN ---
Current Diagnoses Parkinsonism, unspecified (07/10/23) Other specified disorders of brain (07/10/23) Unspecified disorder of binocular movement (07/10/23) Other abnormalities of gait and mobility (07/10/23) Apraxia (07/10/23) Unspecified fall, sequela (07/10/23) Dependence on wheelchair (07/10/23) Physical Therapy Treatment Note PT-OP-A Visit Information Start: 06/13/23 10:44 Freq: Status: Active Protocol: Document 07/10/23 11:12 SP (Rec: 07/10/23 12:27 SP [id number]) Out-Patient Physical Therapy Visit Information Visit Information Visit Type Treatment Note Visit Note 06/24 post PN Visit Start Time 11:15 Visit Stop Time 12:12 Visit Number 12 Number of SYSTEMS SUPPORT OFFICER Visits 2 Evaluation Information Evaluation Date 06/13/23 PT-OP-B Current Condition Start: 06/13/23 10:44 Freq: Status: Active Protocol: Document 06/13/23 10:54 MB (Rec: 06/13/23 11:44 MB [id number]) Current Condition History of Current Condition Onset Date 2018 Current Complaints Weakness and unsteady walking History of Current Condition Pt, Farhana, and spouse, Donavan, arrive to the appointment and pt transported in the w/c. Pt was diagnosed with supranuclear palsy in April of 2023. Pt saw neurologist in 2019 d/t trouble with walking. She had a small tremor at the time. The movement specialist did a test with her eyes and did not see any tracking/a normal response with an eye exam and she sees neuro opthalmologist in August of 2023. Pt is a furniture walker at home. She uses transfer walker chair in the house as well as as pushes it. She uses a power chair for longer walks. She has a ramp to enter her home and they are starting to use it. She is showering I. She is standing in the shower and has does not have grab bars. She is interested in the OT who does home assessments. She is sitting to do her dressing. Pt has been doing a lot of rigorous exercises in the bed with weights. Kvng states that pt does get more challenged with fatigue. A little bit of extra stress increases the freezing. Treatment Goals Patient/Caregiver Goals To do better with her walking and to slow the progression PT-OP-C Subjective Start: 06/13/23 10:44 Freq: Status: Active Protocol: Document 07/10/23 11:12 SP (Rec: 07/10/23 12:27 SP [id number]) OP-PT Subjective Patient Comments Patient Comments Pt PT-OP-D Balance Start: 06/13/23 10:44 Freq: Status: Active Protocol: Document 06/13/23 10:54 MB (Rec: 06/13/23 14:03 MB [id number]) OP-PT Balance Assessment Sitting Balance Static Sitting Balance Ability Good Dynamic Sitting Balance Ability Fair Standing Balance Static Standing Balance Ability Fair Dynamic Standing Balance Ability Poor Device Used CGA from PT or wall or w/c walker Balance Tests Other Other Balance Tests Performed Pt must use wall and requires increased time to get into Romberg and she holds position for 20 sec. LOB with Romberg with EC. 3 sec SLS on right leg and 0 sec on left leg. Pinto Fall Scale Copyright Permission PT-OP-G Mobility & Gait Start: 06/13/23 10:44 Freq: Status: Active Protocol: Document 06/13/23 10:54 MB (Rec: 06/13/23 14:03 MB [id number]) OP Gait Assessment Comments Gait Comments Pt requires CGA to gait train with her w/c walker and she requires cues to step closer to it. It is too tall for her and her states it is at that height so that he can use it to push her when it is being used as a w/c. Ed pt and in benefits of a rollator from [employer] to allow a smaller AD for gait at home and in the PT clinic and they are open to going to look for a device PT-OP-H Neuro Start: 06/13/23 10:44 Freq: Status: Active Protocol: Document 06/13/23 10:54 MB (Rec: 06/13/23 14:03 MB [id number]) Coordination Evaluation Upper Extremity Tests Left Finger to Nose Test Minimal Impairment Pronation/Supination Test Minimal Impairment Right Finger to Nose Test Minimal Impairment Pronation/Supination Test Minimal Impairment Lower Extremity Tests Left Alternate Heel to Knee; Heel to Toe Test Minimal Impairment Foot Tapping Test Moderate Impairment Right Alternate Heel to Knee; Heel to Toe Test Minimal Impairment Foot Tapping Test Minimal Impairment Vital Signs Comments Vital Signs Comments Pt denies light-headedness when getting up and so did not check orthostatics PT-OP-J Posture/Palpation/Skin Start: 06/13/23 10:44 Freq: Status: Active Protocol: Document 06/13/23 10:54 MB (Rec: 06/13/23 14:03 MB [id number]) Posture Evaluation Comments Posture Comments Severe scoliotic posture in standing with flexed posture at hips and SB and rotation to the right PT-OP-K Range of Motion Start: 06/13/23 10:44 Freq: Status: Active Protocol: Document 06/13/23 10:54 MB (Rec: 06/13/23 14:03 MB [id number]) Shoulder Goniometric Range of Motion Shoulder Left Shoulder ROM WFL No Testing Position Sitting Flexion 120 Right Shoulder ROM WFL Yes Testing Position Sitting PT-OP-M Strength Start: 06/13/23 10:44 Freq: Status: Active Protocol: Document 06/13/23 10:54 MB (Rec: 06/13/23 14:03 MB [id number]) Shoulder Strength Shoulder Manual Muscle Testing Left Flexion 4 Good Abduction (C5) 4 Good Right Flexion 4+ Good+ Abduction (C5) 4+ Good+ Hip Strength Hip Manual Muscle Testing Bilateral Flexion (L2) 4+ Good+ Knee Strength Knee Manual Muscle Testing Bilateral Flexion (S2) 4+ Good+ Extension (L3) 4+ Good+ Ankle/Foot Strength Ankle and Foot Manual Muscle Testing Bilateral Dorsiflexion (L4) 4+ Good+ PT-OP-Q Treatments Start: 06/13/23 10:44 Freq: Status: Active Protocol: Document 07/10/23 11:12 SP (Rec: 07/10/23 12:27 SP [id number]) Therapeutic Exercises Sitting Exercises Side to side Equipment Used BIG chair Reps/Minutes 10 to each side Comments Flicks, better R leg back Floor to ceiling Equipment Used BIG chair Reps/Minutes 10 Comments Model/shape up, then out, not arching- Standing Exercises Adapted side rock and reach Standing Exercise Name PT assist to move foot Equipment Used BIG chair behind Reps/Minutes 10 Comments Limited trunk going to L, better on R, cued pivot on back toe Adapted forward rock and reach Reps/Minutes 10 adaptive, 5 no support ( close SBA) Comments improved arm swing, cautious wt shift no support Adapted backwards step Equipment Used Ballet Reps/Minutes 10 each side Comments Cues arm higher behind Adapted side step Standing Exercise Name alternate sides Equipment Used Ballet bar Reps/Minutes 10 each side Comments Cues to bring foot back, lift UE higher x1 Adapted forward stepping Equipment Used Ballet bar Reps/Minutes 10 each side Comments Cues better emphasis foot back together Therapeutic Activity Therapeutic Activity hand writing. Name Jhoan libs, letters, signature, sentences Comments and PT give some longer words work ok writing pt big in smaller spaces, checkerboard, [place]. BIG transfer into passenger seat Reps/Minutes 2 Comments Performed great today big LEs into car step, modeled and improved performanced fluid pivot and back step to car BIG with rollator. BIG STS Reps/Minutes 10 Comments reach forward coming to stand. Feet //. Modeled full upright stand. Gait Training Gait Activity Gait training with rollator Description 78-80 BPM 1st lap, regular BIG step 2nd lap, to car Comments Multiple gait training trials in the clinic and outside using rollator and cues to step big /c DF foot clearance and stay closer to the walker, step over step even turns, fluid to and back step to car. PT-OP-T Assessment and Plan Start: 06/13/23 10:44 Freq: Status: Active Protocol: Document 07/10/23 11:12 SP (Rec: 07/10/23 12:27 SP [id number]) Physical Therapy Assessment Goals 4 Impairment FES score is 55/69 Rental Manager Goal (LTG) Pt will present with score of no more than 45/64 on Falls Efficacy Scale to decrease perception of falls and fall risk. 07/04/23: Progress as FES score is 44/64 LTG Duration 5 weeks 3 Impairment Lack of PD specific HEP Rental Manager Goal (LTG) Pt will perform BIG exercises and functional activities with no more than cues from to improve amplitude of movement, balance and strength. 07/04/23: Pt is performing exercises at home when she is feeling well. She is doing buttoning, handwriting and getting in and out of car as well LTG Duration 5 weeks 2 Impairment TUG in 26 sec with use of her w/c walker Rental Manager Goal (LTG) Pt will perform TUG in no more than 15 sec with use of LRAD to decrease fall risk. 07/04/23: First rep, 25 sec; 2nd rep, 24 sec; 3rd rep 23 sec; 4th rep: 23 sec; 5th rep: 22 sec LTG Duration 5 weeks 1 Impairment 5 reps STS in 30 sec in BIG chair Longterm Goal (LTG) Pt will perform at least 12 reps STS in BIG chair in 30 sec to improve functional balance with transfers. 07/04/23: First set 5 reps; second set 7 reps with better weight shift and use of arms similar to BIG exercises LTG Duration 5 weeks Assessment Summary Assessment Pt improved self corrections arm lifting higher holding up the clock on the wall, LLE adjustment back little more and corrections closer/BIgger stepping over threshold leaving building fluid step over step. She maintained closer/receiprocal stepping 80 % time out to car. Had to review once close to car continue fluid step over step, stop reset if needed for recovery performance self better. She was able to alternate side step reaches, little slower pacing. Physical Therapy Plan Frequency and Duration Frequency of Treatment 4x/Week Duration of treatment (weeks) 5 Plan of Care Start Date 06/13/23 Plan of Care End Date 07/24/23 Therapeutic Interventions Therapeutic Interventions Balance Training,Canalithic Repositioning,Coordination Training,Gait Training,Home Exercise Program,Neuromuscular Re-education,Patient/ Caregiver Education,Self-Care/ Home Management,Therapeutic Activities,Therapeutic Exercises Modalities Cold Pack/Ice Massage,Hot Packs Other Referrals/Consults Referrals/Consults Recommended [facility] for home assessment per pt request Next Visit Focus/Plan Next Note Type Treatment Note Next Visit Plan HW: fluid receiprocal stepping to car, backing up to chair. Review adapted BIG exercises. Funtional tasks include buttoning, handwriting, getting in and out of low and deep seats and getting in and out of the car.
--- NOTE | 2023-07-11 10:52 | PT-OP ANOTE ---
Pt canceled appointment same day d/t sickness.
--- NOTE | 2023-07-12 11:32 | PT.OTN ---
Current Diagnoses Parkinsonism, unspecified (07/12/23) Other specified disorders of brain (07/12/23) Unspecified disorder of binocular movement (07/12/23) Other abnormalities of gait and mobility (07/12/23) Apraxia (07/12/23) Unspecified fall, sequela (07/12/23) Dependence on wheelchair (07/12/23) Physical Therapy Treatment Note PT-OP-A Visit Information Start: 06/13/23 10:44 Freq: Status: Active Protocol: Document 07/12/23 10:36 MB (Rec: 07/12/23 11:32 MB [id number]) Out-Patient Physical Therapy Visit Information Visit Information Visit Type Treatment Note Visit Start Time 10:36 Visit Stop Time 11:30 Visit Number 13 Number of STAMP CLERK Visits 0 PT-OP-B Current Condition Start: 06/13/23 10:44 Freq: Status: Active Protocol: Document 06/13/23 10:54 MB (Rec: 06/13/23 11:44 MB [id number]) Current Condition History of Current Condition Onset Date 2018 Current Complaints Weakness and unsteady walking History of Current Condition Pt, Farhana, and spouse, Donavan, arrive to the appointment and pt transported in the w/c. Pt was diagnosed with supranuclear palsy in April of 2023. Pt saw neurologist in 2019 d/t trouble with walking. She had a small tremor at the time. The movement specialist did a test with her eyes and did not see any tracking/a normal response with an eye exam and she sees neuro opthalmologist in August of 2023. Pt is a furniture walker at home. She uses transfer walker chair in the house as well as as pushes it. She uses a power chair for longer walks. She has a ramp to enter her home and they are starting to use it. She is showering I. She is standing in the shower and has does not have grab bars. She is interested in the OT who does home assessments. She is sitting to do her dressing. Pt has been doing a lot of rigorous exercises in the bed with weights. Kvng states that pt does get more challenged with fatigue. A little bit of extra stress increases the freezing. Treatment Goals Patient/Caregiver Goals To do better with her walking and to slow the progression PT-OP-C Subjective Start: 06/13/23 10:44 Freq: Status: Active Protocol: Document 07/12/23 10:36 MB (Rec: 07/12/23 11:32 MB [id number]) OP-PT Subjective Patient Comments Patient Comments Pt and ask about walkers. Pt states that she had a freezing episode after getting the COVID vaccine and she could not move her feet well and had to cancel PT. She had a fever as well. She had a freezing event after first COVID vaccine as well. borrowed BSC from [employer] to use as needed. PT-OP-D Balance Start: 06/13/23 10:44 Freq: Status: Active Protocol: Document 06/13/23 10:54 MB (Rec: 06/13/23 14:03 MB [id number]) OP-PT Balance Assessment Sitting Balance Static Sitting Balance Ability Good Dynamic Sitting Balance Ability Fair Standing Balance Static Standing Balance Ability Fair Dynamic Standing Balance Ability Poor Device Used CGA from PT or wall or w/c walker Balance Tests Other Other Balance Tests Performed Pt must use wall and requires increased time to get into Romberg and she holds position for 20 sec. LOB with Romberg with EC. 3 sec SLS on right leg and 0 sec on left leg. Pinto Fall Scale Copyright Permission PT-OP-G Mobility & Gait Start: 06/13/23 10:44 Freq: Status: Active Protocol: Document 06/13/23 10:54 MB (Rec: 06/13/23 14:03 MB [id number]) OP Gait Assessment Comments Gait Comments Pt requires CGA to gait train with her w/c walker and she requires cues to step closer to it. It is too tall for her and her states it is at that height so that he can use it to push her when it is being used as a w/c. Ed pt and in benefits of a rollator from [employer] to allow a smaller AD for gait at home and in the PT clinic and they are open to going to look for a device PT-OP-H Neuro Start: 06/13/23 10:44 Freq: Status: Active Protocol: Document 06/13/23 10:54 MB (Rec: 06/13/23 14:03 MB [id number]) Coordination Evaluation Upper Extremity Tests Left Finger to Nose Test Minimal Impairment Pronation/Supination Test Minimal Impairment Right Finger to Nose Test Minimal Impairment Pronation/Supination Test Minimal Impairment Lower Extremity Tests Left Alternate Heel to Knee; Heel to Toe Test Minimal Impairment Foot Tapping Test Moderate Impairment Right Alternate Heel to Knee; Heel to Toe Test Minimal Impairment Foot Tapping Test Minimal Impairment Vital Signs Comments Vital Signs Comments Pt denies light-headedness when getting up and so did not check orthostatics PT-OP-J Posture/Palpation/Skin Start: 06/13/23 10:44 Freq: Status: Active Protocol: Document 06/13/23 10:54 MB (Rec: 06/13/23 14:03 MB [id number]) Posture Evaluation Comments Posture Comments Severe scoliotic posture in standing with flexed posture at hips and SB and rotation to the right PT-OP-K Range of Motion Start: 06/13/23 10:44 Freq: Status: Active Protocol: Document 06/13/23 10:54 MB (Rec: 06/13/23 14:03 MB [id number]) Shoulder Goniometric Range of Motion Shoulder Left Shoulder ROM WFL No Testing Position Sitting Flexion 120 Right Shoulder ROM WFL Yes Testing Position Sitting PT-OP-M Strength Start: 06/13/23 10:44 Freq: Status: Active Protocol: Document 06/13/23 10:54 MB (Rec: 06/13/23 14:03 MB [id number]) Shoulder Strength Shoulder Manual Muscle Testing Left Flexion 4 Good Abduction (C5) 4 Good Right Flexion 4+ Good+ Abduction (C5) 4+ Good+ Hip Strength Hip Manual Muscle Testing Bilateral Flexion (L2) 4+ Good+ Knee Strength Knee Manual Muscle Testing Bilateral Flexion (S2) 4+ Good+ Extension (L3) 4+ Good+ Ankle/Foot Strength Ankle and Foot Manual Muscle Testing Bilateral Dorsiflexion (L4) 4+ Good+ PT-OP-Q Treatments Start: 06/13/23 10:44 Freq: Status: Active Protocol: Document 07/12/23 10:36 MB (Rec: 07/12/23 11:32 MB [id number]) Therapeutic Exercises Sitting Exercises Side to side Equipment Used BIG chair Reps/Minutes 5 reps to each side Comments Flicks Floor to ceiling Equipment Used BIG chair Reps/Minutes 5 Standing Exercises Adapted side rock and reach Equipment Used BIG chair behind Reps/Minutes 10 Comments This is troublesome for pt and bothers back Adapted forward rock and reach Equipment Used BIG chair at side Reps/Minutes 10 Comments Some trouble coordinating arm Adapted backwards step Equipment Used BIG chair Reps/Minutes 10 each side Adapted side step Equipment Used BIG chair Reps/Minutes 10 each side Adapted forward stepping Equipment Used BIG chair Reps/Minutes 10 each side Therapeutic Activity Therapeutic Activity STS from varying surfaces Comments STS from various surfaces in the gym to improve locking and unlocking walker, safe transfers, check hand placement and to try when arm rests are available and when they are not and pt requires occ cues BIG transfer into passenger seat Comments Performed getting into passenger seat to practice BIG backing up and getting into the car BIG STS Reps/Minutes 10 Comments BIG chair, better reaching forward Gait Training Gait Activity Gait training with rollator Comments Multiple gait trials with rollator to work on changing direction, BIG steps, transferring, gait also outside in parking lot PT-OP-T Assessment and Plan Start: 06/13/23 10:44 Freq: Status: Active Protocol: Document 07/12/23 10:36 MB (Rec: 07/12/23 11:32 MB [id number]) Physical Therapy Assessment Rehab Potential Rehabilitation Potential Fair Evaluation Complexity Number of Personal Factors/Comorbidities 1-2 Number of Body Systems Impaired 3 Clinical Presentation at Evaluation Evolving Impairments Impairments Activity Tolerance,Balance, Coordination,Functional Activities,Functional Mobility ,Gait,Posture,ROM,Strength, Transfers Goals 4 Impairment FES score is 55/69 Vision Impaired Teacher Goal (LTG) Pt will present with score of no more than 45/64 on Falls Efficacy Scale to decrease perception of falls and fall risk. 07/04/23: Progress as FES score is 44/64 LTG Duration 5 weeks 3 Impairment Lack of PD specific HEP [facility]pc Goal (LTG) Pt will perform BIG exercises and functional activities with no more than cues from to improve amplitude of movement, balance and strength. 07/04/23: Pt is performing exercises at home when she is feeling well. She is doing buttoning, handwriting and getting in and out of car as well LTG Duration 5 weeks 2 Impairment TUG in 26 sec with use of her w/c walker Vision Impaired Teacher Goal (LTG) Pt will perform TUG in no more than 15 sec with use of LRAD to decrease fall risk. 07/04/23: First rep, 25 sec; 2nd rep, 24 sec; 3rd rep 23 sec; 4th rep: 23 sec; 5th rep: 22 sec LTG Duration 5 weeks 1 Impairment 5 reps STS in 30 sec in BIG chair Vision Impaired Teacher Goal (LTG) Pt will perform at least 12 reps STS in BIG chair in 30 sec to improve functional balance with transfers. 07/04/23: First set 5 reps; second set 7 reps with better weight shift and use of arms similar to BIG exercises LTG Duration 5 weeks Assessment Summary Assessment Pt is feeling better and moving better after being ill yesterday. She has one more BIG treatment and then final treatment that is d/c. Physical Therapy Plan Frequency and Duration Frequency of Treatment 4x/Week Duration of treatment (weeks) 5 Plan of Care Start Date 06/13/23 Plan of Care End Date 07/24/23 Therapeutic Interventions Therapeutic Interventions Balance Training,Canalithic Repositioning,Coordination Training,Gait Training,Home Exercise Program,Neuromuscular Re-education,Patient/ Caregiver Education,Self-Care/ Home Management,Therapeutic Activities,Therapeutic Exercises Modalities Cold Pack/Ice Massage,Hot Packs Next Visit Focus/Plan Next Note Type Treatment Note
--- NOTE | 2023-07-13 12:18 | PT.OTN ---
Current Diagnoses Parkinsonism, unspecified (07/13/23) Other specified disorders of brain (07/13/23) Unspecified disorder of binocular movement (07/13/23) Other abnormalities of gait and mobility (07/13/23) Apraxia (07/13/23) Unspecified fall, sequela (07/13/23) Dependence on wheelchair (07/13/23) Physical Therapy Treatment Note PT-OP-A Visit Information Start: 06/13/23 10:44 Freq: Status: Active Protocol: Document 07/13/23 11:19 SP (Rec: 07/13/23 12:25 SP [id number]) Out-Patient Physical Therapy Visit Information Visit Information Visit Type Treatment Note Visit Start Time 11:18 Visit Stop Time 12:18 Visit Number 14 Number of ELECTROTYPER HELPER Visits 1 Evaluation Information Evaluation Date 06/13/23 PT-OP-B Current Condition Start: 06/13/23 10:44 Freq: Status: Active Protocol: Document 06/13/23 10:54 MB (Rec: 06/13/23 11:44 MB [id number]) Current Condition History of Current Condition Onset Date 2018 Current Complaints Weakness and unsteady walking History of Current Condition Pt, Farhana, and spouse, Donavan, arrive to the appointment and pt transported in the w/c. Pt was diagnosed with supranuclear palsy in April of 2023. Pt saw neurologist in 2019 d/t trouble with walking. She had a small tremor at the time. The movement specialist did a test with her eyes and did not see any tracking/a normal response with an eye exam and she sees neuro opthalmologist in August of 2023. Pt is a furniture walker at home. She uses transfer walker chair in the house as well as as pushes it. She uses a power chair for longer walks. She has a ramp to enter her home and they are starting to use it. She is showering I. She is standing in the shower and has does not have grab bars. She is interested in the OT who does home assessments. She is sitting to do her dressing. Pt has been doing a lot of rigorous exercises in the bed with weights. Kvng states that pt does get more challenged with fatigue. A little bit of extra stress increases the freezing. Treatment Goals Patient/Caregiver Goals To do better with her walking and to slow the progression PT-OP-C Subjective Start: 06/13/23 10:44 Freq: Status: Active Protocol: Document 07/13/23 11:19 SP (Rec: 07/13/23 12:25 SP [id number]) OP-PT Subjective Patient Comments Patient Comments Pt had another freezing episode (stationary stand unable to move feet) going into bathroom last night using 4WW, had to call to come help her then assist her the rest way to the bathroom seated on 4WW. Pt and discussed use of the borrowed BSC for those times safety unable move BLEs. Many times lastx 12 hrs unable to move standing, but after went back to bed she was ok when woke up . Believes brief freezing ok and normal for most but not hers last longer in standing, is going to call physician if need different med mgt or if neurololgical new problem. PT-OP-D Balance Start: 06/13/23 10:44 Freq: Status: Active Protocol: Document 06/13/23 10:54 MB (Rec: 06/13/23 14:03 MB [id number]) OP-PT Balance Assessment Sitting Balance Static Sitting Balance Ability Good Dynamic Sitting Balance Ability Fair Standing Balance Static Standing Balance Ability Fair Dynamic Standing Balance Ability Poor Device Used CGA from PT or wall or w/c walker Balance Tests Other Other Balance Tests Performed Pt must use wall and requires increased time to get into Romberg and she holds position for 20 sec. LOB with Romberg with EC. 3 sec SLS on right leg and 0 sec on left leg. Pinto Fall Scale Copyright Permission PT-OP-G Mobility & Gait Start: 06/13/23 10:44 Freq: Status: Active Protocol: Document 06/13/23 10:54 MB (Rec: 06/13/23 14:03 MB [id number]) OP Gait Assessment Comments Gait Comments Pt requires CGA to gait train with her w/c walker and she requires cues to step closer to it. It is too tall for her and her states it is at that height so that he can use it to push her when it is being used as a w/c. Ed pt and [facility] allow a smaller AD for gait at home and in the PT clinic and they are open to going to look for a device PT-OP-H Neuro Start: 06/13/23 10:44 Freq: Status: Active Protocol: Document 06/13/23 10:54 MB (Rec: 06/13/23 14:03 MB [id number]) Coordination Evaluation Upper Extremity Tests Left Finger to Nose Test Minimal Impairment Pronation/Supination Test Minimal Impairment Right Finger to Nose Test Minimal Impairment Pronation/Supination Test Minimal Impairment Lower Extremity Tests Left Alternate Heel to Knee; Heel to Toe Test Minimal Impairment Foot Tapping Test Moderate Impairment Right Alternate Heel to Knee; Heel to Toe Test Minimal Impairment Foot Tapping Test Minimal Impairment Vital Signs Comments Vital Signs Comments Pt denies light-headedness when getting up and so did not check orthostatics PT-OP-J Posture/Palpation/Skin Start: 06/13/23 10:44 Freq: Status: Active Protocol: Document 06/13/23 10:54 MB (Rec: 06/13/23 14:03 MB [id number]) Posture Evaluation Comments Posture Comments Severe scoliotic posture in standing with flexed posture at hips and SB and rotation to the right PT-OP-K Range of Motion Start: 06/13/23 10:44 Freq: Status: Active Protocol: Document 06/13/23 10:54 MB (Rec: 06/13/23 14:03 MB [id number]) Shoulder Goniometric Range of Motion Shoulder Left Shoulder ROM WFL No Testing Position Sitting Flexion 120 Right Shoulder ROM WFL Yes Testing Position Sitting PT-OP-M Strength Start: 06/13/23 10:44 Freq: Status: Active Protocol: Document 06/13/23 10:54 MB (Rec: 06/13/23 14:03 MB [id number]) Shoulder Strength Shoulder Manual Muscle Testing Left Flexion 4 Good Abduction (C5) 4 Good Right Flexion 4+ Good+ Abduction (C5) 4+ Good+ Hip Strength Hip Manual Muscle Testing Bilateral Flexion (L2) 4+ Good+ Knee Strength Knee Manual Muscle Testing Bilateral Flexion (S2) 4+ Good+ Extension (L3) 4+ Good+ Ankle/Foot Strength Ankle and Foot Manual Muscle Testing Bilateral Dorsiflexion (L4) 4+ Good+ PT-OP-Q Treatments Start: 06/13/23 10:44 Freq: Status: Active Protocol: Document 07/13/23 11:19 SP (Rec: 07/13/23 12:25 SP [id number]) Therapeutic Exercises Sitting Exercises Side to side Sitting Exercise Name alternate sides 5 reps Equipment Used BIG chair Reps/Minutes 5 reps same side, then alternatie 5 reps to each side for assess progressio Comments Flicks, shaped trunk turn in seat more, better LE back as turns. Floor to ceiling Equipment Used BIG chair Reps/Minutes 10 Comments good big arms and strong single flicks Standing Exercises Adapted side rock and reach Equipment Used BIG chair behind Reps/Minutes 10 Comments rotate range able, self monitor back pain. cued pivot back leg Adapted forward rock and reach Equipment Used rail nearby (close SBA/CGA) Reps/Minutes 10 Comments Some trouble wt shift stab, little back discomf with arms high Adapted backwards step Equipment Used BIG chair Reps/Minutes 10 each side Comments cued trunk flexion, good BIG arm reach back Adapted side step Equipment Used BIG chair Reps/Minutes 10 each side Comments arms higher hold up clock, occ ft return start position Adapted forward stepping Equipment Used BIG chair Reps/Minutes 10 each side Comments 1 flick, ft return center Therapeutic Activity Therapeutic Activity BIG buttoning Name challenge shirt behind back Comments Pt standing front of chair: don (29 sec) and button: 1:41; unbutton 13 sec and doff: 21 sec. 2nd rep: start again missed button don (49sec)/ button 2:03; unbutton ( 28sec) /doff: 36 sec. hand writing. Name Pt feels doing well now, not need continue in tx BIG transfer into passenger seat Comments Performed getting into passenger seat to practice BIG backing up and getting into the car BIG STS Reps/Minutes 10 Comments BIG chair, better reaching forward ease ascend/desc Gait Training Gait Activity Gait training with rollator Comments Multiple gait trials with rollator to work on changing direction, BIG fluid vs marching steps, transferring between chairs: pivot/ backstepping, rollator mgt around cones, gait also outside in parking lot. PT-OP-T Assessment and Plan Start: 06/13/23 10:44 Freq: Status: Active Protocol: Document 07/13/23 11:19 SP (Rec: 07/13/23 12:25 SP [id number]) Physical Therapy Assessment Goals 4 Impairment FES score is 55/69 Rn Informatics Goal (LTG) Pt will present with score of no more than 45/64 on Falls Efficacy Scale to decrease perception of falls and fall risk. 07/04/23: Progress as FES score is 44/64 LTG Duration 5 weeks 3 Impairment Lack of PD specific HEP Nursing Home Goal (LTG) Pt will perform BIG exercises and functional activities with no more than cues from to improve amplitude of movement, balance and strength. 3: Pt is performing exercises at home when she is feeling well. She is doing buttoning, handwriting and getting in and out of car as well LTG Duration 5 weeks 2 Impairment TUG in 26 sec with use of her w/c walker Rn Informatics Goal (LTG) Pt will perform TUG in no more than 15 sec with use of LRAD to decrease fall risk. 07/04/23: First rep, 25 sec; 2nd rep, 24 sec; 3rd rep 23 sec; 4th rep: 23 sec; 5th rep: 22 sec LTG Duration 5 weeks 1 Impairment 5 reps STS in 30 sec in BIG chair Rn Informatics Goal (LTG) Pt will perform at least 12 reps STS in BIG chair in 30 sec to improve functional balance with transfers. 07/04/23: First set 5 reps; second set 7 reps with better weight shift and use of arms similar to BIG exercises LTG Duration 5 weeks Assessment Summary Assessment Pt improved alternating sides with side to side sit and standing, discussed continuous count total easiest remember. Improved single strong flick, occasional shaping for arm lift best her stating hold up the clock. Better BIG stepping and more fluid during pivot and corner like turns with more time emphasis today. Discontinued practice writing , she feels doing well now. Pt still having freezing x2 instances in evening that longer than should be, will be contacting if need further assessement. WIll be using BSC if needed for these times safety unable to move feet while in standing. Physical Therapy Plan Frequency and Duration Frequency of Treatment 4x/Week Duration of treatment (weeks) 5 Plan of Care Start Date 06/13/23 Plan of Care End Date 07/24/23 Therapeutic Interventions Therapeutic Interventions Balance Training,Canalithic Repositioning,Coordination Training,Gait Training,Home Exercise Program,Neuromuscular Re-education,Patient/ Caregiver Education,Self-Care/ Home Management,Therapeutic Activities,Therapeutic Exercises Modalities Cold Pack/Ice Massage,Hot Packs Other Referrals/Consults Referrals/Consults Recommended [facility] for home assessment per pt request Next Visit Focus/Plan Next Note Type Discharge Summary Next Visit Plan Next tx last visit
--- NOTE | 2023-07-17 15:00 | PT.OTN ---
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) Other abnormalities of gait and mobility (07/17/23) Apraxia (07/17/23) Unspecified fall, sequela (07/17/23) Dependence on wheelchair (07/17/23) Physical Therapy Treatment Note PT-OP-A Visit Information Start: 06/13/23 10:44 Freq: Status: Active Protocol: Document 07/17/23 14:02 MB (Rec: 07/17/23 14:59 MB [id number]) Out-Patient Physical Therapy Visit Information Visit Information Visit Type Treatment Note Visit Start Time 14:02 Visit Stop Time 15:55 Visit Number 15 Number of COSMETIC SALES Visits 0 PT-OP-B Current Condition Start: 06/13/23 10:44 Freq: Status: Active Protocol: Document 06/13/23 10:54 MB (Rec: 06/13/23 11:44 MB [id number]) Current Condition History of Current Condition Onset Date 2018 Current Complaints Weakness and unsteady walking History of Current Condition Pt, Farhana, and spouse, Donavan, arrive to the appointment and pt transported in the w/c. Pt was diagnosed with supranuclear palsy in April of 2023. Pt saw neurologist in 2019 d/t trouble with walking. She had a small tremor at the time. The movement specialist did a test with her eyes and did not see any tracking/a normal response with an eye exam and she sees neuro opthalmologist in August of 2023. Pt is a furniture walker at home. She uses transfer walker chair in the house as well as as pushes it. She uses a power chair for longer walks. She has a ramp to enter her home and they are starting to use it. She is showering I. She is standing in the shower and has does not have grab bars. She is interested in the OT who does home assessments. She is sitting to do her dressing. Pt has been doing a lot of rigorous exercises in the bed with weights. Kvng states that pt does get more challenged with fatigue. A little bit of extra stress increases the freezing. Treatment Goals Patient/Caregiver Goals To do better with her walking and to slow the progression PT-OP-C Subjective Start: 06/13/23 10:44 Freq: Status: Active Protocol: Document 07/17/23 14:02 MB (Rec: 07/17/23 14:59 MB [id number]) OP-PT Subjective Patient Comments Patient Comments Pt thinks that BIG was helpful and she is going to keep up with it. Her is in agreement. PT-OP-D Balance Start: 06/13/23 10:44 Freq: Status: Active Protocol: Document 06/13/23 10:54 MB (Rec: 06/13/23 14:03 MB [id number]) OP-PT Balance Assessment Sitting Balance Static Sitting Balance Ability Good Dynamic Sitting Balance Ability Fair Standing Balance Static Standing Balance Ability Fair Dynamic Standing Balance Ability Poor Device Used CGA from PT or wall or w/c walker Balance Tests Other Other Balance Tests Performed Pt must use wall and requires increased time to get into Romberg and she holds position for 20 sec. LOB with Romberg with EC. 3 sec SLS on right leg and 0 sec on left leg. Pinto Fall Scale Copyright Permission PT-OP-G Mobility & Gait Start: 06/13/23 10:44 Freq: Status: Active Protocol: Document 06/13/23 10:54 MB (Rec: 06/13/23 14:03 MB [id number]) OP Gait Assessment Comments Gait Comments Pt requires CGA to gait train with her w/c walker and she requires cues to step closer to it. It is too tall for her and her states it is at that height so that he can use it to push her when it is being used as a w/c. Ed pt and in benefits of a rollator from [employer] to allow a smaller AD for gait at home and in the PT clinic and they are open to going to look for a device PT-OP-H Neuro Start: 06/13/23 10:44 Freq: Status: Active Protocol: Document 06/13/23 10:54 MB (Rec: 06/13/23 14:03 MB [id number]) Coordination Evaluation Upper Extremity Tests Left Finger to Nose Test Minimal Impairment Pronation/Supination Test Minimal Impairment Right Finger to Nose Test Minimal Impairment Pronation/Supination Test Minimal Impairment Lower Extremity Tests Left Alternate Heel to Knee; Heel to Toe Test Minimal Impairment Foot Tapping Test Moderate Impairment Right Alternate Heel to Knee; Heel to Toe Test Minimal Impairment Foot Tapping Test Minimal Impairment Vital Signs Comments Vital Signs Comments Pt denies light-headedness when getting up and so did not check orthostatics PT-OP-J Posture/Palpation/Skin Start: 06/13/23 10:44 Freq: Status: Active Protocol: Document 06/13/23 10:54 MB (Rec: 06/13/23 14:03 MB [id number]) Posture Evaluation Comments Posture Comments Severe scoliotic posture in standing with flexed posture at hips and SB and rotation to the right PT-OP-K Range of Motion Start: 06/13/23 10:44 Freq: Status: Active Protocol: Document 06/13/23 10:54 MB (Rec: 06/13/23 14:03 MB [id number]) Shoulder Goniometric Range of Motion Shoulder Left Shoulder ROM WFL No Testing Position Sitting Flexion 120 Right Shoulder ROM WFL Yes Testing Position Sitting PT-OP-M Strength Start: 06/13/23 10:44 Freq: Status: Active Protocol: Document 06/13/23 10:54 MB (Rec: 06/13/23 14:03 MB [id number]) Shoulder Strength Shoulder Manual Muscle Testing Left Flexion 4 Good Abduction (C5) 4 Good Right Flexion 4+ Good+ Abduction (C5) 4+ Good+ Hip Strength Hip Manual Muscle Testing Bilateral Flexion (L2) 4+ Good+ Knee Strength Knee Manual Muscle Testing Bilateral Flexion (S2) 4+ Good+ Extension (L3) 4+ Good+ Ankle/Foot Strength Ankle and Foot Manual Muscle Testing Bilateral Dorsiflexion (L4) 4+ Good+ PT-OP-Q Treatments Start: 06/13/23 10:44 Freq: Status: Active Protocol: Document 07/17/23 14:02 MB (Rec: 07/17/23 14:59 MB [id number]) Therapeutic Exercises Sitting Exercises Side to side Equipment Used BIG chair Reps/Minutes 6 reps alternating Comments Cues for hand movement Floor to ceiling Equipment Used BIG chair Reps/Minutes 7 Comments Better movement Standing Exercises Adapted side rock and reach Equipment Used BIG chair behind Reps/Minutes 10 Comments Ongoing cues for pivot on toe and finish the exercise with slapping thigh Adapted forward rock and reach Equipment Used BIG chair Reps/Minutes 10 Comments Improved weight shift Adapted backwards step Equipment Used BIG chair Reps/Minutes 10 Comments Cues for big front toe Adapted side step Equipment Used BIG chair Reps/Minutes 10 Comments Better performance Adapted forward stepping Equipment Used BIG chair Reps/Minutes 10 Comments Better performance Therapeutic Activity Therapeutic Activity STS from varying surfaces Comments Performed today to assess safety with locking rollator and ability to transfer and pt is doing much better BIG transfer into passenger seat Comments Performed today after gait training to the car and pt does move more slowly today, especially with retropulsion BIG STS Reps/Minutes 10 Comments Cues to reach forward Gait Training Gait Activity Gait training with rollator Comments Many trials inside and outside today with rollator and cues for BIG stepping and staying close to rollator Neuro Re-Education Treatment Balance Activities 30 sec STS Comments Performed today and see results below TUG Comments Performed 3 times today with best time 20 sec PT-OP-T Assessment and Plan Start: 06/13/23 10:44 Freq: Status: Active Protocol: Document 07/17/23 14:02 MB (Rec: 07/17/23 14:59 MB [id number]) Physical Therapy Assessment Rehab Potential Rehabilitation Potential Fair Evaluation Complexity Number of Personal Factors/Comorbidities 1-2 Number of Body Systems Impaired 3 Clinical Presentation at Evaluation Evolving Impairments Impairments Activity Tolerance,Balance, Coordination,Functional Activities,Functional Mobility ,Gait,Posture,ROM,Strength, Transfers Goals 4 Impairment FES score is 55/69 [facility] Goal (LTG) Pt will present with score of no more than 45/64 on Falls Efficacy Scale to decrease perception of falls and fall risk. 07/04/23: Progress as FES score is 44/64 07/17/23: FES score is 33/64, much improved from assessment date and ongoing improvement since progress note LTG Duration Improved 3 Impairment Lack of PD specific HEP [facility] Goal (LTG) Pt will perform BIG exercises and functional activities with no more than cues from to improve amplitude of movement, balance and strength. 07/04/23: Pt is performing exercises at home when she is feeling well. She is doing buttoning, handwriting and getting in and out of car as well 07/17/23: Pt is performing BIG exercises, handwriting and buttoning at home LTG Duration Met 2 Impairment TUG in 26 sec with use of her w/c walker [facility] Goal (LTG) Pt will perform TUG in no more than 15 sec with use of LRAD to decrease fall risk. 07/04/23: First rep, 25 sec; 2nd rep, 24 sec; 3rd rep 23 sec; 4th rep: 23 sec; 5th rep: 22 sec 07/17/23: 21 sec; 20 sec; 20 sec LTG Duration Improved 1 Impairment 5 reps STS in 30 sec in BIG chair [facility] Goal (LTG) Pt will perform at least 12 reps STS in BIG chair in 30 sec to improve functional balance with transfers. 07/04/23: First set 5 reps; second set 7 reps with better weight shift and use of arms similar to BIG exercises 07/17/23: 7 reps in 30 sec LTG Duration Improved and plateaued Assessment Summary Assessment Pt has done well with BIG therapy. She was only able to complete 15 treatments d/t illness and now is leaving for [facility] for two weeks. She has progressed towards all goals. She may benefit from refresher in 6 months and ed pt and in this. Physical Therapy Plan Frequency and Duration Frequency of Treatment 4x/Week Duration of treatment (weeks) 5 Plan of Care Start Date 06/13/23 Plan of Care End Date 07/24/23 Therapeutic Interventions Therapeutic Interventions Balance Training,Canalithic Repositioning,Coordination Training,Gait Training,Home Exercise Program,Neuromuscular Re-education,Patient/ Caregiver Education,Self-Care/ Home Management,Therapeutic Activities,Therapeutic Exercises Modalities Cold Pack/Ice Massage,Hot Packs Other Referrals/Consults Referrals/Consults Recommended [facility] for home assessment per pt request Next Visit Focus/Plan Next Note Type Discharge Summary Next Visit Plan Next tx last visit
== END 2023-07-19 13:47 | disposition home or self-care (01) ==
LOC: PHYS 14:00
PROVIDERS: Family Provider Internal Medicine; PCP Internal Medicine; Referring Provider Psychiatry & Neurology Neurology; Visit Provider Psychiatry & Neurology Neurology
DX: G20.C Parkinsonism, unspecified (principal); H51.9 Unspecified disorder of binocular movement; R48.2 Apraxia; G93.89 Other specified disorders of brain; R26.89 Other abnormalities of gait and mobility; W19.XXXS Unspecified fall, sequela; Z99.3 Dependence on wheelchair
CPT/HCPCS: 97110; 97112; 97116; 97161; 97530; 97535